=== PATIENT | male | born 1945 | race Caucasian/White ===

== ENCOUNTER 2021-12-14 09:51 | Inpatient (IN) | payer MEDICARE, OTHER ==
[2021-12-14 10:12] LABS: Glucose,Whole Blood 190 mg/dL (75-99)
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
[2021-12-14 10:40] LABS: Basophils % (A) 1 %; Eosinophils # (A) 0.1 k/uL (0-0.7); Eosinophils % (A) 2 %; HCT 44.2 % (39.0-53.0); HGB 15.2 gm/dL (13.0-17.5); Lymphocytes # (A) 1.4 k/uL (1.0-4.8); Lymphocytes % (A) 25 %; MCH 30.9 pg (25.0-35.0); MCHC 34.4 g/dL (31.0-37.0); Mean Platelet Volume 7.5; Monocytes # (A) 0.4 k/uL (0-1.0); Monocytes % (A) 7 %; Neutrophils # (A) 3.5 k/uL (1.3-7.7); Neutrophils % (A) 63 %; Platelet Count 162 k/uL (150-450); RBC 4.92 m/uL (4.30-5.90); RDW 13.5 % (11.5-15.5); WBC 5.6 k/uL (3.8-10.6)
[2021-12-14 10:52] LABS: Partial Thromboplastin Time 23.2 sec (22.0-30.0); Prothrombin Time 11.2 sec (9.0-12.0)
--- NOTE | 2021-12-14 11:00 | XR ---
EXAMINATION TYPE: XR chest 2V DATE OF EXAM: 12/14/2021 COMPARISON: Unavailable HISTORY: 76-year-old male, dysrhythmia TECHNIQUE: Frontal and lateral views of the chest are obtained. FINDINGS: Increased cardiac transverse diameter with slightly congested pulmonary vasculature, mild pulmonary e martin can't be excluded. Grossly unremarkable remainder of the lungs. No sizable pleural effusion or definite pneumothorax. Levoscoliosis of the upper thoracic spine. IMPRESSION: Please correlate for mild pulmonary edema. Increased cardiac transverse diameter.
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
[2021-12-14] MEDS ORDERED: NALOXONE 0.4 MG/ML 1 ML VIAL IV PRN (11:24)
[2021-12-14] MEDS ORDERED: IV FLUID CONTINUATION 1,000 ML IV ONE (11:52)
[2021-12-14] MEDS ORDERED: LIDOCAINE (PF) 10 MG/ML 5ML AMP SQ ONE ×3 (12:10→12:12)
[2021-12-14] MEDS ORDERED: LIDOCAINE 1% INJ 10MG/ML (20 ML MDV) SQ ONE (12:12)
[2021-12-14] MEDS ORDERED: LIDOCAINE 1% INJ 10MG/ML (10 ML MDV) SQ ONE (12:21)
[2021-12-14 13:35] LABS: Glucose,Whole Blood 160 mg/dL (75-99)
[2021-12-14] MEDS ORDERED: FAMOTIDINE 20 MG TAB PO PRN (13:35)
--- NOTE | 2021-12-14 14:02 | PCN ---
PROCEDURE NOTE PROCEDURE NOTE: INDICATION: Complete heart block. PROCEDURE DESCRIPTION: After obtaining informed consent, a temporary transvenous pacemaker was performed via the left femoral vein. Left femoral venous access was obtained using modified Seldinger technique, and the temporary transvenous pacemaker was floated into the right ventricle under fluoroscopic guidance. Adequate pacing and sensing thresholds were obtained and the temporary pacemaker was sutured into position. We will watch him overnight in the ICU and if he continues to require the temporary pacemaker, we will perform a permanent pacemaker on him. MMKILO / IJN: [id number] /
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
[2021-12-14 14:15] LABS: ALT 28 U/L (4-49); AST 31 U/L (17-59); African American GFR (CKD) >90 (>60 ml/min/1.73 sqM); Albumin 4.1 g/dL (3.5-5.0); Alkaline Phosphatase 32 U/L (38-126); Anion Gap 10 mmol/L; Blood Urea Nitrogen 16 mg/dL (9-20); Calcium 8.8 mg/dL (8.4-10.2); Carbon Dioxide 18 mmol/L (22-30); Chloride 110 mmol/L (98-107); Glucose 135 mg/dL (74-99); Magnesium 1.8 mg/dL (1.6-2.3); Non-African American GFR(CKD) 83 (>60 ml/min/1.73 sqM); Potassium 4.5 mmol/L (3.5-5.1); Sodium 138 mmol/L (137-145); Total Protein 6.8 g/dL (6.3-8.2)
[2021-12-14] MEDS ORDERED: Magnesium Replacement Protocol 1 EACH MISC MISCELLANE PRN (14:45)
[2021-12-14] MEDS: NON FORMULARY DRUG (Icosapent Ethyl [Vascepa] 0.5 GM Capsule) PO SCH (15:37)
[2021-12-14] MEDS: MAGNESIUM SULFATE-D5W PMX 1 GM in DEXTROSE/WATER 1 100ML.BAG IVPB SCH ×2 (16:00→17:41)
[2021-12-14 16:58] LABS: Glucose,Whole Blood 126 mg/dL (75-99)
[2021-12-14] MEDS: INSULIN ASPART (NovoLOG) 100 UNIT/ML VIAL SQ SCH ×2 (17:28→20:39)
[2021-12-14 20:32] LABS: Glucose,Whole Blood 141 mg/dL (75-99)
[2021-12-14] MEDS: ATORVASTATIN 10 MG TAB PO SCH (20:40)
[2021-12-14] MEDS: MELATONIN 3 MG TABLET PO SCH (20:40)
[2021-12-14] MEDS: FAMOTIDINE 20 MG TAB PO SCH (20:40)
[2021-12-15 06:14] LABS: Basophils % (A) 0 %; Eosinophils # (A) 0.1 k/uL (0-0.7); Eosinophils % (A) 2 %; HCT 44.6 % (39.0-53.0); HGB 15.2 gm/dL (13.0-17.5); Lymphocytes # (A) 1.5 k/uL (1.0-4.8); Lymphocytes % (A) 25 %; MCH 30.9 pg (25.0-35.0); MCHC 34.2 g/dL (31.0-37.0); MCV 90.3 fL (80.0-100.0); Monocytes # (A) 0.4 k/uL (0-1.0); Monocytes % (A) 6 %; Neutrophils # (A) 3.9 k/uL (1.3-7.7); Neutrophils % (A) 64 %; Platelet Count 183 k/uL (150-450); RBC 4.94 m/uL (4.30-5.90); RDW 13.9 % (11.5-15.5); WBC 6.1 k/uL (3.8-10.6)
[2021-12-15 06:38] LABS: Glucose,Whole Blood 136 mg/dL (75-99)
--- NOTE | 2021-12-15 06:44 | ECHOF ---
Referral Reason:LV function, complete heart block MEASUREMENTS -------- HEIGHT: 195.6 cm WEIGHT: 124.7 kg BP: 142/63 RVIDd: 3.1 cm (< 3.3) IVSd: 1.7 cm (0.6 - 1.1) LVIDd: 4.7 cm (3.9 - 5.3) LVPWd: 1.5 cm (0.6 - 1.1) IVSs: 2.1 cm LVIDs: 3.3 cm LVPWs: 1.9 cm LA Diam: 3.5 cm (2.7 - 3.8) Ao Diam: 3.6 cm (2.0 - 3.7) MV EXCURSION: 10.542 mm (> 18.000) MV EF SLOPE: 17 mm/s (70 - 150) EPSS: 1.1 cm MV E Baltazar: 0.61 m/s MV DecT: 214 ms MV A Baltazar: 0.66 m/s MV E/A Ratio: 0.92 RAP: 5.00 mmHg RVSP: 26.84 mmHg FINDINGS -------- Paced rhythm. This was a technically difficult study with suboptimal views. The left ventricular size is normal. There is moderate to severe concentric left ventricular hypert rophy. Overall left ventricular systolic function is mildly impaired with, an EF between 45 - 50 %. The right ventricle is normal in size. The left atrium is normal in size. The right atrium is normal in size. 3 ml of Lumason was utilized for enhancement of images. The aortic valve is trileaflet, and appears structurally normal. No aortic stenosis or regurgitation. The mitral valve is normal. Mild tricuspid regurgitation present. Right ventricular systolic pressure is normal at < 35 mmHg. The pulmonic valve is normal. The aortic root size is normal. There is no pericardial effusion. CONCLUSIONS -------- 1. This was a technically difficult study with suboptimal views. 2. The left ventricular size is normal. 3. There is moderate to severe concentric left ventricular hypertrophy. 4. Overall left ventricular systolic function is mildly impaired with, an EF between 45 - 50 %. 5. 3 ml of Lumason was utilized for enhancement of images. 6. Mild tricuspid regurgitation present. 7. There is no pericardial effusion. [employer]: Allyson Obrien RDCS
[2021-12-15] MEDS: NON FORMULARY DRUG (Icosapent Ethyl [Vascepa] 0.5 GM Capsule) PO SCH ×2 (06:45→13:55)
[2021-12-15] MEDS: INSULIN ASPART (NovoLOG) 100 UNIT/ML VIAL SQ SCH ×4 (06:45→20:13)
[2021-12-15 06:48] LABS: African American GFR (CKD) >90 (>60 ml/min/1.73 sqM); Anion Gap 10 mmol/L; Blood Urea Nitrogen 14 mg/dL (9-20); Calcium 8.4 mg/dL (8.4-10.2); Carbon Dioxide 20 mmol/L (22-30); Chloride 108 mmol/L (98-107); Glucose 140 mg/dL (74-99); Non-African American GFR(CKD) 87 (>60 ml/min/1.73 sqM); Sodium 138 mmol/L (137-145)
[2021-12-15] MEDS ORDERED: ceFAZolin 1 GM in SODIUM CHLORIDE 0.9% IRRIG BTL 250 ML IRRIGATION PRN (07:00)
--- NOTE | 2021-12-15 07:36 | P.PN ---
Subjective Progress Note Date: 12/15/21 PROGRESS NOTE The patient presented yesterday with a syncopal episode, was noted to be in sinus mechanism with complete heart block. He has a known chronic left bundle branch block and a prior history of paroxysmal atrial fibrillation. He has a history of hypertension, hyperlipidemia and diabetes mellitus. He underwent placement of a temperature pacemaker yesterday and is scheduled to undergo permanent pacemaker implantation today. He is feeling well this morning. He is in sinus mechanism with one to one conduction with transient episodes of pacing. Hemodynamically he is stable. There is no evidence of atrial fibrillation or ventricular ectopic activity. His echocardiogram showed an ejection fraction of 45-50% with mild tricuspid regurgitation. He continues to be on amlodipine 5 mg daily, atorvastatin 10 mg daily,Farxiga, losartan 50 mg daily, insulin PHYSICAL EXAMINATION: 76-year-old male, alert and oriented no apparent distress. Blood pressure 136/70 heart rate 60 LUNGS: Clear to auscultation HEART: Regular rate and rhythm, S1, S2. No S3. Ejection systolic murmur ABDOMEN: Soft, nontender, no organomegaly EXTREMETIES: Trace edema on the left, status post amputation on the right. Temperature pacemaker in left femoral vein LAB: Potassium 4.0, BUN and creatinine 14 and 0.77. Hemoglobin 15.2. TSH 2.19 IMPRESSION1. [ Complete heart block with syncope, post temporary pacemaker. Patient has a history of paroxysmal atrial fibrillation but has been in sinus mechanism since admission. 2. History of hypertension 3. Mild cardiomyopathy, chronic 4. history of diabetes 5. Hyperlipidemia 6. Status post right lower extremity amputation PLAN: 1. Proceed with permanent pacemaker implantation today 2. If stable restart anticoagulation tomorrow 3. Follow up pressure and adjust treatment as needed. Objective - Vital Signs Vital signs: Vital Signs Temp 97.5 F L 12/15/21 04:00 Pulse 61 12/15/21 07:00 Resp 21 12/15/21 07:00 BP 136/70 12/15/21 07:00 Pulse Ox 98 12/15/21 07:00 Intake & Output 12/14/21 12/15/21 12/15/21 18:59 06:59 18:59 Intake Total 390 240 20 Output Total 150 950 0 Balance 240 -710 20 Weight 124.738 kg 118.9 kg Intake: IV 190 240 20 .9 KVO 70 120 10 TVP 70 120 10 Intake, IV Titration 200 Amount Magnesium Sulfate-D5w Pmx 200 1 gm In Dextrose/Water 1 100ml.bag @ 100 mls/hr IVPB Q1H [facility] Rx#: [id number] Output: Urine 150 950 0 Other: Voiding Method Urinal Urinal # Bowel Movements 1 1 - Labs CBC & Chem 7: 12/15/21 05:51 12/15/21 05:51 Labs: Abnormal Lab Results - Last 24 Hours (Table) 12/14/21 12/14/21 12/14/21 Range/Units 10:11 13:33 13:51 Chloride 110 H (98-107) mmol/L Carbon Dioxide 18 L (22-30) mmol/L Glucose 135 H (74-99) mg/dL POC Glucose (mg/dL) 190 H 160 H (75-99) mg/dL Alkaline Phosphatase 32 L (38-126) U/L Troponin I (0.000-0.034) ng/mL 12/14/21 12/14/21 12/14/21 Range/Units 13:51 16:57 20:30 Chloride (98-107) mmol/L Carbon Dioxide (22-30) mmol/L Glucose (74-99) mg/dL POC Glucose (mg/dL) 126 H 141 H (75-99) mg/dL Alkaline Phosphatase (38-126) U/L Troponin I 0.053 H* (0.000-0.034) ng/mL 12/15/21 12/15/21 Range/Units 05:51 06:36 Chloride 108 H (98-107) mmol/L Carbon Dioxide 20 L (22-30) mmol/L Glucose 140 H (74-99) mg/dL POC Glucose (mg/dL) 136 H (75-99) mg/dL Alkaline Phosphatase (38-126) U/L Troponin I (0.000-0.034) ng/mL
[2021-12-15] MEDS ORDERED: IV FLUID CONTINUATION 400 ML IV ONE (07:40)
[2021-12-15] MEDS ORDERED: IV FLUID CONTINUATION 800 ML IV ONE (07:40)
[2021-12-15] MEDS ORDERED: IOPAMIDOL-370 50ML BTL INJ ONE (07:56)
[2021-12-15] MEDS: NON FORMULARY DRUG (Dapagliflozin Propanediol [Farxiga] 5 MG Tablet) PO SCH (07:57)
[2021-12-15] MEDS ORDERED: fentaNYL (PF) 50 MCG/ML 2 ML AMP ONE (08:15)
[2021-12-15] MEDS ORDERED: fentaNYL (PF) 50 MCG/ML 2 ML AMP IV ONE (08:17)
[2021-12-15] MEDS ORDERED: MIDAZOLAM 2 MG/2 ML VIAL IV ONE (08:21)
[2021-12-15] MEDS ORDERED: LIDOCAINE 1% INJ 10MG/ML (20 ML MDV) SQ ONE ×2 (08:22→08:48)
[2021-12-15] MEDS ORDERED: ACETAMINOPHEN IV (For NPO) 1,000 MG in EMPTY BAG 1 BAG IVPB ONE (09:29)
[2021-12-15] MEDS ORDERED: ACETAMINOPHEN TAB 325 MG TAB PO PRN (09:29)
[2021-12-15] MEDS: TAMSULOSIN 0.4 MG CAP.ER.24H PO SCH (10:53)
[2021-12-15] MEDS: FAMOTIDINE 20 MG TAB PO SCH ×2 (10:53→20:12)
[2021-12-15] MEDS: LOSARTAN 50 MG TAB PO SCH (10:53)
[2021-12-15] MEDS: amLODIPine 5 MG TAB PO SCH (10:53)
[2021-12-15] MEDS: LINAGLIPTIN 5 MG TABLET PO SCH (10:53)
[2021-12-15 11:39] LABS: Glucose,Whole Blood 157 mg/dL (75-99)
[2021-12-15] MEDS: CALCIUM CARBONATE 500 MG CHEWABLE PO PRN (12:17)
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
--- NOTE | 2021-12-15 16:49 | P.PCN ---
Date of Procedure: 12/15/21 Preoperative Diagnosis: High degree AV block, syncope Postoperative Diagnosis: Successful implantation of dual-chamber pacemaker Procedure(s) Performed: Insertion of dual-chamber pacemaker, axillary venography Description of Procedure: HISTORY: This is a 76-year-old gentleman who was admitted to the hospital with an episode of syncope and evidence of A-V dissociation with a long pauses. Patient had a temporary pacemaker by Dr. Hernandez. A permanent pacemaker insertion is requested. CONSENT:I have discussed the risks, benefits and alternative therapies for the above-mentioned procedure and for both sedation/analgesia as well as necessary blood product administration, if indicated, as they pertain to this patient. The patient has indicated understanding and acceptance of the risks and procedures discussed. PROCEDURE: Patient was brought to the lab in a fasting state. Patient was prepped and draped in the usual fashion. Patient was given IV sedation with fentanyl and Versed. The skin below the left clavicle was infiltrated with lidocaine. An incision was made parallel to deltopectoral groove was deepened until the pectoral fascia was exposed. A pocket was created by blunt dissection and cautery. Axillary venography was performed to delineate the course of the axillary vein. 2 sticks were performed into extrathoracic portion of the axillary vein and 2 sheaths were advanced over the guidewires and left in subclavian vein. Conscious Sedation: Versed 1 mg Fentanyl 50 g Duration 52 minutes LEADS: ATRIAL: This is manufactured by [employer]. The model number is 5076-52 and the serial number is [id number] VENTRICULAR: This is manufactured by [employer]. Model number is 5076-58. The serial number is [id number] THE DEVICE: This is manufactured by [employer]. The model number is [id number] and the serial number is [id number] The ventricular lead is maneuvered l with help of a straight and curved stylets into the left ventricle apical region. Satisfactory position was obtained and threshold measurements were made. The atrial lead was then maneuvered into the right atrial appendage. And thresholds were obtained. THRESHOLDS: ATRIUM: The minimum patient threshold is 1 V at pulse width of 0.4. The impedance is 532 P-wave: 1.5 mV VENTRICLE: The minimum patient threshold is 0.5 V at pulse width of 0.4 ms. The impedance is 988 R-wave:, 13.5 The leads and pulse generator remained in the pocket after it was washed with antibiotics. Pocket was closed in the usual fashion. The fascia was closed with 2-0 Prolene ,the subcutaneous tissue was closed with 3-0 Prolene and the skin was closed with 4-0 Prolene. PROGRAMMING: MODE: DDD RATE: 60-130 OUTPUT: Atrium : 3.5 V Ventricle: 3.5 V FINAL IMPRESSION: 1. Axillary venography #2. Successful implantation of dual- chamber pacemaker COMPLICATIONS: None PLAN: Anterior to monitor him on the telemetry unit. Prophylactic antibiotics. Chest x-ray in the morning. Possible discharge in 24 hours
[2021-12-15 17:05] LABS: Glucose,Whole Blood 132 mg/dL (75-99)
[2021-12-15 20:06] LABS: Glucose,Whole Blood 169 mg/dL (75-99)
[2021-12-15] MEDS: ATORVASTATIN 10 MG TAB PO SCH (20:12)
[2021-12-15] MEDS: MELATONIN 3 MG TABLET PO SCH (20:14)
[2021-12-16] MEDS: NON FORMULARY DRUG (Icosapent Ethyl [Vascepa] 0.5 GM Capsule) PO SCH ×2 (05:32→17:21)
[2021-12-16 06:15] LABS: Glucose,Whole Blood 177 mg/dL (75-99)
[2021-12-16] MEDS: INSULIN ASPART (NovoLOG) 100 UNIT/ML VIAL SQ SCH ×4 (06:16→21:06)
--- NOTE | 2021-12-16 07:49 | XR ---
EXAMINATION TYPE: XR chest 2V DATE OF EXAM: 12/16/2021 COMPARISON: Chest x-ray 2 days ago. HISTORY: Lead placement check. TECHNIQUE: Frontal and lateral views of the chest are obtained. FINDINGS: New dual-lead pacemaker with leads terminating at level of right atrium and right ventricle . Evaluation suboptimal due to large body habitus. Lungs remain clear. New small to tiny left pleural effusion. Stable cardiomegaly. No pneumothorax identified. Cholecystectomy clips on lateral view. Mu ltilevel spurring in the thoracic spine. IMPRESSION: Suboptimal study. No pneumothorax identified. New small to tiny left pleural effusion no mehnaz. New dual lead pacemaker present.
[2021-12-16] MEDS: LINAGLIPTIN 5 MG TABLET PO SCH (09:31)
[2021-12-16] MEDS: TAMSULOSIN 0.4 MG CAP.ER.24H PO SCH (09:31)
[2021-12-16] MEDS: LOSARTAN 50 MG TAB PO SCH (09:31)
[2021-12-16] MEDS: FAMOTIDINE 20 MG TAB PO SCH ×2 (09:31→19:46)
[2021-12-16] MEDS: amLODIPine 5 MG TAB PO SCH (09:31)
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
--- NOTE | 2021-12-16 11:20 | P.PN ---
Subjective Progress Note Date: 12/16/21 HISTORY OF PRESENT ILLNESS: This is a 76-year-old male with a past medical history significant for right kppzv-ate-wrwh amputation, atrial fibrillation, hypertension, hyperlipidemia, and diabetes. Patient follows in the office with Dr. Hernandez. We have been asked to see the patient in consultation for syncope and complete heart block. Patient examined at the bedside. Patient states he was walking to his bathroom and was feeling in his usual state of health. He denied any dizziness or lightheadness. He states while he was sitting on the toilet, he blacked out. He was unsure how long he was out for. He states when he came to, he was sitting on the toilet and he appeared to be very weak. He currently denies any chest pain or pressure. Denies SOB. Denies dizziness or lightheadedness. He was found to be in complete heart block upon presentation to the ER. The patient is prescribed metoprolol 25mg BID. He states he last took his medications last night. * EKG reveals complete heart block * Chest xray please correlate for mild pulmonary edema. Increased cardiac transverse diameter. * Laboratory data: WBC 5.6. Hemoglobin 15.1. Platelet count 162. INR 1.0. * Current home cardiac medications include metoprolol tartrate 25 mg twice a day, amlodipine 5 mg daily, simvastatin 20 mg at night, losartan 50mg daily, aspirin 81 mg daily, and Eliquis 5 mg twice a day * Most recent echocardiogram obtained in 2016 revealed ejection fraction 45% * Patient underwent Lexiscan stress test in 2016 which was negative for ischemia 12/16/2021 Patient examined this morning at the bedside. Patient denies chest pain or pressure. He denies shortness of breath. He underwent dual-chamber pacemaker insertion yesterday. Chest x-ray obtained was no pneumothorax identified. Patient's vital signs are stable. PHYSICAL EXAM: VITAL SIGNS: Reviewed. GENERAL: Well-developed in no acute distress. HEENT: Head is normocephalic. Pupils are equal, round. Sclerae anicteric. Mucous membranes of the mouth are moist. Neck supple. No JVD or thyromegaly LUNGS: Respirations even and unlabored. Lungs essentially clear to auscultation bilaterally. HEART: Regular rate and rhythm. S1 and S2 heard. ABDOMEN: Soft. Nondistended. Nontender. EXTREMITIES: Normal range of motion. No clubbing or cyanosis. Peripheral pulses intact. No left lower extremity edema. Right AKA noted. NEUROLOGIC: Awake and alert. Oriented x 3. ASSESSMENT: Syncope Complete heart block Paroxysmal atrial fibrillation, anticoagulated with Eliquis Hypertension Hyperlipidemia Diabetes History of right AKA PLAN: Continue current cardiac medications Resume metoprolol Patient may resume Eliquis tomorrow evening Patient to be discharged home today from a cardiac standpoint and follow up outpatient with Dr. Bernstein Nurse practitioner note has been reviewed by physician. Signing provider agrees with the documented findings, assessment, and plan of care. Objective - Vital Signs Vital signs: Vital Signs Temp 97.8 F 12/16/21 08:00 Pulse 80 12/16/21 08:00 Resp 18 12/16/21 08:00 BP 143/65 12/16/21 08:00 Pulse Ox 96 12/16/21 08:00 Intake & Output 12/15/21 12/16/21 12/16/21 18:59 06:59 18:59 Intake Total 405 1025 Output Total 510 400 Balance -105 625 Intake: IV 285 0 .9 KVO 90 0 TVP 20 ceFAZolin 2 gm In Sodium 50 Chloride 0.9% 50 ml @ 100 mls/hr IVPB ONCE PRN Rx# :[id number] Oral 120 1025 Output: Urine 510 400 Other: Voiding Method Urinal Toilet Toilet Urinal Urinal # Voids 400 - Labs CBC & Chem 7: 12/15/21 05:51 12/15/21 05:51 Labs: Abnormal Lab Results - Last 24 Hours (Table) 12/15/21 12/15/21 12/15/21 Range/Units 11:38 17:04 20:04 POC Glucose (mg/dL) 157 H 132 H 169 H (75-99) mg/dL 12/16/21 Range/Units 06:12 POC Glucose (mg/dL) 177 H (75-99) mg/dL
[2021-12-16] MEDS: NON FORMULARY DRUG (Dapagliflozin Propanediol [Farxiga] 5 MG Tablet) PO SCH (11:22)
[2021-12-16] MEDS: METOPROLOL TARTRATE 25 MG TAB PO SCH ×2 (11:35→19:46)
[2021-12-16 11:42] LABS: Glucose,Whole Blood 139 mg/dL (75-99)
[2021-12-16] MEDS: CALCIUM CARBONATE 500 MG CHEWABLE PO PRN (14:08)
[2021-12-16] MEDS ORDERED: PANTOPRAZOLE 40 MG TABLET PO STA (15:04)
[2021-12-16] MEDS ORDERED: ONDANSETRON 4 MG/2 ML VIAL IVP STA (15:04)
[2021-12-16 16:17] LABS: Glucose,Whole Blood 248 mg/dL (75-99)
[2021-12-16] MEDS ORDERED: bisacodyL 10 MG SUPP RECTAL STA (17:43)
[2021-12-16] MEDS: SODIUM CHLORIDE 0.9% 1,000 ML IV SCH (17:56)
--- NOTE | 2021-12-16 18:49 | XR ---
EXAMINATION TYPE: XR abdomen 2V DATE OF EXAM: 12/16/2021 6:26 PM INDICATION: Patient age:Male; 76 years old; Reason for study: r/o bowel obstruction vs ileus; COMPARISON: None. TECHNIQUE: One radiographic view of the abdomen was obtained. FINDINGS: There is gaseous distended stomach. Cardiac conduction The bowel gas pattern is nonspecific without dilated loops of small or large bowel. There is no evidence for organomegaly or pneumoperito neum. The osseous structures are intact. No abnormal calcifications are present. Fecal material and gas are demonstrated throughout the colon and rectum. IMPRESSION: Nonspecific bowel gas pattern without radiographic evidence for acute process no radiographic evidenc e for bowel obstruction.
[2021-12-16] MEDS: ATORVASTATIN 10 MG TAB PO SCH (19:45)
[2021-12-16] MEDS: MELATONIN 3 MG TABLET PO SCH (19:46)
[2021-12-16 20:36] LABS: Glucose,Whole Blood 177 mg/dL (75-99)
[2021-12-17] MEDS: SODIUM CHLORIDE 0.9% 1,000 ML IV SCH ×2 (06:20→19:55)
[2021-12-17] MEDS: NON FORMULARY DRUG (Icosapent Ethyl [Vascepa] 0.5 GM Capsule) PO SCH ×2 (06:20→17:22)
[2021-12-17 06:30] LABS: Glucose,Whole Blood 158 mg/dL (75-99)
[2021-12-17] MEDS: INSULIN ASPART (NovoLOG) 100 UNIT/ML VIAL SQ SCH ×4 (06:32→19:55)
[2021-12-17] MEDS: LOSARTAN 50 MG TAB PO SCH (09:14)
[2021-12-17] MEDS: METOPROLOL TARTRATE 25 MG TAB PO SCH ×2 (09:14→19:55)
[2021-12-17] MEDS: amLODIPine 5 MG TAB PO SCH (09:14)
[2021-12-17] MEDS: LINAGLIPTIN 5 MG TABLET PO SCH (09:14)
[2021-12-17] MEDS: FAMOTIDINE 20 MG TAB PO SCH ×2 (09:14→19:55)
[2021-12-17] MEDS: TAMSULOSIN 0.4 MG CAP.ER.24H PO SCH (09:14)
[2021-12-17] MEDS: NON FORMULARY DRUG (Dapagliflozin Propanediol [Farxiga] 5 MG Tablet) PO SCH (10:52)
[2021-12-17 11:34] LABS: Glucose,Whole Blood 202 mg/dL (75-99)
--- NOTE | 2021-12-17 14:37 | P.PN ---
Subjective Progress Note Date: 12/17/21 PROGRESS NOTE The patient presented yesterday with a syncopal episode, was noted to be in sinus mechanism with complete heart block. He has a known chronic left bundle branch block and a prior history of paroxysmal atrial fibrillation. He has a history of hypertension, hyperlipidemia and diabetes mellitus. He underwent placement of a temperature pacemaker yesterday and is scheduled to undergo permanent pacemaker implantation today. He is feeling well this morning. He is in sinus mechanism with one to one conduction with transient episodes of pacing. Hemodynamically he is stable. There is no evidence of atrial fibrillation or ventricular ectopic activity. His echocardiogram showed an ejection fraction of 45-50% with mild tricuspid regurgitation. He continues to be on amlodipine 5 mg daily, atorvastatin 10 mg daily,Farxiga, losartan 50 mg daily, insulin December 17: The patient is complaining of abdominal discomfort but no chest discomfort. His pacemaker appears to be clean. He denies any dizziness or palpitation. He has no nausea or vomiting. He continues to be on amlodipine 5 mg daily, Lipitor 10 mg daily, insulin, Cozaar 50 mg daily, metoprolol 25 mg twice a day. PHYSICAL EXAMINATION: 76-year-old male, alert and oriented no apparent distress. Blood pressure 111/89 heart rate 69 LUNGS: Clear to auscultation HEART: Regular rate and rhythm, S1, S2. No S3. Ejection systolic murmur ABDOMEN: Soft, nontender, no organomegaly EXTREMETIES: Trace edema on the left, status post amputation on the right. Pacemaker site clean IMPRESSION 1. Status post permanent pacemaker for complete heart block 2. History of hypertension 3. Mild cardiomyopathy, chronic 4. history of diabetes 5. Hyperlipidemia 6. Status post right lower extremity amputation 7. Paroxysmal atrial fibrillation PLAN: 1. Restart anticoagulation 2. Stable to be discharged home from the cardiac standpoint and follow-up as an outpatient with Dr. Hernandez. Objective - Vital Signs Vital signs: Vital Signs Temp 98.1 F 12/17/21 11:42 Pulse 69 12/17/21 14:00 Resp 20 12/17/21 14:00 BP 116/89 12/17/21 11:42 Pulse Ox 96 12/17/21 11:42 Intake & Output 12/16/21 12/17/21 12/17/21 18:59 06:59 18:59 Intake Total 1460 1970 Output Total 200 950 Balance 1260 1020 Intake: Intake, IV Titration 1000 Amount Sodium Chloride 0.9% 1, 1000 000 ml @ 75 mls/hr IV . [id number] [facility] Rx#:[id number] Oral 1460 970 Output: Urine 200 950 Other: Voiding Method Toilet Toilet Toilet Urinal Urinal Urinal # Voids 1 - Labs CBC & Chem 7: 12/15/21 05:51 12/15/21 05:51 Labs: Abnormal Lab Results - Last 24 Hours (Table) 12/16/21 12/16/21 12/17/21 Range/Units 16:15 20:34 06:29 POC Glucose (mg/dL) 248 H 177 H 158 H (75-99) mg/dL 12/17/21 Range/Units 11:32 POC Glucose (mg/dL) 202 H (75-99) mg/dL
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
[2021-12-17 16:21] LABS: Glucose,Whole Blood 151 mg/dL (75-99)
[2021-12-17] MEDS: MELATONIN 3 MG TABLET PO SCH (19:54)
[2021-12-17] MEDS: LACTULOSE 20 GM/30 ML CUP PO SCH (19:54)
[2021-12-17] MEDS: ATORVASTATIN 10 MG TAB PO SCH (19:54)
[2021-12-17] MEDS: APIXABAN 5 MG TAB PO SCH (19:54)
[2021-12-17] MEDS: SENNOSIDES-DOCUSATE SODIUM 1 EACH TAB PO SCH (19:54)
[2021-12-17 20:02] LABS: Glucose,Whole Blood 185 mg/dL (75-99)
[2021-12-17 20:34] LABS: Appearance,Urine Cloudy (Clear); Bacteria,Urine Rare /hpf; Bilirubin,Urine Negative (Negative); Blood,Urine Negative (Negative); Color,Urine Yellow; Glucose,Urine (UA) Trace (Negative); Hyaline Casts,Urine 3 /lpf (0-2); Ketones,Urine Negative (Negative); Leukocyte Esterase,Urine Moderate (Negative); Mucus,Urine Few /hpf; Nitrite,Urine Negative (Negative); PH, Urine 5.5 (5.0-8.0); Protein,Urine 1+ (Negative); RBC,Urine 1 /hpf (0-5); Specific Gravity,Urine 1.024 (1.001-1.035); Squamous Epithelial Cell,Urine 1 /hpf (0-4); Urobilinogen,Urine <2.0 mg/dL (<2.0); WBC,Urine 8 /hpf (0-5)
[2021-12-18] MEDS: NON FORMULARY DRUG (Icosapent Ethyl [Vascepa] 0.5 GM Capsule) PO SCH ×2 (06:17→17:30)
[2021-12-18 06:37] LABS: Glucose,Whole Blood 138 mg/dL (75-99)
[2021-12-18] MEDS: INSULIN ASPART (NovoLOG) 100 UNIT/ML VIAL SQ SCH ×4 (06:42→21:03)
[2021-12-18] MEDS: NON FORMULARY DRUG (Dapagliflozin Propanediol [Farxiga] 5 MG Tablet) PO SCH (09:36)
[2021-12-18] MEDS: TAMSULOSIN 0.4 MG CAP.ER.24H PO SCH (09:38)
[2021-12-18] MEDS: LACTULOSE 20 GM/30 ML CUP PO SCH ×2 (09:38→21:04)
[2021-12-18] MEDS: SENNOSIDES-DOCUSATE SODIUM 1 EACH TAB PO SCH ×2 (09:38→21:04)
[2021-12-18] MEDS: METOPROLOL TARTRATE 25 MG TAB PO SCH ×2 (09:38→21:03)
[2021-12-18] MEDS: LINAGLIPTIN 5 MG TABLET PO SCH (09:38)
[2021-12-18] MEDS: LOSARTAN 50 MG TAB PO SCH (09:38)
[2021-12-18] MEDS: FAMOTIDINE 20 MG TAB PO SCH ×2 (09:38→21:04)
[2021-12-18] MEDS: amLODIPine 5 MG TAB PO SCH (09:38)
[2021-12-18] MEDS: APIXABAN 5 MG TAB PO SCH ×2 (09:38→21:03)
[2021-12-18] MEDS: SODIUM CHLORIDE 0.9% 1,000 ML IV SCH (09:39)
[2021-12-18 09:59] LABS: Basophils % (A) 0 %; Eosinophils # (A) 0.1 k/uL (0-0.7); Eosinophils % (A) 1 %; HCT 38.8 % (39.0-53.0); HGB 12.8 gm/dL (13.0-17.5); Lymphocytes # (A) 1.1 k/uL (1.0-4.8); Lymphocytes % (A) 15 %; MCH 30.1 pg (25.0-35.0); MCV 91.2 fL (80.0-100.0); Mean Platelet Volume 7.2; Monocytes # (A) 0.4 k/uL (0-1.0); Monocytes % (A) 6 %; Neutrophils # (A) 5.4 k/uL (1.3-7.7); Neutrophils % (A) 75 %; Platelet Count 141 k/uL (150-450); RBC 4.26 m/uL (4.30-5.90); RDW 13.8 % (11.5-15.5); WBC 7.2 k/uL (3.8-10.6)
[2021-12-18 10:17] LABS: Albumin 3.1 g/dL (3.5-5.0); Calcium 8.3 mg/dL (8.4-10.2); Potassium 4.2 mmol/L (3.5-5.1); Total Bilirubin 1.2 mg/dL (0.2-1.3); Total Protein 5.5 g/dL (6.3-8.2)
[2021-12-18 11:25] LABS: Glucose,Whole Blood 162 mg/dL (75-99)
--- NOTE | 2021-12-18 15:09 | P.PN ---
Subjective Progress Note Date: 12/18/21 PROGRESS NOTE The patient presented yesterday with a syncopal episode, was noted to be in sinus mechanism with complete heart block. He has a known chronic left bundle branch block and a prior history of paroxysmal atrial fibrillation. He has a history of hypertension, hyperlipidemia and diabetes mellitus. He underwent placement of a temperature pacemaker yesterday and is scheduled to undergo permanent pacemaker implantation today. He is feeling well this morning. He is in sinus mechanism with one to one conduction with transient episodes of pacing. Hemodynamically he is stable. There is no evidence of atrial fibrillation or ventricular ectopic activity. His echocardiogram showed an ejection fraction of 45-50% with mild tricuspid regurgitation. He continues to be on amlodipine 5 mg daily, atorvastatin 10 mg daily,Farxiga, losartan 50 mg daily, insulin December 17: The patient is complaining of abdominal discomfort but no chest discomfort. His pacemaker appears to be clean. He denies any dizziness or palpitation. He has no nausea or vomiting. He continues to be on amlodipine 5 mg daily, Lipitor 10 mg daily, insulin, Cozaar 50 mg daily, metoprolol 25 mg twice a day. December 18: He feels better today, he had a bowel movement yesterday. He denies any chest discomfort. There is no evidence of dizziness or syncope. He continues to be in sinus mechanism. There is no evidence of pacemaker malfunction. He continues to be on amlodipine 5 mg daily, Lipitor 10 mg daily, insulin, Cozaar 50 mg daily, metoprolol 25 mg twice a day and Eliquis 5 mg twice a day PHYSICAL EXAMINATION: 76-year-old male, alert and oriented no apparent distress. Blood pressure 106/55 heart rate 63 LUNGS: Clear to auscultation HEART: Regular rate and rhythm, S1, S2. No S3. Ejection systolic murmur ABDOMEN: Soft, nontender, no organomegaly EXTREMETIES: Trace edema on the left, status post amputation on the right. Pacemaker site clean IMPRESSION 1. Status post permanent pacemaker for complete heart block 2. History of hypertension 3. Mild cardiomyopathy, chronic 4. history of diabetes 5. Hyperlipidemia 6. Status post right lower extremity amputation 7. Paroxysmal atrial fibrillation PLAN: 1. Continue present therapy 2. Probable outpatient rehab transfer tomorrow 3. Continue telemetry. Objective - Vital Signs Vital signs: Vital Signs Temp 98.1 F 12/18/21 12:00 Pulse 63 03/27/22 14:00 Resp 18 12/18/21 14:00 BP 106/55 12/18/21 12:00 Pulse Ox 97 12/18/21 12:00 Intake & Output 12/17/21 12/18/21 12/18/21 18:59 06:59 18:59 Intake Total 236 970 Output Total 200 Balance 236 770 Intake: Oral 236 970 Output: Urine 200 Other: Voiding Method Toilet Toilet Toilet Urinal Urinal Urinal # Voids 1 4 - Labs CBC & Chem 7: 12/18/21 09:42 12/18/21 09:42 Labs: Abnormal Lab Results - Last 24 Hours (Table) 12/17/21 12/17/21 12/17/21 Range/Units 16:18 19:41 19:48 RBC (4.30-5.90) m/uL Hgb (13.0-17.5) gm/dL Hct (39.0-53.0) % Plt Count (150-450) k/uL Sodium (137-145) mmol/L Carbon Dioxide (22-30) mmol/L BUN (9-20) mg/dL Glucose (74-99) mg/dL POC Glucose (mg/dL) 151 H 185 H (75-99) mg/dL Calcium (8.4-10.2) mg/dL Alkaline Phosphatase (38-126) U/L Total Protein (6.3-8.2) g/dL Albumin (3.5-5.0) g/dL Urine Protein 1+ H (Negative) Urine Glucose (UA) Trace H (Negative) Ur Leukocyte Esterase Moderate H (Negative) Urine WBC 8 H (0-5) /hpf Urine Bacteria Rare H (None) /hpf Hyaline Casts 3 H (0-2) /lpf Urine Mucus Few H (None) /hpf 12/18/21 12/18/21 12/18/21 Range/Units 05:57 09:42 09:42 RBC 4.26 L (4.30-5.90) m/uL Hgb 12.8 L (13.0-17.5) gm/dL Hct 38.8 L (39.0-53.0) % Plt Count 141 L (150-450) k/uL Sodium 131 L (137-145) mmol/L Carbon Dioxide 21 L (22-30) mmol/L BUN 23 H (9-20) mg/dL Glucose 191 H (74-99) mg/dL POC Glucose (mg/dL) 138 H (75-99) mg/dL Calcium 8.3 L (8.4-10.2) mg/dL Alkaline Phosphatase 33 L (38-126) U/L Total Protein 5.5 L (6.3-8.2) g/dL Albumin 3.1 L (3.5-5.0) g/dL Urine Protein (Negative) Urine Glucose (UA) (Negative) Ur Leukocyte Esterase (Negative) Urine WBC (0-5) /hpf Urine Bacteria (None) /hpf Hyaline Casts (0-2) /lpf Urine Mucus (None) /hpf 12/18/21 Range/Units 11:24 RBC (4.30-5.90) m/uL Hgb (13.0-17.5) gm/dL Hct (39.0-53.0) % Plt Count (150-450) k/uL Sodium (137-145) mmol/L Carbon Dioxide (22-30) mmol/L BUN (9-20) mg/dL Glucose (74-99) mg/dL POC Glucose (mg/dL) 162 H (75-99) mg/dL Calcium (8.4-10.2) mg/dL Alkaline Phosphatase (38-126) U/L Total Protein (6.3-8.2) g/dL Albumin (3.5-5.0) g/dL Urine Protein (Negative) Urine Glucose (UA) (Negative) Ur Leukocyte Esterase (Negative) Urine WBC (0-5) /hpf Urine Bacteria (None) /hpf Hyaline Casts (0-2) /lpf Urine Mucus (None) /hpf
[2021-12-18 16:53] LABS: Glucose,Whole Blood 134 mg/dL (75-99)
[2021-12-18 20:03] LABS: Glucose,Whole Blood 194 mg/dL (75-99)
[2021-12-18] MEDS: ATORVASTATIN 10 MG TAB PO SCH (21:03)
[2021-12-18] MEDS: MELATONIN 3 MG TABLET PO SCH (21:03)
[2021-12-19 00:15] VITALS: RESP 18
[2021-12-19 06:13] LABS: Glucose,Whole Blood 172 mg/dL (75-99)
[2021-12-19] MEDS: INSULIN ASPART (NovoLOG) 100 UNIT/ML VIAL SQ SCH ×2 (06:29→13:20)
[2021-12-19] MEDS: SODIUM CHLORIDE 0.9% 1,000 ML IV SCH ×2 (09:21→12:25)
[2021-12-19] MEDS: NON FORMULARY DRUG (Icosapent Ethyl [Vascepa] 0.5 GM Capsule) PO SCH (09:22)
[2021-12-19] MEDS: SENNOSIDES-DOCUSATE SODIUM 1 EACH TAB PO SCH (09:22)
[2021-12-19] MEDS: LACTULOSE 20 GM/30 ML CUP PO SCH (09:22)
[2021-12-19] MEDS: LINAGLIPTIN 5 MG TABLET PO SCH (09:23)
[2021-12-19] MEDS: amLODIPine 5 MG TAB PO SCH (09:23)
[2021-12-19] MEDS: APIXABAN 5 MG TAB PO SCH (09:23)
[2021-12-19] MEDS: LOSARTAN 50 MG TAB PO SCH (09:23)
[2021-12-19] MEDS: TAMSULOSIN 0.4 MG CAP.ER.24H PO SCH (09:23)
[2021-12-19] MEDS: FAMOTIDINE 20 MG TAB PO SCH (09:23)
[2021-12-19] MEDS: METOPROLOL TARTRATE 25 MG TAB PO SCH (09:23)
[2021-12-19] MEDS: NON FORMULARY DRUG (Dapagliflozin Propanediol [Farxiga] 5 MG Tablet) PO SCH (09:26)
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
--- NOTE | 2021-12-19 10:58 | P.PN ---
Subjective Progress Note Date: 12/19/21 HISTORY OF PRESENT ILLNESS: This is a 76-year-old male with a past medical history significant for right owmro-ojq-umyr amputation, atrial fibrillation, hypertension, hyperlipidemia, and diabetes. Patient follows in the office with Dr. Hernandez. We have been asked to see the patient in consultation for syncope and complete heart block. Patient examined at the bedside. Patient states he was walking to his bathroom and was feeling in his usual state of health. He denied any dizziness or lightheadness. He states while he was sitting on the toilet, he blacked out. He was unsure how long he was out for. He states when he came to, he was sitting on the toilet and he appeared to be very weak. He currently denies any chest pain or pressure. Denies SOB. Denies dizziness or lightheadedness. He was found to be in complete heart block upon presentation to the ER. The patient is prescribed metoprolol 25mg BID. He states he last took his medications last night. * EKG reveals complete heart block * Chest xray please correlate for mild pulmonary edema. Increased cardiac transverse diameter. * Laboratory data: WBC 5.6. Hemoglobin 15.1. Platelet count 162. INR 1.0. * Current home cardiac medications include metoprolol tartrate 25 mg twice a day, amlodipine 5 mg daily, simvastatin 20 mg at night, losartan 50mg daily, aspirin 81 mg daily, and Eliquis 5 mg twice a day * Most recent echocardiogram obtained in 2016 revealed ejection fraction 45% * Patient underwent Lexiscan stress test in 2016 which was negative for ischemia 12/16/2021 Patient examined this morning at the bedside. Patient denies chest pain or pressure. He denies shortness of breath. He underwent dual-chamber pacemaker insertion yesterday. Chest x-ray obtained was no pneumothorax identified. Patient's vital signs are stable. 12/19/2021 Patient examined this morning at the bedside. Patient denies chest pain or pressure. He denies shortness of breath. Vital signs are stable. Plan is for discharge to [facility] today. PHYSICAL EXAM: VITAL SIGNS: Reviewed. GENERAL: Well-developed in no acute distress. HEENT: Head is normocephalic. Pupils are equal, round. Sclerae anicteric. Mucous membranes of the mouth are moist. Neck supple. No JVD or thyromegaly LUNGS: Respirations even and unlabored. Lungs essentially clear to auscultation bilaterally. HEART: Regular rate and rhythm. S1 and S2 heard. ABDOMEN: Soft. Nondistended. Nontender. EXTREMITIES: Normal range of motion. No clubbing or cyanosis. Peripheral pulses intact. No left lower extremity edema. Right AKA noted. NEUROLOGIC: Awake and alert. Oriented x 3. ASSESSMENT: Syncope Complete heart block, s/p PPM insertion Paroxysmal atrial fibrillation, anticoagulated with Eliquis Hypertension Hyperlipidemia Diabetes History of right AKA PLAN: Continue current cardiac medications Patient to be discharged today from a cardiac standpoint and follow up ou tpatient with Dr. Hernandez Nurse practitioner note has been reviewed by physician. Signing provider agrees with the documented findings, assessment, and plan of care. Objective - Vital Signs Vital signs: Vital Signs Temp 97.5 F L 12/19/21 08:00 Pulse 68 12/19/21 08:00 Resp 18 12/19/21 08:00 BP 126/71 12/19/21 08:00 Pulse Ox 95 12/19/21 08:00 Intake & Output 12/18/21 12/19/21 12/19/21 18:59 06:59 18:59 Intake Total 618 240 Output Total 325 Balance 618 -325 240 Intake: Oral 618 240 Output: Urine 325 Other: Voiding Method Toilet Toilet Urinal Urinal # Bowel Movements 1 - Labs CBC & Chem 7: 12/18/21 09:42 12/18/21 09:42 Labs: Abnormal Lab Results - Last 24 Hours (Table) 12/18/21 12/18/21 12/18/21 Range/Units 11:24 16:51 20:01 POC Glucose (mg/dL) 162 H 134 H 194 H (75-99) mg/dL 12/19/21 Range/Units 06:12 POC Glucose (mg/dL) 172 H (75-99) mg/dL
[2021-12-19 12:27] LABS: Glucose,Whole Blood 153 mg/dL (75-99)
[2021-12-19 14:06] VITALS: PULSE 74
[2021-12-19 14:08] VITALS: BP 123/57; TEMP 97.7
== END 2021-12-19 14:43 | DRG 243 ==
LOC: EC 09:51 → 2SICU 11:24 → 3SCARD 12-15 20:57
PROVIDERS: ADMIT Internal Medicine; ATTEND Internal Medicine
PROC: 5A1223Z Performance of Cardiac Pacing, Continuous (ICD-10-PCS; 2021-12-14)
PROC: 02HK3JZ Insertion of Pacemaker Lead into Right Ventricle, Percutaneous Approach (ICD-10-PCS; 2021-12-14)
PROC: 02HK3JZ Insertion of Pacemaker Lead into Right Ventricle, Percutaneous Approach (ICD-10-PCS; principal; 2021-12-15 08:20)
PROC: 02H63JZ Insertion of Pacemaker Lead into Right Atrium, Percutaneous Approach (ICD-10-PCS; principal; 2021-12-15 08:20)
PROC: 0JH606Z Insertion of Pacemaker, Dual Chamber into Chest Subcutaneous Tissue and Fascia, Open Approach (ICD-10-PCS; principal; 2021-12-15 08:20)
DX: I44.2 Atrioventricular block, complete (principal); I42.9 Cardiomyopathy, unspecified; Z89.611 Acquired absence of right leg above knee; E11.9 Type 2 diabetes mellitus without complications; I48.0 Paroxysmal atrial fibrillation; Z20.822 Contact with and (suspected) exposure to COVID-19; R00.1 Bradycardia, unspecified; I10 Essential (primary) hypertension; I07.1 Rheumatic tricuspid insufficiency; E78.5 Hyperlipidemia, unspecified; N40.0 Benign prostatic hyperplasia without lower urinary tract symptoms; K21.9 Gastro-esophageal reflux disease without esophagitis; K59.00 Constipation, unspecified; Z79.01 Long term (current) use of anticoagulants; Z79.82 Long term (current) use of aspirin; Z79.84 Long term (current) use of oral hypoglycemic drugs; Z79.899 Other long term (current) drug therapy; Z90.49 Acquired absence of other specified parts of digestive tract; Z87.19 Personal history of other diseases of the digestive system; Z60.2 Problems related to living alone; Z98.890 Other specified postprocedural states; Z82.49 Family history of ischemic heart disease and other diseases of the circulatory system; Z80.8 Family history of malignant neoplasm of other organs or systems; Z82.3 Family history of stroke; Z81.2 Family history of tobacco abuse and dependence
CPT/HCPCS: 33208; 33210; 36415; 71046; 74019; 80048; 80053; 81001; 83735; 83880; 84443; 84484; 85025; 85610; 85730; 87635; 93005; 93306; 99285

== ENCOUNTER 2022-05-09 16:47 | Emergency (ER) | payer MEDICARE, OTHER ==
[2022-05-09 16:56] VITALS: BP 109/57; PULSE 77; RESP 18; TEMP 98.3
[2022-05-09 18:53] LABS: Basophils % (A) 1 %; Eosinophils # (A) 0.1 k/uL (0-0.7); Eosinophils % (A) 2 %; HCT 28.4 % (39.0-53.0); HGB 9.3 gm/dL (13.0-17.5); Hypochromasia Moderate; Lymphocytes # (A) 1.2 k/uL (1.0-4.8); Lymphocytes % (A) 21 %; MCHC 32.9 g/dL (31.0-37.0); MCV 88.3 fL (80.0-100.0); Mean Platelet Volume 7.3; Monocytes # (A) 0.4 k/uL (0-1.0); Monocytes % (A) 7 %; Neutrophils # (A) 3.8 k/uL (1.3-7.7); Neutrophils % (A) 68 %; Platelet Count 291 k/uL (150-450); Poikilocytosis Slight; RBC 3.21 m/uL (4.30-5.90); RDW 15.7 % (11.5-15.5); WBC 5.6 k/uL (3.8-10.6)
[2022-05-09 19:03] LABS: Calcium 9.1 mg/dL (8.4-10.2); Potassium 4.5 mmol/L (3.5-5.1); Total Bilirubin 0.2 mg/dL (0.2-1.3); Total Protein 6.5 g/dL (6.3-8.2)
[2022-05-09 19:04] LABS: Partial Thromboplastin Time 23.7 sec (22.0-30.0); Prothrombin Time 10.8 sec (9.0-12.0)
[2022-05-09] MEDS ORDERED: ONDANSETRON 4 MG/2 ML VIAL IVP STA (19:44)
[2022-05-09] MEDS ORDERED: SODIUM CHLORIDE 0.9% 1,000 ML IV STA (19:44)
[2022-05-09] MEDS ORDERED: FAMOTIDINE 20 MG/2 ML VIAL IV STA (19:44)
[2022-05-09] MEDS ORDERED: MORPHINE SULFATE 4 MG/ML SYRINGE IVP STA (19:44)
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
--- NOTE | 2022-05-09 20:45 | CT ---
EXAMINATION TYPE: CT abdomen pelvis w con DATE OF EXAM: 05/09/2022 COMPARISON: None HISTORY: LLQ abd pain CT DLP: 2378 mGycm Automated exposure control for dose reduction was used. CONTRAST: Performed with IV Contrast, patient injected with 100ml mL of Isovue 300. Images obtained from the diaphragm to the floor the pelvis with IV contrast. The lung bases are clear of infiltrate. No pleural effusion. Heart is enlarged. No pericardial effusi on. Liver spleen pancreas appear intact. There are clips from cholecystectomy. The bile ducts are not dil ated. There is irregular 7 cm mass that is anterior to the right kidney and in the region of the right adre nal gland. This appears separate from the duodenum and the pancreatic head. The mass has predominantl y soft tissue density. Right kidney shows a 3 cm interpolar cortical cyst. There is 2 cm left renal parapelvic cyst. There i s bilobed 6.5 cm cyst in the upper pole left kidney. Delayed images show normal renal excretion. The ureters are not dilated. Bladder distends smoothly. No inguinal hernia. No free fluid in the pelvis. There are sigmoid diverticula. No diverticulitis. Appendix appears normal. There is no mesenteric chavez ma. No ascites or free air. No sign of a bowel obstruction. The lumbar vertebra appear intact. No compression fracture. Bony pelvis is intact. The hip joints are intact. There is minor acetabular spurring. Proximal femurs are intact. IMPRESSION: There is high attenuation irregular mass extending inferiorly from the right adrenal glan d. This is most likely acute adrenal hemorrhage with hemorrhage into the retroperitoneum medial to th e right kidney. Underlying tumor is possible. Multiple renal cysts. Colonic diverticulosis without diverticulitis.
== END 2022-05-09 23:50 | disposition other institution (70) ==
LOC: EC 16:47
DX: D64.9 Anemia, unspecified (principal); K92.1 Melena; I10 Essential (primary) hypertension
CPT/HCPCS: 36415; 93005; 86900; 86901; 80053; 84484; 85025; 85610; 85730; 86850; 82272; 87635; 74177; 99285; 96374; 96375; 96361; J2270; J2405; Q9967

== ENCOUNTER 2022-06-20 13:49 | Observation (INO) | payer MEDICARE, OTHER ==
[2022-06-20 14:02] LABS: Glucose,Whole Blood 381 mg/dL (70-110)
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
[2022-06-20 14:32] LABS: Anisocytosis Slight; Basophils % (A) 0 %; Eosinophils % (A) 1 %; HCT 35.8 % (39.0-53.0); HGB 11.5 gm/dL (13.0-17.5); Hypochromasia Slight; Lymphocytes # (A) 0.3 k/uL (1.0-4.8); Lymphocytes % (A) 3 %; MCH 26.7 pg (25.0-35.0); Mean Platelet Volume 8.5; Monocytes # (A) 0.1 k/uL (0-1.0); Monocytes % (A) 2 %; Neutrophils # (A) 7.8 k/uL (1.3-7.7); Neutrophils % (A) 94 %; Platelet Count 165 k/uL (150-450); RDW 17.4 % (11.5-15.5); WBC 8.3 k/uL (3.8-10.6)
[2022-06-20 14:33] LABS: MCV 83.3 fL (80.0-100.0)
[2022-06-20 14:34] LABS: ALT 48 U/L (4-49); AST 43 U/L (17-59); African American GFR (CKD) >90 (>60 ml/min/1.73 sqM); Albumin 4.1 g/dL (3.5-5.0); Alkaline Phosphatase 42 U/L (38-126); Amylase 49 U/L (30-110); Anion Gap 12 mmol/L; Blood Urea Nitrogen 19 mg/dL (9-20); Calcium 8.9 mg/dL (8.4-10.2); Carbon Dioxide 19 mmol/L (22-30); Chloride 95 mmol/L (98-107); Glucose 356 mg/dL (74-99); Lipase 173 U/L (23-300); Non-African American GFR(CKD) >90 (>60 ml/min/1.73 sqM); Sodium 126 mmol/L (137-145); Total Bilirubin 0.7 mg/dL (0.2-1.3); Total Protein 6.2 g/dL (6.3-8.2)
[2022-06-20 14:42] LABS: Partial Thromboplastin Time 22.9 sec (22.0-30.0); Prothrombin Time 10.8 sec (9.0-12.0)
--- NOTE | 2022-06-20 14:42 | XR ---
EXAMINATION TYPE: XR KUB DATE OF EXAM: 06/20/2022 COMPARISON: NONE HISTORY: Pain TECHNIQUE: Single supine KUB image of the abdomen is obtained FINDINGS: Small bowel demonstrates no evidence for dilatation or air fluid levels. Gas and fecal material is seen in non-distended colon. No convincing evidence for pneumoperitoneum. No unusual calcifications. The lung bases are clear. The osseous structures are intact. IMPRESSION: 1. Overall nonobstructive bowel gas pattern.
[2022-06-20 14:45] LABS: Appearance,Urine Clear (Clear); Bilirubin,Urine Negative (Negative); Blood,Urine Negative (Negative); Color,Urine Colorless; Glucose,Urine (UA) 4+ (Negative); Ketones,Urine 1+ (Negative); Leukocyte Esterase,Urine Negative (Negative); Nitrite,Urine Negative (Negative); Protein,Urine Negative (Negative); Specific Gravity,Urine 1.021 (1.001-1.035); Urobilinogen,Urine <2.0 mg/dL (<2.0)
[2022-06-20] MEDS ORDERED: SODIUM CHLORIDE 0.9% 1,000 ML IV STA (15:22)
[2022-06-20] MEDS ORDERED: PANTOPRAZOLE 40 MG/10 ML VIAL IVP STA (15:22)
[2022-06-20] MEDS ORDERED: NALOXONE 0.4 MG/ML 1 ML VIAL IV PRN ×2 (17:26→17:32)
[2022-06-20 20:16] LABS: Glucose,Whole Blood 218 mg/dL (70-110)
[2022-06-20 21:29] VITALS: RESP 16; TEMP 97.6
[2022-06-20] MEDS: allopurinoL 300 MG TAB PO SCH (23:36)
[2022-06-20] MEDS: APIXABAN 5 MG TAB PO SCH (23:36)
[2022-06-20] MEDS ORDERED: DEXTROSE 50% SYRINGE 50 ML IVP PRN ×2 (23:39)
[2022-06-20] MEDS ORDERED: ACETAMINOPHEN TAB 325 MG TAB PO PRN (23:49)
[2022-06-21] MEDS: HEPARIN SODIUM,PORCINE/PF 5,000 UNIT/0.5 ML SYRINGE SQ SCH ×2 (00:21→08:16)
[2022-06-21 07:05] LABS: Glucose,Whole Blood 172 mg/dL (70-110)
[2022-06-21] MEDS ORDERED: INSULIN ASPART (NovoLOG) 100 UNIT/ML VIAL SQ SCH (07:30)
[2022-06-21] MEDS: allopurinoL 300 MG TAB PO SCH (08:16)
[2022-06-21] MEDS: APIXABAN 5 MG TAB PO SCH (08:16)
[2022-06-21] MEDS ORDERED: PANTOPRAZOLE 40 MG/10 ML VIAL IVP SCH (09:00)
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
[2022-06-21 10:20] VITALS: BP 154/86; PULSE 89
== END 2022-06-21 10:59 | disposition home or self-care (01) ==
LOC: EC 13:49 → 5NMEDONC 17:26 → INTOOBSV 17:26 → 5NMEDONC 18:02
PROVIDERS: ADMIT Internal Medicine; ATTEND Internal Medicine
DX: R10.9 Unspecified abdominal pain (principal); R11.0 Nausea; C85.90 Non-Hodgkin lymphoma, unspecified, unspecified site; E11.65 Type 2 diabetes mellitus with hyperglycemia; I10 Essential (primary) hypertension; E78.5 Hyperlipidemia, unspecified; I44.7 Left bundle-branch block, unspecified; E87.1 Hypo-osmolality and hyponatremia; K21.9 Gastro-esophageal reflux disease without esophagitis; I48.0 Paroxysmal atrial fibrillation; N40.0 Benign prostatic hyperplasia without lower urinary tract symptoms; D64.9 Anemia, unspecified; Z95.0 Presence of cardiac pacemaker; Z79.899 Other long term (current) drug therapy; Z79.84 Long term (current) use of oral hypoglycemic drugs; Z79.01 Long term (current) use of anticoagulants; Z90.49 Acquired absence of other specified parts of digestive tract; Z89.611 Acquired absence of right leg above knee; Z80.8 Family history of malignant neoplasm of other organs or systems; Z82.49 Family history of ischemic heart disease and other diseases of the circulatory system; Z92.21 Personal history of antineoplastic chemotherapy; Z82.3 Family history of stroke
CPT/HCPCS: 96372; 96376; 96361; 96374; 99285; 36415; 93005; 80053; 82150; 83690; 84484; 85025; 85610; 85730; 81003; 83036; 74018; G0378 ×2; C9113 ×2; J1644

== ENCOUNTER 2022-06-22 05:47 | Inpatient (IN) | payer MEDICARE, OTHER ==
[2022-06-22] MEDS ORDERED: SODIUM CHLORIDE 0.9% 500 ML 500 ML IV STA (06:27)
[2022-06-22 06:35] LABS: Anisocytosis Slight; Basophils % (A) 0 %; Eosinophils # (A) 0.1 k/uL (0-0.7); Eosinophils % (A) 1 %; HCT 37.5 % (39.0-53.0); HGB 12.2 gm/dL (13.0-17.5); Hypochromasia Slight; Lymphocytes # (A) 0.5 k/uL (1.0-4.8); Lymphocytes % (A) 6 %; MCH 27.1 pg (25.0-35.0); MCHC 32.4 g/dL (31.0-37.0); MCV 83.7 fL (80.0-100.0); Mean Platelet Volume 7.9; Monocytes # (A) 0.4 k/uL (0-1.0); Monocytes % (A) 5 %; Neutrophils # (A) 7.5 k/uL (1.3-7.7); Neutrophils % (A) 88 %; Platelet Count 178 k/uL (150-450); RBC 4.48 m/uL (4.30-5.90); RDW 17.4 % (11.5-15.5); WBC 8.6 k/uL (3.8-10.6)
--- NOTE | 2022-06-22 06:35 | ED ---
Abdominal Pain HPI - General Chief Complaint: Abdominal Pain Stated Complaint: A-FIB Time Seen by Provider: 06/22/22 06:22 Source: patient, EMS, RN notes reviewed, old records reviewed Mode of arrival: EMS Limitations: no limitations - History of Present Illness Initial Comments: 77-year-old male presents to the emergency room with complaints of left upper quadrant abdominal pain that started at 1:00am when he got up to use the bathroom. Patient states it felt like a burning sensation in his abdomen. He does have a history of GERD and has been taking his medications. He was just discharged from the hospital 2 days ago for paroxysmal atrial fibrillation. He is on Eliquis. He denies any fevers, no nausea vomiting or diarrhea. He has a right AKA. History of non-Hodgkin's lymphoma, diabetes, hypertension, and complete heart block with pacemaker. Patient states he lives alone. MD Complaint: abdominal pain -: hour(s) (5) Location: LUQ Radiation: none Severity scale (1-10): 5 Consistency: intermittent Associated Symptoms: denies other symptoms - Related Data Home Medications Medication Instructions Recorded Confirmed Multivit-Min/FA/Lycopen/Lutein 1 tab PO DAILY 12/14/21 06/22/22 [Centrum Silver Tablet] Docusate [Colace] 100 mg PO BID 06/20/22 06/22/22 Glucosam/Chond/Hyalu/Cf Borate 2 tab PO DAILY 06/20/22 06/22/22 [Move Free Joint Health Tablet] Prochlorperazine [Compazine] 10 mg PO Q6H PRN 06/20/22 06/22/22 allopurinoL [Zyloprim] 300 mg PO BID 06/20/22 06/22/22 icosapent ethyL [Icosapent Ethyl] 2 gm PO BID-W/MEALS 06/20/22 06/22/22 predniSONE 100 mg PO DIRECTED 06/20/22 06/22/22 Previous Rx's Medication Instructions Recorded Apixaban [Eliquis] 5 mg PO BID #0 12/16/21 metFORMIN HCL [Glucophage] 500 mg PO BID #0 12/16/21 Pantoprazole [Protonix] 40 mg PO BID #60 tab 06/21/22 Allergies Allergy/AdvReac Type Severity Reaction Status Date / Time No Known Allergies Allergy Verified 06/22/22 10:16 Review of Systems ROS Statement: Those systems with pertinent positive or pertinent negative responses have been documented in the HPI. ROS Other: All systems not noted in ROS Statement are negative. Past Medical History Past Medical History: Atrial Fibrillation, Cancer, Diabetes Mellitus, Hyperlipidemia, Hypertension History of Any Multi-Drug Resistant Organisms: None Reported Past Surgical History: Cholecystectomy, Orthopedic Surgery, Pacemaker Additional Past Surgical History / Comment(s): right aka due to accident Past Anesthesia/Blood Transfusion Reactions: No Reported Reaction Additional Past Anesthesia/Blood Transfusion Reaction / Comment(s): na Type of Cardiac Device: Permanent Pacemaker Device Placement Date:: December 16, 2021 Past Psychological History: No Psychological Hx Reported Past Alcohol Use History: None Reported Past Drug Use History: None Reported - Past Family History Father Family Medical History: Cancer Additional Family Medical History / Comment(s): Pt states father was heavy smoker and developed throat cancer Mother Family Medical History: Hypertension Additional Family Medical History / Comment(s): Pt states mother was healthy and lived to General Exam Limitations: no limitations General appearance: alert, in no apparent distress Head exam: Present: atraumatic Eye exam: Absent: scleral icterus, conjunctival injection, periorbital swelling ENT exam: Present: mucous membranes dry Respiratory exam: Absent: respiratory distress, accessory muscle use Cardiovascular Exam: Present: tachycardia, irregular rhythm GI/Abdominal exam: Present: soft, tenderness (LUQ). Absent: distended, guarding, rebound, rigid Extremities exam: Present: normal capillary refill. Absent: tenderness, pedal edema Back exam: Absent: tenderness, CVA tenderness (R), CVA tenderness (L), rash noted Neurological exam: Present: alert, oriented X3 Psychiatric exam: Present: normal affect, normal mood Skin exam: Present: warm, dry, pallor. Absent: cyanosis, diaphoretic, petechiae Course Vital Signs 06/22/22 06/22/22 06/22/22 06:11 06:42 07:55 Temperature 97.8 F Pulse Rate 124 H 137 H 144 H Respiratory 20 20 Rate Blood Pressure 116/93 96/63 105/61 O2 Sat by Pulse 98 Oximetry 06/22/22 06/22/22 06/22/22 08:00 08:10 08:20 Temperature Pulse Rate 113 H 109 H 130 H Respiratory 22 20 22 Rate Blood Pressure 105/61 91/69 83/63 O2 Sat by Pulse Oximetry 06/22/22 06/22/22 06/22/22 08:30 08:40 08:50 Temperature Pulse Rate 121 H 116 H 108 H Respiratory 22 22 20 Rate Blood Pressure 83/63 100/83 121/86 O2 Sat by Pulse 97 97 95 Oximetry 06/22/22 06/22/22 06/22/22 09:00 09:10 09:33 Temperature Pulse Rate 101 H 77 73 Respiratory 20 22 Rate Blood Pressure 121/86 108/71 112/66 O2 Sat by Pulse 96 97 Oximetry - Reevaluation(s) Reevaluation #1: 06/22/22 07:14 food assembler shows atrial fibrillation with a rate of 154. Case discussed with Dr. Montgomery, Cardizem bolus and drip ordered. Patient denies chest pain or shortness of breath at this time. Time: 07:14 Medical Decision Making - Medical Decision Making Patient presents with epigastric and left upper quadrant pain since 1 AM. He denies any chest pain or difficulty in breathing. He does have a history of paroxysmal atrial fibrillation and is on Eliquis. He was just discharged from the hospital 2 days ago. Patient was found to be in A. fib with RVR with a rate of 154. Cardizem drip was titrated to 7.5 to control ventricular rate. Case discussed with Dr. Montgomery, patient will be admitted to the hospital with A. fib with RVR. I did speak with Dr Segura who states patient does have a history of non-Hodgkin's lymphoma which may be the cause of his abdominal discomfort. He is agreeable to admission and recommended cardiology be placed on consult. - Lab Data Result diagrams: 06/22/22 06:19 06/22/22 06:19 Lab Results 06/22/22 06/22/22 06/22/22 Range/Units 06:19 06:19 06:19 WBC 8.6 (3.8-10.6) k/uL RBC 4.48 (4.30-5.90) m/uL Hgb 12.2 L (13.0-17.5) gm/dL Hct 37.5 L (39.0-53.0) % MCV 83.7 (80.0-100.0) fL MCH 27.1 (25.0-35.0) pg MCHC 32.4 (31.0-37.0) g/dL RDW 17.4 H (11.5-15.5) % Plt Count 178 (150-450) k/uL MPV 7.9 Neutrophils % 88 % Lymphocytes % 6 % Monocytes % 5 % Eosinophils % 1 % Basophils % 0 % Neutrophils # 7.5 (1.3-7.7) k/uL Lymphocytes # 0.5 L (1.0-4.8) k/uL Monocytes # 0.4 (0-1.0) k/uL Eosinophils # 0.1 (0-0.7) k/uL Basophils # 0.0 (0-0.2) k/uL Hypochromasia Slight Anisocytosis Slight PT 10.3 (9.0-12.0) sec INR 0.9 (<1.2) APTT 23.4 (22.0-30.0) sec Sodium 129 L (137-145) mmol/L Potassium 4.1 (3.5-5.1) mmol/L Chloride 100 (98-107) mmol/L Carbon Dioxide 18 L (22-30) mmol/L Anion Gap 11 mmol/L BUN 25 H (9-20) mg/dL Creatinine 0.81 (0.66-1.25) mg/dL Est GFR (CKD-EPI)AfAm >90 (>60 ml/min/1.73 sqM) Est GFR (CKD-EPI)NonAf 85 (>60 ml/min/1.73 sqM) Glucose 291 H (74-99) mg/dL Plasma Lactic Acid Alexys (0.7-2.0) mmol/L Calcium 8.5 (8.4-10.2) mg/dL Total Bilirubin 0.5 (0.2-1.3) mg/dL AST 30 (17-59) U/L ALT 40 (4-49) U/L Alkaline Phosphatase 50 (38-126) U/L Total Protein 5.5 L (6.3-8.2) g/dL Albumin 3.5 (3.5-5.0) g/dL Amylase 63 (30-110) U/L Lipase 465 H (23-300) U/L 06/22/22 Range/Units 06:19 WBC (3.8-10.6) k/uL RBC (4.30-5.90) m/uL Hgb (13.0-17.5) gm/dL Hct (39.0-53.0) % MCV (80.0-100.0) fL MCH (25.0-35.0) pg MCHC (31.0-37.0) g/dL RDW (11.5-15.5) % Plt Count (150-450) k/uL MPV Neutrophils % % Lymphocytes % % Monocytes % % Eosinophils % % Basophils % % Neutrophils # (1.3-7.7) k/uL Lymphocytes # (1.0-4.8) k/uL Monocytes # (0-1.0) k/uL Eosinophils # (0-0.7) k/uL Basophils # (0-0.2) k/uL Hypochromasia Anisocytosis PT (9.0-12.0) sec INR (<1.2) APTT (22.0-30.0) sec Sodium (137-145) mmol/L Potassium (3.5-5.1) mmol/L Chloride (98-107) mmol/L Carbon Dioxide (22-30) mmol/L Anion Gap mmol/L BUN (9-20) mg/dL Creatinine (0.66-1.25) mg/dL Est GFR (CKD-EPI)AfAm (>60 ml/min/1.73 sqM) Est GFR (CKD-EPI)NonAf (>60 ml/min/1.73 sqM) Glucose (74-99) mg/dL Plasma Lactic Acid Alexys 1.4 (0.7-2.0) mmol/L Calcium (8.4-10.2) mg/dL Total Bilirubin (0.2-1.3) mg/dL AST (17-59) U/L ALT (4-49) U/L Alkaline Phosphatase (38-126) U/L Total Protein (6.3-8.2) g/dL Albumin (3.5-5.0) g/dL Amylase (30-110) U/L Lipase (23-300) U/L - EKG Data Rate: tachycardia (Atrial fibrillation ventricular rate of 128, QRS 0.154, QTC 0.401) Disposition Clinical Impression: Atrial fibrillation with RVR Disposition: ADMITTED IP TO THIS [facility] Decision Date: 06/22/22 Decision Time: 09:40
[2022-06-22 06:43] LABS: INR 0.9 (<1.2); Partial Thromboplastin Time 23.4 sec (22.0-30.0); Prothrombin Time 10.3 sec (9.0-12.0)
[2022-06-22 06:51] LABS: ALT 40 U/L (4-49); AST 30 U/L (17-59); African American GFR (CKD) >90 (>60 ml/min/1.73 sqM); Albumin 3.5 g/dL (3.5-5.0); Alkaline Phosphatase 50 U/L (38-126); Amylase 63 U/L (30-110); Anion Gap 11 mmol/L; Blood Urea Nitrogen 25 mg/dL (9-20); Calcium 8.5 mg/dL (8.4-10.2); Carbon Dioxide 18 mmol/L (22-30); Chloride 100 mmol/L (98-107); Glucose 291 mg/dL (74-99); Lipase 465 U/L (23-300); Non-African American GFR(CKD) 85 (>60 ml/min/1.73 sqM); Potassium 4.1 mmol/L (3.5-5.1); Sodium 129 mmol/L (137-145); Total Bilirubin 0.5 mg/dL (0.2-1.3); Total Protein 5.5 g/dL (6.3-8.2)
[2022-06-22] MEDS ORDERED: DILTIAZEM DRIP BOLUS FROM BAG 1 MG SOLN IV ONE (07:13)
[2022-06-22] MEDS ORDERED: DILTIAZEM 125 MG in SODIUM CHLORIDE 0.9% 100 ML IV SCH (07:15)
[2022-06-22] MEDS ORDERED: NALOXONE 0.4 MG/ML 1 ML VIAL IV PRN (09:49)
[2022-06-22] MEDS ORDERED: PROCHLORPERAZINE 10 MG TAB PO PRN (09:51)
--- NOTE | 2022-06-22 12:13 | P.CRDCN ---
History of Present Illness Consult date: 06/22/22 History of present illness: Patient is a 77-year-old gentleman with a known history of nonischemic cardiomyopathy, proximal atrial fibrillation, complete heart block status post pacemaker in November 2021, hypertension, diabetes, non-Hodgkin's lymphoma starting chemotherapy right AKA presented to the ER with complaints of left upper abdominal pain. Today his EKG showed atrial fibrillation with RVR and a left bundle-branch block. Patient was recently seen in the ER 2 days ago for the same complaint, at that time his EKG showed sinus rhythm with a left bundle- branch block. Patient was started on a Cardizem drip. He is on Eliquis at home. Patient's troponin is elevated at 0.098, will continue to follow serial troponins. He had an echocardiogram in November of this year which showed a mildly decreased LV function with an ejection fraction of 45-50%. Will obtain e chocardiogram. Vital signs are stable 112/66 heart rate is stable at 73. Will discontinue Cardizem drip and start patient on oral Toprol 25 mg daily. Continue with eliquis for anticoagulation. Review of Systems REVIEW OF SYSTEMS At the time of my exam: CONSTITUTIONAL: Denies fever or chills. EYES: Negative for vision changes ENT: Negative for hearing loss CARDIOVASCULAR: Denies chest pain, shortness of breath, diaphoresis, orthopnea, PND or palpitations. VASCULAR: Denies edema RESPIRATORY: Denies cough. GASTROINTESTINAL: Denies abdominal pain, diarrhea, constipation, nausea or vomiting. MUSCULOSKELETAL: Denies myalgias. NEUROLOGIC: Denies numbness, tingling, headache or weakness. ENDOCRINE: Denies fatigue, weight change, polydipsia or polyurina. GENITOURINARY: Denies burning, hematuria or urgency with micturation. HEMATOLOGIC: Denies history of anemia or bleeding. DERMATOLOGY: Denies rash or skin sores PSYCH: Negative for depression or hallucinations. Past Medical History Past Medical History: Atrial Fibrillation, Cancer, Diabetes Mellitus, Hyperlipidemia, Hypertension History of Any Multi-Drug Resistant Organisms: None Reported Past Surgical History: Cholecystectomy, Orthopedic Surgery, Pacemaker Additional Past Surgical History / Comment(s): right aka due to accident Past Anesthesia/Blood Transfusion Reactions: No Reported Reaction Additional Past Anesthesia/Blood Transfusion Reaction / Comment(s): na Type of Cardiac Device: Permanent Pacemaker Device Placement Date:: December 16, 2021 Past Psychological History: No Psychological Hx Reported Past Alcohol Use History: None Reported Past Drug Use History: None Reported - Past Family History Father Family Medical History: Cancer Additional Family Medical History / Comment(s): Pt states father was heavy smoker and developed throat cancer Mother Family Medical History: Hypertension Additional Family Medical History / Comment(s): Pt states mother was healthy and lived to Medications and Allergies Home Medications Medication Instructions Recorded Confirmed Type Multivit-Min/FA/Lycopen/Lutein 1 tab PO DAILY 12/14/21 06/22/22 History [Centrum Silver Tablet] Apixaban [Eliquis] 5 mg PO BID #0 12/16/21 06/22/22 Rx metFORMIN HCL [Glucophage] 500 mg PO BID #0 12/16/21 06/22/22 Rx Docusate [Colace] 100 mg PO BID 06/20/22 06/22/22 History Glucosam/Chond/Hyalu/Cf Borate 2 tab PO DAILY 06/20/22 06/22/22 History [Move Free Joint Health Tablet] Prochlorperazine [Compazine] 10 mg PO Q6H PRN 06/20/22 06/22/22 History allopurinoL [Zyloprim] 300 mg PO BID 06/20/22 06/22/22 History icosapent ethyL [Icosapent Ethyl] 2 gm PO BID-W/MEALS 06/20/22 06/22/22 History predniSONE 100 mg PO DIRECTED 06/20/22 06/22/22 History Pantoprazole [Protonix] 40 mg PO BID #60 tab 06/21/22 06/22/22 Rx Allergies Allergy/AdvReac Type Severity Reaction Status Date / Time No Known Allergies Allergy Verified 06/22/22 10:16 Physical Exam Vitals: Vital Signs Temp Pulse Resp BP Pulse Ox 06/22/22 11:44 77 18 126/71 97 06/22/22 09:33 73 112/66 06/22/22 09:10 77 22 108/71 97 06/22/22 09:00 101 H 20 121/86 96 06/22/22 08:50 108 H 20 121/86 95 06/22/22 08:40 116 H 22 100/83 97 06/22/22 08:30 121 H 22 83/63 97 06/22/22 08:20 130 H 22 83/63 06/22/22 08:10 109 H 20 91/69 06/22/22 08:00 113 H 22 105/61 06/22/22 07:55 144 H 20 105/61 06/22/22 06:42 137 H 96/63 06/22/22 06:11 97.8 F 124 H 20 116/93 98 Intake and Output 06/21/22 06/22/22 06/22/22 22:59 06:59 14:59 Intake Total 4.917 Balance 4.917 Intake: Intake, IV Titration 4.917 Amount Diltiazem 125 mg In 4.917 Sodium Chloride 0.9% 100 ml @ 5 MG/HR 5 mls/hr IV .Q24H [facility] Rx#:[id number] Other: Weight 117.934 kg General: The patient is awake and alert, in no distress, and does not appear acutely ill. Skin: Skin is warm and dry and no rashes or lesions are noted. Eye: Pupils are equal, round and reactive to light, extra-ocular movements are intact; there is normal conjunctiva bilaterally. Ears, nose, mouth and throat: There are moist mucous membranes and no oral lesions. Neck: The neck is supple, there is no tenderness or JVD. Cardiovascular: There is irregular rate and rhythm. No murmur, rub or gallop is appreciated. Respiratory: Lungs are clear to auscultation, respirations are non-labored, breath sounds are equal. Gastrointestinal: Soft, non-distended, non-tender abdomen without masses or organomegaly noted. There is no rebound or guarding present. Bowel sounds are unremarkable. Back: There is no tenderness to palpation in the midline. There is no obvious deformity. Musculoskeletal: Normal ROM, no tenderness, There is no pedal edema. There is no calf tenderness or swelling. Extremities: Mild bilateral pitting edema Vascular: Femoral pulse is normal. Posterior tibial pulses are normal .Dorsalis pedis is palpable. Neurological: CN II-XII intact. There are no obvious motor or sensory deficits. Speech is normal. Psychiatric: Cooperative, appropriate mood & affect, normal judgment Results 06/22/22 06:19 06/22/22 06:19 Cardiac Enzymes 06/22/22 06/22/22 Range/Units 06:19 10:46 AST 30 (17-59) U/L Troponin I 0.098 H* (0.000-0.034) ng/mL Coagulation 06/22/22 Range/Units 06:19 PT 10.3 (9.0-12.0) sec APTT 23.4 (22.0-30.0) sec CBC 06/22/22 Range/Units 06:19 WBC 8.6 (3.8-10.6) k/uL RBC 4.48 (4.30-5.90) m/uL Hgb 12.2 L (13.0-17.5) gm/dL Hct 37.5 L (39.0-53.0) % Plt Count 178 (150-450) k/uL Comprehensive Metabolic Panel 06/22/22 Range/Units 06:19 Sodium 129 L (137-145) mmol/L Potassium 4.1 (3.5-5.1) mmol/L Chloride 100 (98-107) mmol/L Carbon Dioxide 18 L (22-30) mmol/L BUN 25 H (9-20) mg/dL Creatinine 0.81 (0.66-1.25) mg/dL Glucose 291 H (74-99) mg/dL Calcium 8.5 (8.4-10.2) mg/dL AST 30 (17-59) U/L ALT 40 (4-49) U/L Alkaline Phosphatase 50 (38-126) U/L Total Protein 5.5 L (6.3-8.2) g/dL Albumin 3.5 (3.5-5.0) g/dL Current Medications Generic Name Dose Route Start Last Admin Trade Name Freq PRN Reason Stop Dose Admin Allopurinol 300 mg 06/22/22 21:00 Allopurinol 300 Mg Tab PO BID [facility] Apixaban 5 mg 06/22/22 21:00 Apixaban 5 Mg Tab PO BID [facility] Protocol Docusate Sodium 100 mg 06/22/22 21:00 Docusate 100 Mg Cap PO BID [facility] Diltiazem HCl 125 mg/ Sodium 125 mls @ 5 mls/hr 06/22/22 07:15 06/22/22 08:50 Chloride IV 7.5 mg/hr .Q24H MAX 7.5 mls/hr Infusion 5 MG/HR Metformin HCl 500 mg 06/22/22 17:30 Metformin 500 Mg Tab PO BID-W/MEALS MAX Naloxone HCl 0.2 mg 06/22/22 09:49 Naloxone 0.4 Mg/Ml 1 Ml Vial IV Q2M PRN Opioid Reversal Pantoprazole Sodium 40 mg 06/22/22 17:30 Pantoprazole 40 Mg Tablet PO AC-BID [facility] Prochlorperazine Maleate 10 mg 06/22/22 09:51 Prochlorperazine 10 Mg Tab PO Q6H PRN Nausea And Vomiting Intake and Output 06/21/22 06/22/22 06/22/22 22:59 06:59 14:59 Intake Total 4.917 Balance 4.917 Intake: Intake, IV Titration 4.917 Amount Diltiazem 125 mg In 4.917 Sodium Chloride 0.9% 100 ml @ 5 MG/HR 5 mls/hr IV .Q24H [facility] Rx#:[id number] Other: Weight 117.934 kg 06/22/22 06:19 06/22/22 06:19 Assessment and Plan Assessment: Proximal Atrial fibrillation with RVR Complete heart block status post pacemaker Elevated troponin Nonischemic cardiomyopathy Non-Hodgkin's lymphoma Plan: Discontinue Cardizem drip Start Toprol-XL 25 mg daily Continue with Eliquis for anticoagulation Will obtain an echocardiogram Continue with all current cardiac medications Continue telemetry monitoring Further recommendations based on clinical course The above impression and plan of care have been discussed and directed by the signing physician. Elisa Oseguera, nurse practitioner, acting as scribe for signing physician.
[2022-06-22 12:18] LABS: Appearance,Urine Clear (Clear); Bilirubin,Urine Negative (Negative); Blood,Urine Negative (Negative); Color,Urine Yellow; Glucose,Urine (UA) 4+ (Negative); Ketones,Urine 1+ (Negative); Leukocyte Esterase,Urine Negative (Negative); Nitrite,Urine Negative (Negative); PH, Urine 5.5 (5.0-8.0); Protein,Urine Trace (Negative); Specific Gravity,Urine 1.028 (1.001-1.035); Urobilinogen,Urine <2.0 mg/dL (<2.0)
[2022-06-22] MEDS: METOPROLOL SUCCINATE (ER) 25 MG TAB.ER.24H PO SCH (12:22)
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
[2022-06-22] MEDS: metFORMIN 500 MG TAB PO SCH (17:52)
[2022-06-22] MEDS: PANTOPRAZOLE 40 MG TABLET PO SCH (17:52)
[2022-06-22] MEDS: APIXABAN 5 MG TAB PO SCH (20:03)
[2022-06-22] MEDS: allopurinoL 300 MG TAB PO SCH (20:03)
[2022-06-22] MEDS: DOCUSATE 100 MG CAP PO SCH (20:03)
[2022-06-22 20:12] LABS: Glucose,Whole Blood 312 mg/dL (70-110)
[2022-06-23] MEDS ORDERED: DEXTROSE 50% SYRINGE 50 ML IVP PRN ×2 (00:39)
[2022-06-23] MEDS: PANTOPRAZOLE 40 MG TABLET PO SCH ×2 (06:32→17:59)
[2022-06-23] MEDS: INSULIN ASPART (NovoLOG) 100 UNIT/ML VIAL SQ SCH ×4 (06:32→21:03)
[2022-06-23] MEDS: metFORMIN 500 MG TAB PO SCH ×2 (06:32→17:59)
[2022-06-23 06:33] LABS: Glucose,Whole Blood 275 mg/dL (70-110)
[2022-06-23] MEDS: APIXABAN 5 MG TAB PO SCH ×2 (09:02→21:04)
[2022-06-23] MEDS: allopurinoL 300 MG TAB PO SCH ×2 (09:02→21:04)
[2022-06-23] MEDS: DOCUSATE 100 MG CAP PO SCH ×2 (09:03→21:04)
[2022-06-23] MEDS: METOPROLOL SUCCINATE (ER) 25 MG TAB.ER.24H PO SCH (09:03)
[2022-06-23 11:41] LABS: Glucose,Whole Blood 177 mg/dL (70-110)
--- NOTE | 2022-06-23 12:30 | P.PN ---
Subjective This is a 77-year-old male with a past medical history significant for complete heart block s/p dual chamber pacemaker implantation in 11/2021, right xyeso-imz-aqaz amputation, paroxysmal atrial fibrillation on Eliquis, hypertension, hyperlipidemia, and type 2 diabetes. Patient follows in the office with Dr. Hernandez. We have been asked to see in consultation for A fib with RVR. Patient presented to the ER with complaints of abdominal pain. 06/23/2022 Patient seen and examined at bedside, no acute distress. He states he is feeling much better. Denies any chest pain, shortness of breath, palpitations. His abdominal pain is improved. Blood pressure 137/81, heart rate 75. Patient is maintaining sinus rhythm with heart rates in the 70s80s. He's currently maintained on Eliquis 5 mg twice a day, metoprolol succinate 25 mg daily. Echo pending GENERAL: Well-appearing, well-nourished and in no acute distress. NECK: Supple without JVD or thyromegaly. LUNGS: Breath sounds clear to auscultation bilaterally. Respiration equal and unlabored. No wheezes, rales or rhonchi. HEART: Regular rate and rhythm without murmurs, rubs or gallops. S1 and S2 heard. EXTREMITIES: Normal range of motion, no edema. No clubbing or cyanosis. Peripheral pulses intact. ASSESSMENT Paroxysmal atrial fibrillation with RVR on eliquis Complete heart block s/p dual chamber pacemaker implantation in 11/2021 History of right jpqir-naw-ebcz amputation Hypertension Hyperlipidemia Type 2 diabetes PLAN From cardiology perspective, patient is stable. Recommend continuing anticoagulation and metoprolol. Follow up outpatient with Dr. Hernandez. Nurse Practitioner note has been reviewed, I agree with a documented findings and plan of care. Patient was seen and examined. Objective - Vital Signs Vital signs: Vital Signs Temp 97.8 F 06/22/22 06:11 Pulse 73 06/22/22 09:33 Resp 22 06/22/22 09:10 BP 112/66 06/22/22 09:33 Pulse Ox 97 06/22/22 09:10 FiO2 Intake & Output 06/21/22 06/22/22 06/22/22 18:59 06:59 18:59 Intake Total 4.917 Balance 4.917 Weight 117.934 kg Intake: Intake, IV Titration 4.917 Amount Diltiazem 125 mg In 4.917 Sodium Chloride 0.9% 100 ml @ 5 MG/HR 5 mls/hr IV .Q24H [facility] Rx#:[id number] - Labs CBC & Chem 7: 06/22/22 06:19 06/22/22 06:19 Labs: Abnormal Lab Results - Last 24 Hours (Table) 06/22/22 06/22/22 Range/Units 06:19 06:19 Hgb 12.2 L (13.0-17.5) gm/dL Hct 37.5 L (39.0-53.0) % RDW 17.4 H (11.5-15.5) % Lymphocytes # 0.5 L (1.0-4.8) k/uL Sodium 129 L (137-145) mmol/L Carbon Dioxide 18 L (22-30) mmol/L BUN 25 H (9-20) mg/dL Glucose 291 H (74-99) mg/dL Total Protein 5.5 L (6.3-8.2) g/dL Lipase 465 H (23-300) U/L
--- NOTE | 2022-06-23 12:43 | P.PN ---
Subjective Progress Note Date: 06/23/22 HISTORY OF PRESENT ILLNESS This is a 77-year-old male patient with past medical history of paroxysmal atrial fibrillation on long-term anticoagulation with eliquis, hypertension, hyp erlipidemia, complete heart block status post permanent pacemaker, diabetes mellitus 2, right zaniz-uur-nypa amputation, non-Hodgkin's lymphoma treated at [facility] and recently diagnosed. Regarding lymphoma, patient is scheduled for a port to be placed on June 28 and plans to move treatment from [facility] to [place]. Patient presented to [facility] emergency center by EMS on 06/20 due to abdominal pain radiating to his chest which started after eating in the morning yesterday. Patient complains of intermittent nausea, no vomiting. Patient has had no significant bowel movement for several days. No shortness of breath. By the next morning, patient had no abdominal pain his symptoms had completely resolved and he was discharged home. Patient states that after he was seen in the morning, he he had 45 bowel movements before he left the hospital. When he got home he took a shower and laid down and his abdominal pain was all gone. He now states that he is having some pain in the left lower quadrant. He states it felt like a burning sensation. Patient return to [facility] emergency center by EMS and was found to be in A. fib with RVR heart rate in the 120s to 140s, afebrile, blood pressure 116/93, pulse ox 90% on room air. EKG was A. fib. WBC 8.6, hemoglobin 12.2 and platelet count 178. Sodium 129, potassium 4.1, chloride 100, CO2 18, BUN 25, creatinine 0.81. Blood sugar 291. Liver function tests were normal. Albumin 3.5. Lipase 465. Lactic acid 1.4. Patient is seen today in the emergency center waiting for a bed on the cardiac stepdown unit. He has been seen by cardiology and Ching brewer transitioned to Toprol-XL. 06/23: Patient's heart rate is running in the 70s and 80s, afebrile, blood pressure 157/72, pulse ox 90% on room air. Patient denies having any chest pain, shortness of breath, palpitations. Patient denies having any abdominal pain. He states he expects to have a bowel movement shortly. Patient was started on Toprol-XL 25 mg daily and maintained on eliquis. Capillary blood glucose this morning was 275 and at at bedtime 312. Patient started on Levemir 18 units at bedtime. Echocardiogram has been completed by report is pending. Cardiology has cleared the patient for discharge but will plan to monitor overnight and discharged home on Sunday. REVIEW OF SYSTEMS Constitutional: No fever, no chills, no night sweats. No weight change. No weakness, fatigue or lethargy. No daytime sleepiness. EENT: No headache. No blurred vision or double vision, no loss of vision. No loss of Hearing, no ringing in the ears, no dizziness. No nasal drainage or c ongestion. No epistaxis. No sore throat. Lungs: No shortness of breath, cough, no sputum production. No wheezing. Cardiovascular: No chest pain, no lower extremity edema. Reports palpitations. No paroxysmal nocturnal dyspnea. No orthopnea. No lightheadedness or dizziness. No syncopal episodes. Abdominal: Denies abdominal pain. No nausea, vomiting. No diarrhea. No constipation. No bloody or tarry stools. No loss of appetite. Genitourinary: No dysuria, increased frequency, urgency. No urinary retention. Musculoskeletal: No myalgias. No muscle weakness, no gait dysfunction, no freq uent falls. No back pain. No neck pain. Integumentary: No wounds, no lesions. No rash or pruritus. No unusual bruising. No change in hair or nails. Neurologic: No aphasia. No facial droop. No change in mentation. No head injury. No headache. No paralysis. No paresthesia. Psychiatric: No depression is his anniversary of his 's . No anxiety. No mood swings. Endocrine: No abnormal blood sugars. No weight change. No excessive sweating or thirst. No cold intolerance. PHYSICAL EXAMINATION Gen: This is a 77-year-old male. Patient is resting in bed and appears to be comfortable and in no acute distress. HEENT: Head is atraumatic, normocephalic. Pupils equal, round. Sclerae is anicteric. NECK: Supple. No JVD. No lymphadenopathy. No thyromegaly. LUNGS: Clear to auscultation. No wheezes or rhonchi. No intercostal retractions. HEART: Irregular rate and rhythm. No murmur. ABDOMEN: Soft. Bowel sounds are present. No masses. No abdominal tenderness. EXTREMITIES: No pedal edema. No calf tenderness. Dorsalis pedis +2 left. Prosthesis at bedside. NEUROLOGICAL: Patient is awake, alert and oriented x3. Cranial nerves 2 through 12 are grossly intact. ASSESSMENT AND PLAN 1. A. fib with RVR. Cardiology consult appreciated. Cardizem drip transitioned to Toprol-XL 25 mg daily, continue eliquis 5 mg twice daily. 2. Left lower quadrant abdominal pain. Continue to monitor. 3. Recent diagnosis of non-Hodgkin's lymphoma. Patient to have port placed on June 28, chemotherapy is planned to start in [place]. 4. Paroxysmal atrial fibrillation. Continue patient on eliquis. 5. Hypertenion. Patient is off losartan. 6. Hyperlipidemia. Continue Icosapent 2 g oral twice daily. 7. Diabetes mellitus type 2. Continue patient on metformin 500 mg twice daily. 8. Right gxooo-spd-edjy amputation, stable. 9. Benign prostatic hypertrophy. 10. Generalized count. Continue allopurinol 300 mg twice daily. 11. Gastroesophageal reflux disease and GI prophylaxis. Continue Protonix 40 mg twice daily. 12. DVT prophylaxis. Continue eliquis. DISCHARGE PLAN Return home on Sunday. Impression and plan of care have been directed as dictated by the signing physician. Christin Mckeon nurse practitioner acting as scribe for signing physician. Objective - Vital Signs Vital signs: Vital Signs Temp 97.2 F L 06/23/22 07:35 Pulse 80 06/23/22 07:35 Resp 17 06/23/22 07:35 BP 157/72 06/23/22 07:35 Pulse Ox 98 06/23/22 07:35 FiO2 Intake & Output 06/22/22 06/23/22 06/23/22 18:59 06:59 18:59 Intake Total 4.917 118 Output Total 700 Balance 4.917 -700 118 Weight 117.934 kg Intake: Intake, IV Titration 4.917 Amount Diltiazem 125 mg In 4.917 Sodium Chloride 0.9% 100 ml @ 5 MG/HR 5 mls/hr IV .Q24H [facility] Rx#:[id number] Oral 118 Output: Urine 700 Other: Voiding Method Toilet # Voids 1 - Labs CBC & Chem 7: 06/22/22 06:19 06/22/22 06:19 Labs: Abnormal Lab Results - Last 24 Hours (Table) 06/22/22 06/22/22 06/22/22 Range/Units 10:46 11:46 20:10 POC Glucose (mg/dL) 312 H (70-110) mg/dL Troponin I 0.098 H* (0.000-0.034) ng/mL Urine Protein Trace H (Negative) Urine Glucose (UA) 4+ H (Negative) Urine Ketones 1+ H (Negative) 06/23/22 Range/Units 06:32 POC Glucose (mg/dL) 275 H (70-110) mg/dL Troponin I (0.000-0.034) ng/mL Urine Protein (Negative) Urine Glucose (UA) (Negative) Urine Ketones (Negative)
--- NOTE | 2022-06-23 13:01 | CA ---
Transthoracic Echo Report Name: Larry Watson Age: 77 Gender: M : 1945 Exam Date: 06/23/2022 08:19 Exam Location: [facility] Ht (in): 77 Wt (lb): 260 Ordering Physician: Elisa Oseguera Attending/Referring Phys: General Utility Machine Operator Allyson Obrien RDCS Procedure CPT: Indications: postive trop Cardiac Hx: Technical Quality: Fair Contrast 1: Lumason Total Dose (mL): 3 Contrast 2: Total Dose (mL): MEASUREMENTS (Male / Female) Normal Values DOPPLER TR Peak Velocity 247.5 cm/s TR Peak Gradient 24.5 mmHg Right Ventricular Systolic Press 29.5 mmHg FINDINGS Left Ventricle Liited echoLeft ventricular ejection fraction is estimated at 40-45 %. Right Ventricle Right ventricular systolic pressure within normal limits. Right Atrium Left Atrium Mitral Valve Aortic Valve Tricuspid Valve Pulmonic Valve Pericardium Normal pericardium. No pericardial effusion. Aorta CONCLUSIONS Impaired LV function was EF between 40-45% Previewed by: Dr. Landon Lo MD (Electronically Signed) Final Date: 23 June 2022 13:00
[2022-06-23 16:35] LABS: Glucose,Whole Blood 350 mg/dL (70-110)
[2022-06-23 19:44] LABS: Glucose,Whole Blood 251 mg/dL (70-110)
[2022-06-23] MEDS ORDERED: INSULIN DETEMIR (LEVEMIR) 100 UNIT/ML SYR SQ SCH (21:00)
[2022-06-24 06:03] LABS: Glucose,Whole Blood 171 mg/dL (70-110)
[2022-06-24 06:28] VITALS: TEMP 98.1
[2022-06-24] MEDS: metFORMIN 500 MG TAB PO SCH (06:55)
[2022-06-24] MEDS: PANTOPRAZOLE 40 MG TABLET PO SCH (06:55)
[2022-06-24] MEDS: INSULIN ASPART (NovoLOG) 100 UNIT/ML VIAL SQ SCH (06:55)
[2022-06-24] MEDS ORDERED: LACTULOSE 20 GM/30 ML CUP PO ONE (08:55)
[2022-06-24] MEDS ORDERED: LOSARTAN 25 MG TAB PO SCH (09:00)
[2022-06-24] MEDS: METOPROLOL SUCCINATE (ER) 25 MG TAB.ER.24H PO SCH (09:47)
[2022-06-24] MEDS: allopurinoL 300 MG TAB PO SCH (09:48)
[2022-06-24] MEDS: DOCUSATE 100 MG CAP PO SCH (09:48)
[2022-06-24] MEDS: APIXABAN 5 MG TAB PO SCH (09:48)
[2022-06-24 09:50] VITALS: BP 129/63; PULSE 69; RESP 16
--- NOTE | 2022-06-24 10:17 | P.DS ---
Providers Date of admission: 06/22/22 09:59 Expected date of discharge: 06/24/22 Attending physician: Sophie Segura Consults: 06/22/22 09:49 Consult Physician Routine Consulting Provider: Landon Lo Consult Reason/Comments: A. fib with RVR Do you want consulting provider notified?: Yes, Notify in am Primary care physician: Sophie Segura [facility] Course: HISTORY OF PRESENT ILLNESS This is a 77-year-old male patient with past medical history of paroxysmal atrial fibrillation on long-term anticoagulation with eliquis, hypertension, hyperlipidemia, complete heart block status post permanent pacemaker, diabetes mellitus 2, right pxpry-fio-swuc amputation, non-Hodgkin's lymphoma treated at [facility] and recently diagnosed. Regarding lymphoma, patient is scheduled for a port to be placed on June 28 and plans to move treatment from [facility] to [place]. Patient presented to [facility] emergency center by EMS on 06/20 due to abdominal pain radiating to his chest which started after eating in the morning yesterday. Patient complains of intermittent nausea, no vomiting. Patient has had no significant bowel movement for several days. No shortness of breath. By the next morning, patient had no abdominal pain his symptoms had completely resolved and he was discharged home. Patient states that after he was seen in the morning, he he had 45 bowel movements before he left the hospital. When he got home he took a shower and laid down and his abdominal pain was all gone. He now states that he is having some pain in the left lower quadrant. He states it felt like a burning sensation. Patient return to [facility] emergency center by EMS and was found to be in A. fib with RVR heart rate in the 120s to 140s, afebrile, blood pressure 116/93, pulse ox 90% on room air. EKG was A. fib. WBC 8.6, hemoglobin 12.2 and platelet count 178. Sodium 129, potassium 4.1, chloride 100, CO2 18, BUN 25, creatinine 0.81. Blood sugar 291. Liver function tests were normal. Albumin 3.5. Lipase 465. Lactic acid 1.4. Patient is seen today in the emergency center waiting for a bed on the cardiac stepdown unit. He has been seen by cardiology and Ching brewer transitioned to Toprol-XL. 06/23: Patient's heart rate is running in the 70s and 80s, afebrile, blood pressure 157/72, pulse ox 90% on room air. Patient denies having any chest pain, shortness of breath, palpitations. Patient denies having any abdominal pain. He states he expects to have a bowel movement shortly. Patient was started on Toprol-XL 25 mg daily and maintained on eliquis. Capillary blood glucose this morning was 275 and at at bedtime 312. Patient started on Levemir 18 units at bedtime. Echocardiogram reveals DISCHARGE DIAGNOSES 1. A. fib with RVR. 2. Left lower quadrant abdominal pain, resolved. 3. Recent diagnosis of non-Hodgkin's lymphoma. 4. Paroxysmal atrial fibrillation. 5. Hypertenion. 6. Hyperlipidemia. 7. Diabetes mellitus type 2. 8. Right puewb-guu-tyes amputation, stable. 9. Benign prostatic hypertrophy. 10. Generalized count. 11. Gastroesophageal reflux disease. 12. Mild LVF impairment EF 45 % DISCHARGE PLAN Return home. Impression and plan of care have been directed as dictated by the signing physician. Christin Mckeon nurse practitioner acting as scribe for signing physician. Patient Condition at Discharge: Serious Plan - Discharge Summary New Discharge Prescriptions: No Action metFORMIN HCL [Glucophage] 500 mg PO BID #0 Apixaban [Eliquis] 5 mg PO BID #0 allopurinoL [Zyloprim] 300 mg PO BID Docusate [Colace] 100 mg PO BID Glucosam/Chond/Hyalu/Cf Borate [Move Free Joint Health Tablet] 2 tab PO DAILY Prochlorperazine [Compazine] 10 mg PO Q6H PRN PRN Reason: Nausea And Vomiting predniSONE 100 mg PO DIRECTED Multivit-Min/FA/Lycopen/Lutein [Centrum Silver Tablet] 1 tab PO DAILY icosapent ethyL [Icosapent Ethyl] 2 gm PO BID-W/MEALS Pantoprazole [Protonix] 40 mg PO BID #60 tab Discharge Medication List Multivit-Min/FA/Lycopen/Lutein [Centrum Silver Tablet] 1 tab PO DAILY 12/14/21 [History] Apixaban [Eliquis] 5 mg PO BID #0 12/16/21 [Rx] metFORMIN HCL [Glucophage] 500 mg PO BID #0 12/16/21 [Rx] Docusate [Colace] 100 mg PO BID 06/20/22 [History] Glucosam/Chond/Hyalu/Cf Borate [Move Free Joint Health Tablet] 2 tab PO DAILY 06/20/22 [History] Prochlorperazine [Compazine] 10 mg PO Q6H PRN 06/20/22 [History] allopurinoL [Zyloprim] 300 mg PO BID 06/20/22 [History] icosapent ethyL [Icosapent Ethyl] 2 gm PO BID-W/MEALS 06/20/22 [History] predniSONE 100 mg PO DIRECTED 06/20/22 [History] Pantoprazole [Protonix] 40 mg PO BID #60 tab 06/21/22 [Rx] Follow up Appointment(s)/Referral(s): Sophie Segura MD [Primary Care Provider] - 1-2 days Galdino Hernandez MD [STAFF PHYSICIAN] - 2 Weeks
--- NOTE | 2022-06-24 11:54 | P.PN ---
Subjective Progress Note Date: 06/24/22 Patient is examined today resting comfortably in bed in no signs of acute distress. He continues to deny increased shortness of breath or chest pain. Patient underwent a limited 2-D echocardiogram which showed a mildly decreased LV function with an ejection fraction of 40-45%. He remains in sinus rhyth m/atrial paced with heart rate in the 70s. The pressure stable 132/72. He will be started on lisinopril. Patient will be discharged home today. Objective - Vital Signs Vital signs: Vital Signs Temp 98.1 F 06/24/22 04:00 Pulse 89 06/24/22 04:00 Resp 19 06/24/22 04:00 BP 132/72 06/24/22 04:00 Pulse Ox 98 06/24/22 04:00 FiO2 Intake & Output 06/23/22 06/24/22 06/24/22 18:59 06:59 18:59 Intake Total 354 Balance 354 Intake: Oral 354 Other: Voiding Method Toilet # Voids 1 # Bowel Movements 1 - Exam PHYSICAL EXAM: VITAL SIGNS: Reviewed. GENERAL: Well-developed in no acute distress. HEENT: Head is normocephalic. Pupils are equal, round. Sclerae anicteric. Mucous membranes of the mouth are moist. NECK: Supple. No JVD or thyromegaly RESPIRATORY: Respirations even and unlabored. Lungs diminished to auscultation bilaterally. CARDIO: Regular rate and rhythm. S1 and S2 heard. No murmur or gallops. EXTREMITIES: Normal range of motion. No clubbing or cyanosis. Peripheral pulses intact. Negative for bilateral lower extremity edema NEURO: Orientated to person, time, mood is appropriate - Labs CBC & Chem 7: 06/22/22 06:19 06/22/22 06:19 Labs: Abnormal Lab Results - Last 24 Hours (Table) 06/23/22 06/23/22 06/23/22 Range/Units 11:39 16:32 19:43 POC Glucose (mg/dL) 177 H 350 H 251 H (70-110) mg/dL 06/24/22 Range/Units 06:02 POC Glucose (mg/dL) 171 H (70-110) mg/dL Assessment and Plan Assessment: Proximal Atrial fibrillation with RVR Complete heart block status post pacemaker Nonischemic cardiomyopathy Non-Hodgkin's lymphoma Plan: Continue with Eliquis for anticoagulation echocardiogram obtained and reviewed Continue with all current cardiac medications Patient will be discharged home today The above impression and plan of care have been discussed and directed by the signing physician. Elisa Oseguera, nurse practitioner, acting as scribe for signing physician.
[2022-06-24 12:02] LABS: Anisocytosis Slight; Basophils % (A) 0 %; Eosinophils # (A) 0.1 k/uL (0-0.7); Eosinophils % (A) 1 %; HCT 34.4 % (39.0-53.0); Hypochromasia Moderate; Lymphocytes # (A) 0.7 k/uL (1.0-4.8); Lymphocytes % (A) 10 %; MCH 26.9 pg (25.0-35.0); Mean Platelet Volume 7.9; Monocytes # (A) 0.4 k/uL (0-1.0); Monocytes % (A) 5 %; Neutrophils # (A) 6.1 k/uL (1.3-7.7); Neutrophils % (A) 83 %; Platelet Count 154 k/uL (150-450); RBC 4.09 m/uL (4.30-5.90); RDW 17.2 % (11.5-15.5); WBC 7.3 k/uL (3.8-10.6)
[2022-06-24 12:10] LABS: AST 25 U/L (17-59); African American GFR (CKD) >90 (>60 ml/min/1.73 sqM); Albumin 3.3 g/dL (3.5-5.0); Anion Gap 8 mmol/L; Blood Urea Nitrogen 15 mg/dL (9-20); Calcium 8.4 mg/dL (8.4-10.2); Carbon Dioxide 24 mmol/L (22-30); Chloride 104 mmol/L (98-107); Glucose 142 mg/dL (74-99); Non-African American GFR(CKD) >90 (>60 ml/min/1.73 sqM); Potassium 4.2 mmol/L (3.5-5.1); Sodium 136 mmol/L (137-145); Total Bilirubin 0.6 mg/dL (0.2-1.3); Total Protein 5.4 g/dL (6.3-8.2)
[2022-06-24 12:11] LABS: ALT 26 U/L (4-49); Alkaline Phosphatase 49 U/L (38-126)
[2022-06-24] MEDS ORDERED: MIDODRINE 5 MG TAB PO SCH (12:30)
[2022-06-25] MEDS ORDERED: DAPAGLIFLOZIN PROPANEDIOL 5 MG TABLET PO SCH (09:00)
== END 2022-06-24 12:23 | disposition home or self-care (01) | DRG 309 ==
LOC: EC 05:47 → 3SCARD 09:59 → UNDODISIN 16:37
PROVIDERS: ADMIT Internal Medicine; ATTEND Internal Medicine
DX: I48.0 Paroxysmal atrial fibrillation (principal); C85.90 Non-Hodgkin lymphoma, unspecified, unspecified site; I42.8 Other cardiomyopathies; I44.2 Atrioventricular block, complete; I44.7 Left bundle-branch block, unspecified; K21.9 Gastro-esophageal reflux disease without esophagitis; E11.9 Type 2 diabetes mellitus without complications; E78.5 Hyperlipidemia, unspecified; R77.8 Other specified abnormalities of plasma proteins; I10 Essential (primary) hypertension; N40.0 Benign prostatic hyperplasia without lower urinary tract symptoms; Z63.4 Disappearance and death of family member; Z79.01 Long term (current) use of anticoagulants; Z79.84 Long term (current) use of oral hypoglycemic drugs; Z79.899 Other long term (current) drug therapy; Z80.8 Family history of malignant neoplasm of other organs or systems; Z82.3 Family history of stroke; Z82.49 Family history of ischemic heart disease and other diseases of the circulatory system; Z89.611 Acquired absence of right leg above knee; Z95.0 Presence of cardiac pacemaker; Z60.2 Problems related to living alone
CPT/HCPCS: 36415; 80053; 81003; 82150; 83605; 83690; 84484; 85025; 85610; 85730; 93005; 93308; 96361; 96365; 96366; 99285

== ENCOUNTER 2022-07-02 13:59 | Emergency (ER) | payer MEDICARE, OTHER ==
[2022-07-02 14:10] VITALS: RESP 18; TEMP 98.6
--- NOTE | 2022-07-02 14:15 | ED ---
General Adult HPI - General Chief complaint: Recheck/Abnormal Lab/Rx Stated complaint: Hyperglycemia Time Seen by Provider: 07/02/22 14:03 Source: patient, EMS Mode of arrival: EMS Limitations: no limitations - History of Present Illness Initial comments: Patient is a 77-year-old male who presents to the emergency room via EMS with complaints of generalized unwell feeling along with continued GI complaints which were present at his last hospitalization of diarrhea and intermittent heartburn-like symptoms. He was noted to have mild hyperglycemia by the paramedics with a glucose reading. He denies any chest pain, shortness of breath, vomiting, fevers or chills. He has a past medical history significant for A. fib and is on Eliquis, hypertension, hyperlipidemia, diabetes, right AKA and new diagnosed non-Hodgkin's lymphoma. He was receiving treatment at [place] and is attempting to transfer his treatment to the region. - Related Data Home Medications Medication Instructions Recorded Confirmed Multivit-Min/FA/Lycopen/Lutein 1 tab PO DAILY 12/14/21 07/07/22 [Centrum Silver Tablet] Docusate [Colace] 100 mg PO BID 06/20/22 07/07/22 Glucosam/Chond/Hyalu/Cf Borate 2 tab PO DAILY 06/20/22 07/07/22 [Move Free Joint Health Tablet] Prochlorperazine [Compazine] 10 mg PO Q6H PRN 06/20/22 07/07/22 allopurinoL [Zyloprim] 300 mg PO BID 06/20/22 07/07/22 icosapent ethyL [Icosapent Ethyl] 2 gm PO BID-W/MEALS 06/20/22 07/07/22 predniSONE 100 mg PO DIRECTED 06/20/22 07/07/22 Previous Rx's Medication Instructions Recorded Apixaban [Eliquis] 5 mg PO BID #0 12/16/21 metFORMIN HCL [Glucophage] 500 mg PO BID #0 12/16/21 Pantoprazole [Protonix] 40 mg PO BID #60 tab 06/21/22 Dapagliflozin Propanediol [Farxiga] 5 mg PO DAILY #30 tab 06/24/22 Insulin Detemir [Levemir Flextouch 18 units SQ HS #2 pen 06/24/22 Pen] Losartan [Cozaar] 25 mg PO DAILY #90 tab 06/24/22 Metoprolol Succinate (ER) [Toprol 25 mg PO DAILY #90 tab 06/24/22 XL] Allergies Allergy/AdvReac Type Severity Reaction Status Date / Time No Known Allergies Allergy Verified 07/07/22 09:40 Review of Systems ROS Statement: Those systems with pertinent positive or pertinent negative responses have been documented in the HPI. ROS Other: All systems not noted in ROS Statement are negative. Past Medical History Past Medical History: Atrial Fibrillation, Cancer, Diabetes Mellitus, Hyperlipidemia, Hypertension Additional Past Medical History / Comment(s): Non-Hodgkin's lymphoma History of Any Multi-Drug Resistant Organisms: None Reported Past Surgical History: Cholecystectomy, Orthopedic Surgery, Pacemaker Additional Past Surgical History / Comment(s): right aka due to accident Past Anesthesia/Blood Transfusion Reactions: No Reported Reaction Additional Past Anesthesia/Blood Transfusion Reaction / Comment(s): na Type of Cardiac Device: Permanent Pacemaker Device Placement Date:: December 16, 2021 Past Psychological History: No Psychological Hx Reported Smoking Status: Never smoker Past Alcohol Use History: None Reported Past Drug Use History: None Reported - Past Family History Father Family Medical History: Cancer Additional Family Medical History / Comment(s): Pt states father was heavy smoker and developed throat cancer Mother Family Medical History: Hypertension Additional Family Medical History / Comment(s): Pt states mother was healthy and lived to General Exam Limitations: no limitations General appearance: alert, in no apparent distress Head exam: Present: atraumatic, normocephalic, normal inspection Eye exam: Present: normal appearance, PERRL, EOMI. Absent: scleral icterus, conjunctival injection, periorbital swelling ENT exam: Present: normal exam, mucous membranes moist Neck exam: Present: normal inspection, full ROM Respiratory exam: Present: normal lung sounds bilaterally. Absent: respiratory distress, wheezes, rales, rhonchi, stridor Cardiovascular Exam: Present: regular rate, irregular rhythm, normal heart sounds. Absent: systolic murmur, diastolic murmur, rubs, gallop, clicks GI/Abdominal exam: Present: soft, normal bowel sounds, hernia. Absent: distended, tenderness, guarding, rebound, rigid Rectal exam: Present: deferred Extremities exam: Present: other (Right AKA with prosthesis intact). Absent: pedal edema (To left lower extremity) Back exam: Present: normal inspection Neurological exam: Present: alert, oriented X3, CN II-XII intact Psychiatric exam: Present: normal affect, normal mood Skin exam: Present: warm, dry, intact, normal color. Absent: rash Course Vital Signs 07/02/22 07/02/22 07/02/22 14:05 14:10 17:53 Temperature 98.6 F Pulse Rate 82 75 82 Respiratory 18 18 18 Rate Blood Pressure 143/75 149/78 O2 Sat by Pulse 98 98 96 Oximetry Medical Decision Making - Medical Decision Making 77-year-old male presenting to the emergency room complaints of generalized malaise and continued abdominal discomfort and diarrhea. Recent hospitalization for the symptoms and was discharged home on June 24. Newly diagnosed non-Hodgkin's lymphoma. Will obtain CBC, CMP along with COVID and influenza swabs. High probability for generalized malaise and GI symptoms secondary to non-Hodgkin's lymphoma and medications. IV fluid 500 mL bolus given by EMS. Will defer further IV fluids at this time. Laboratory studies reveals no acute abnormalities, Covid and influenza swabs both negative. No indication for admission or further diagnostic imaging or laboratory studies. Will discharge patient home with follow-up with his primary care provider and oncology. Long discussion regarding comorbid conditions and current medication regiment. Case discussed with Dr. Cabrera. - Lab Data Result diagrams: 07/02/22 14:51 07/02/22 15:26 Lab Results 07/02/22 07/02/22 07/02/22 Range/Units 14:51 14:51 14:51 WBC 4.2 (3.8-10.6) k/uL RBC 3.80 L (4.30-5.90) m/uL Hgb 10.5 L (13.0-17.5) gm/dL Hct 30.8 L (39.0-53.0) % MCV 81.0 (80.0-100.0) fL MCH 27.5 (25.0-35.0) pg MCHC 34.0 (31.0-37.0) g/dL RDW 16.7 H (11.5-15.5) % Plt Count 244 (150-450) k/uL MPV 8.2 Neutrophils % 73 % Lymphocytes % 15 % Monocytes % 7 % Eosinophils % 2 % Basophils % 1 % Neutrophils # 3.1 (1.3-7.7) k/uL Lymphocytes # 0.6 L (1.0-4.8) k/uL Monocytes # 0.3 (0-1.0) k/uL Eosinophils # 0.1 (0-0.7) k/uL Basophils # 0.0 (0-0.2) k/uL Hypochromasia Moderate Poikilocytosis Slight Anisocytosis Slight Microcytosis Slight Sodium (137-145) mmol/L Potassium (3.5-5.1) mmol/L Chloride (98-107) mmol/L Carbon Dioxide (22-30) mmol/L Anion Gap mmol/L BUN (9-20) mg/dL Creatinine (0.66-1.25) mg/dL Est GFR (CKD-EPI)AfAm (>60 ml/min/1.73 sqM) Est GFR (CKD-EPI)NonAf (>60 ml/min/1.73 sqM) Glucose (74-99) mg/dL Calcium (8.4-10.2) mg/dL Total Bilirubin (0.2-1.3) mg/dL AST (17-59) U/L ALT (4-49) U/L Alkaline Phosphatase (38-126) U/L Total Protein (6.3-8.2) g/dL Albumin (3.5-5.0) g/dL Coronavirus (PCR) Not Detected (Not Detectd) Influenza Type A RNA Not Detected (Not Detectd) Influenza Type B (PCR) Not Detected (Not Detectd) 07/02/22 Range/Units 15:26 WBC (3.8-10.6) k/uL RBC (4.30-5.90) m/uL Hgb (13.0-17.5) gm/dL Hct (39.0-53.0) % MCV (80.0-100.0) fL MCH (25.0-35.0) pg MCHC (31.0-37.0) g/dL RDW (11.5-15.5) % Plt Count (150-450) k/uL MPV Neutrophils % % Lymphocytes % % Monocytes % % Eosinophils % % Basophils % % Neutrophils # (1.3-7.7) k/uL Lymphocytes # (1.0-4.8) k/uL Monocytes # (0-1.0) k/uL Eosinophils # (0-0.7) k/uL Basophils # (0-0.2) k/uL Hypochromasia Poikilocytosis Anisocytosis Microcytosis Sodium 132 L (137-145) mmol/L Potassium 4.1 (3.5-5.1) mmol/L Chloride 101 (98-107) mmol/L Carbon Dioxide 20 L (22-30) mmol/L Anion Gap 11 mmol/L BUN 14 (9-20) mg/dL Creatinine 0.57 L (0.66-1.25) mg/dL Est GFR (CKD-EPI)AfAm >90 (>60 ml/min/1.73 sqM) Est GFR (CKD-EPI)NonAf >90 (>60 ml/min/1.73 sqM) Glucose 223 H (74-99) mg/dL Calcium 8.3 L (8.4-10.2) mg/dL Total Bilirubin 0.5 (0.2-1.3) mg/dL AST 20 (17-59) U/L ALT 21 (4-49) U/L Alkaline Phosphatase 65 (38-126) U/L Total Protein 5.4 L (6.3-8.2) g/dL Albumin 3.2 L (3.5-5.0) g/dL Coronavirus (PCR) (Not Detectd) Influenza Type A RNA (Not Detectd) Influenza Type B (PCR) (Not Detectd) Disposition Clinical Impression: Feeling unwell Disposition: HOME SELF-CARE Condition: Stable Instructions (If sedation given, give patient instructions): Non-Hodgkin Lymphoma (ED) Additional Instructions: Please follow-up with your primary care provider. Please continue your current medication regimen as prescribed. Please return to the Emergency Department if symptoms worsen or any other concerns. Is patient prescribed a controlled substance at d/c from ED?: No Referrals: Sophie Segura MD [Primary Care Provider] - 1-2 days Time of Disposition: 16:57
[2022-07-02 15:00] LABS: Anisocytosis Slight; Basophils % (A) 1 %; Eosinophils # (A) 0.1 k/uL (0-0.7); Eosinophils % (A) 2 %; HCT 30.8 % (39.0-53.0); HGB 10.5 gm/dL (13.0-17.5); Hypochromasia Moderate; Lymphocytes # (A) 0.6 k/uL (1.0-4.8); Lymphocytes % (A) 15 %; MCH 27.5 pg (25.0-35.0); Mean Platelet Volume 8.2; Microcytosis Slight; Monocytes # (A) 0.3 k/uL (0-1.0); Monocytes % (A) 7 %; Neutrophils # (A) 3.1 k/uL (1.3-7.7); Neutrophils % (A) 73 %; Platelet Count 244 k/uL (150-450); Poikilocytosis Slight; RDW 16.7 % (11.5-15.5); WBC 4.2 k/uL (3.8-10.6)
[2022-07-02 15:50] LABS: ALT 21 U/L (4-49); AST 20 U/L (17-59); African American GFR (CKD) >90 (>60 ml/min/1.73 sqM); Albumin 3.2 g/dL (3.5-5.0); Alkaline Phosphatase 65 U/L (38-126); Anion Gap 11 mmol/L; Blood Urea Nitrogen 14 mg/dL (9-20); Calcium 8.3 mg/dL (8.4-10.2); Carbon Dioxide 20 mmol/L (22-30); Chloride 101 mmol/L (98-107); Glucose 223 mg/dL (74-99); Non-African American GFR(CKD) >90 (>60 ml/min/1.73 sqM); Potassium 4.1 mmol/L (3.5-5.1); Sodium 132 mmol/L (137-145); Total Bilirubin 0.5 mg/dL (0.2-1.3); Total Protein 5.4 g/dL (6.3-8.2)
[2022-07-02 17:54] VITALS: BP 149/78; PULSE 82
== END 2022-07-02 17:54 | disposition home or self-care (01) ==
LOC: EC 13:59
DX: R69 Illness, unspecified (principal); I10 Essential (primary) hypertension; I48.91 Unspecified atrial fibrillation; E11.9 Type 2 diabetes mellitus without complications; E78.5 Hyperlipidemia, unspecified; Z79.84 Long term (current) use of oral hypoglycemic drugs; Z79.4 Long term (current) use of insulin; Z79.811 Long term (current) use of aromatase inhibitors; Z79.899 Other long term (current) drug therapy; Z20.822 Contact with and (suspected) exposure to COVID-19
CPT/HCPCS: 36415; 80053; 85025; 87502; 87635; 99285

== ENCOUNTER 2022-07-19 16:55 | Inpatient (IN) | payer MEDICARE, OTHER ==
[2022-07-19] MEDS ORDERED: SODIUM CHLORIDE 0.9% 500 ML 500 ML IV STA (18:04)
[2022-07-19 18:28] LABS: Anisocytosis Slight; Basophils % (A) 1 %; Eosinophils % (A) 1 %; HCT 30.1 % (39.0-53.0); Hypochromasia Moderate; Lymphocytes # (A) 0.7 k/uL (1.0-4.8); Lymphocytes % (A) 13 %; MCH 26.1 pg (25.0-35.0); MCHC 33.2 g/dL (31.0-37.0); MCV 78.7 fL (80.0-100.0); Mean Platelet Volume 8.4; Microcytosis Slight; Monocytes # (A) 0.5 k/uL (0-1.0); Monocytes % (A) 9 %; Neutrophils # (A) 4.4 k/uL (1.3-7.7); Neutrophils % (A) 77 %; Platelet Count 277 k/uL (150-450); Poikilocytosis Slight; RBC 3.83 m/uL (4.30-5.90); WBC 5.7 k/uL (3.8-10.6)
--- NOTE | 2022-07-19 18:30 | XR ---
EXAMINATION TYPE: XR chest 1V portable DATE OF EXAM: 07/19/2022 COMPARISON: 12/16/2021 HISTORY: Lead placement check TECHNIQUE: Single view FINDINGS: There is left axillary pacemaker and lead tips are over the right ventricle. Heart size is normal. There is some mild interstitial infiltrates in both lower lobes. No obvious heart failure. IMPRESSION: Lateral lower lobe pulmonary interstitial infiltrates are increased compared to last exam . No heart failure seen.
[2022-07-19 18:37] LABS: ALT 19 U/L (4-49); AST 30 U/L (17-59); African American GFR (CKD) >90 (>60 ml/min/1.73 sqM); Alkaline Phosphatase 68 U/L (38-126); Anion Gap 11 mmol/L; Blood Urea Nitrogen 7 mg/dL (9-20); Calcium 8.5 mg/dL (8.4-10.2); Carbon Dioxide 23 mmol/L (22-30); Chloride 100 mmol/L (98-107); Glucose 189 mg/dL (74-99); INR 1.1 (<1.2); Magnesium 1.1 mg/dL (1.6-2.3); Non-African American GFR(CKD) >90 (>60 ml/min/1.73 sqM); Partial Thromboplastin Time 25.5 sec (22.0-30.0); Potassium 3.5 mmol/L (3.5-5.1); Prothrombin Time 11.6 sec (9.0-12.0); Sodium 134 mmol/L (137-145); Total Bilirubin 0.4 mg/dL (0.2-1.3); Total Protein 5.3 g/dL (6.3-8.2)
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
[2022-07-19] MEDS: MAGNESIUM SULFATE-D5W PMX 1 GM in DEXTROSE/WATER 1 100ML.BAG IVPB SCH ×2 (19:53→21:18)
[2022-07-19 20:23] LABS: Appearance,Urine Clear (Clear); Bilirubin,Urine Negative (Negative); Blood,Urine Negative (Negative); Color,Urine Colorless; Glucose,Urine (UA) 1+ (Negative); Ketones,Urine Trace (Negative); Leukocyte Esterase,Urine Negative (Negative); Nitrite,Urine Negative (Negative); Protein,Urine Negative (Negative); Specific Gravity,Urine 1.004 (1.001-1.035); Urobilinogen,Urine <2.0 mg/dL (<2.0)
[2022-07-19] MEDS ORDERED: NALOXONE 0.4 MG/ML 1 ML VIAL IV PRN (20:43)
[2022-07-19] MEDS ORDERED: ACETAMINOPHEN TAB 325 MG TAB PO PRN (20:43)
[2022-07-19] MEDS: SODIUM CHLORIDE 0.9% 1,000 ML IV SCH (21:19)
[2022-07-19] MEDS ORDERED: MELATONIN 3 MG TABLET PO STA (22:39)
[2022-07-20] MEDS: DAPAGLIFLOZIN PROPANEDIOL 5 MG TABLET PO SCH (09:30)
[2022-07-20] MEDS: allopurinoL 300 MG TAB PO SCH ×2 (09:31→20:50)
[2022-07-20] MEDS: PANTOPRAZOLE 40 MG TABLET PO SCH ×2 (09:31→20:51)
[2022-07-20] MEDS: metFORMIN 500 MG TAB PO SCH ×2 (09:31→20:51)
[2022-07-20] MEDS: APIXABAN 5 MG TAB PO SCH ×2 (09:31→20:50)
[2022-07-20] MEDS: DOCUSATE 100 MG CAP PO SCH ×2 (09:31→20:50)
[2022-07-20] MEDS: MULTIVITAMINS, THERA 1 EACH TAB PO SCH (09:31)
[2022-07-20] MEDS: METOPROLOL SUCCINATE (ER) 25 MG TAB.ER.24H PO SCH (09:31)
[2022-07-20] MEDS: LOSARTAN 25 MG TAB PO SCH (09:31)
[2022-07-20] MEDS ORDERED: DEXTROSE 50% SYRINGE 50 ML IVP PRN ×2 (10:51)
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
[2022-07-20] MEDS: INSULIN ASPART (NovoLOG) 100 UNIT/ML VIAL SQ SCH ×3 (12:11→20:51)
[2022-07-20 12:12] LABS: Glucose,Whole Blood 153 mg/dL (70-110)
[2022-07-20] MEDS: SODIUM CHLORIDE 0.9% 1,000 ML IV SCH (12:33)
[2022-07-20] MEDS: PROCHLORPERAZINE 10 MG TAB PO PRN (17:00)
[2022-07-20 17:03] LABS: Glucose,Whole Blood 139 mg/dL (70-110)
[2022-07-20] MEDS: NON FORMULARY DRUG (Icosapent Ethyl [Icosapent Ethyl] 1 GM Capsule) PO SCH (17:13)
[2022-07-20 20:19] LABS: Glucose,Whole Blood 135 mg/dL (70-110)
[2022-07-20] MEDS: INSULIN DETEMIR (LEVEMIR) 100 UNIT/ML SYR SQ SCH (20:51)
[2022-07-20] MEDS: MAG HYDROX/AL HYDROX/SIMETH 30 ML, LIDOCAINE VISCOUS 2% 30 ML, diphenhydrAMINE ELIXIR 7... PO SCH ×4 (23:18)
[2022-07-21] MEDS: SODIUM CHLORIDE 0.9% 1,000 ML IV SCH ×3 (01:09→16:32)
[2022-07-21 07:31] LABS: Glucose,Whole Blood 103 mg/dL (70-110)
[2022-07-21] MEDS: INSULIN ASPART (NovoLOG) 100 UNIT/ML VIAL SQ SCH ×4 (07:39→20:27)
[2022-07-21] MEDS: NON FORMULARY DRUG (Icosapent Ethyl [Icosapent Ethyl] 1 GM Capsule) PO SCH ×2 (08:04→16:30)
[2022-07-21] MEDS: metFORMIN 500 MG TAB PO SCH ×2 (09:11→20:28)
[2022-07-21] MEDS: allopurinoL 300 MG TAB PO SCH ×2 (09:11→20:28)
[2022-07-21] MEDS: LOSARTAN 25 MG TAB PO SCH (09:11)
[2022-07-21] MEDS: MAG HYDROX/AL HYDROX/SIMETH 30 ML, LIDOCAINE VISCOUS 2% 30 ML, diphenhydrAMINE ELIXIR 7... PO SCH ×12 (09:11→21:41)
[2022-07-21] MEDS: DAPAGLIFLOZIN PROPANEDIOL 5 MG TABLET PO SCH (09:11)
[2022-07-21] MEDS: MULTIVITAMINS, THERA 1 EACH TAB PO SCH (09:11)
[2022-07-21] MEDS: PANTOPRAZOLE 40 MG TABLET PO SCH ×2 (09:11→20:28)
[2022-07-21] MEDS: APIXABAN 5 MG TAB PO SCH ×2 (09:11→20:28)
[2022-07-21] MEDS: METOPROLOL SUCCINATE (ER) 25 MG TAB.ER.24H PO SCH (09:11)
[2022-07-21] MEDS: DOCUSATE 100 MG CAP PO SCH ×2 (09:11→20:28)
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
[2022-07-21 11:09] LABS: ALT 21 U/L (4-49); AST 28 U/L (17-59); African American GFR (CKD) >90 (>60 ml/min/1.73 sqM); Albumin/Globulin Ratio 1.4; Alkaline Phosphatase 68 U/L (38-126); Anion Gap 10 mmol/L; Blood Urea Nitrogen 8 mg/dL (9-20); Calcium 8.3 mg/dL (8.4-10.2); Carbon Dioxide 25 mmol/L (22-30); Chloride 103 mmol/L (98-107); Globulin 2.1 g/dL; Glucose 118 mg/dL (74-99); Magnesium 1.6 mg/dL (1.6-2.3); Non-African American GFR(CKD) >90 (>60 ml/min/1.73 sqM); Potassium 3.5 mmol/L (3.5-5.1); Sodium 138 mmol/L (137-145); Total Bilirubin 0.6 mg/dL (0.2-1.3); Total Protein 5.1 g/dL (6.3-8.2)
[2022-07-21 11:22] LABS: Anisocytosis Slight; HCT 29.8 % (39.0-53.0); HGB 9.5 gm/dL (13.0-17.5); Hypochromasia Marked; MCH 25.8 pg (25.0-35.0); MCHC 31.9 g/dL (31.0-37.0); Mean Platelet Volume 7.6; Microcytosis Slight; Platelet Count 290 k/uL (150-450); Poikilocytosis Slight; RBC 3.68 m/uL (4.30-5.90); RDW 16.9 % (11.5-15.5); WBC 5.3 k/uL (3.8-10.6)
[2022-07-21 12:10] LABS: Glucose,Whole Blood 132 mg/dL (70-110)
--- NOTE | 2022-07-21 13:39 | P.PN ---
Subjective Progress Note Date: 07/21/22 HISTORY OF PRESENT ILLNESS This is a 77-year-old male patient with past medical history of paroxysmal atrial fibrillation on long-term anticoagulation with eliquis, hypertension, hy perlipidemia, complete heart block status post permanent pacemaker, diabetes mellitus 2, right [id number] amputation, non-Hodgkin's lymphoma treated at [facility] and recently diagnosed. Patient was hospitalized earlier this month for A. fib with RVR, stabilized and was discharged home. Patient has Mediport in place for chemotherapy and received 1 treatment R CHOP. Patient presented to the hospital with complaints of discomfort in his abdomen but without vomiting or diarrhea. Patient had a fall in his apartment. He was just hospitalized at [facility] and discharged 2 days ago. He has had a repair done on his prosthesis for his right leg but states it is too heavy for him to ambulate with. Patient was found to be afebrile, heart rate 81, blood pressure 144/73, pulse ox 97% on room air. EKG was a paced rhythm without acute ST changes. WBC 5.7, hemoglobin 10, platelet count 277. Sodium 134, potassium 3.5, chloride 100, CO2 23, BUN 7 creatinine 0.57. Blood sugar 189. INR 1.1. Magnesium 1.1. Liver function tests within normal limits. Albumin 3.0. Lactic acid 0.9. Contreras virus PCR not detected. Urinalysis clear, trace ketones no sign of infection. Chest x-ray reveals lateral lower lobe pulmonary interstitial infiltrates are increased compared to last exam. No heart failure. Patient is seen today in the emergency center waiting for a bed on the cardiac stepdown unit. Patient has been started on his home medications, continue IV fluids, consult with oncology. 07/21: Patient has been seen by oncology with recommendations for possible in patient CHOP once lipase is improved. Patient had been on a heart healthy diet we will change him back to clear liquids today. He states that yesterday he had severe abdominal pain started approximately 1 hour after he ate turkey or chicken with gravy. He states he had a total of 10 bowel movements yesterday that were all soft, not watery. He denies any bowel movements today. Repeat blood work reveals WBC 5.3, hemoglobin 9.5, platelet count 290. Electrolytes are normal. BUN 8 and creatinine 0.65. Blood blood glucose running between 103 and 135. Calcium 8.3. Liver function tests are normal. patient has been evaluated by therapy with recommendations for home with home care. REVIEW OF SYSTEMS Constitutional: No fever, no chills, no night sweats. No weight change. No weakness, fatigue or lethargy. No daytime sleepiness. EENT: No headache. No blurred vision or double vision, no loss of vision. No loss of Hearing, no ringing in the ears, no dizziness. No nasal drainage or congestion. No epistaxis. No sore throat. Lungs: No shortness of breath, cough, no sputum production. No wheezing. Cardiovascular: No chest pain, no lower extremity edema. Reports palpitations. No paroxysmal nocturnal dyspnea. No orthopnea. No lightheadedness or dizzine ss. No syncopal episodes. Abdominal: Reports generalized mild abdominal pain. Reports nausea, no v omiting. No diarrhea. No constipation. No bloody or tarry stools. No loss of appetite. Genitourinary: No dysuria, increased frequency, urgency. No urinary retention. Musculoskeletal: No myalgias. No muscle weakness, no gait dysfunction, no frequent falls. No back pain. No neck pain. Integumentary: No wounds, no lesions. No rash or pruritus. No unusual bruising. No change in hair or nails. Neurologic: No aphasia. No facial droop. No change in mentation. No head injury. No headache. No paralysis. No paresthesia. Psychiatric: No depression is his anniversary of his 's . No anxiety. No mood swings. Endocrine: No abnormal blood sugars. No weight change. No excessive sweating or thirst. No cold intolerance. PHYSICAL EXAMINATION Gen: This is a 77-year-old male. Patient is restingin a chair at the bedsider and appears to be in no acute distress. HEENT: Head is atraumatic, normocephalic. Pupils equal, round. Sclerae is anicteric. NECK: Supple. No JVD. No lymphadenopathy. No thyromegaly. LUNGS: Clear to auscultation. No wheezes or rhonchi. No intercostal retractions. HEART: Irregular rate and rhythm. No murmur. ABDOMEN: Soft. Bowel sounds are present. No masses. No abdominal tenderness. EXTREMITIES: No pedal edema. No calf tenderness. Dorsalis pedis +2 left. Right-sided oeyar-veb-jkie amputation. NEUROLOGICAL: Patient is awake, alert and oriented x3. Cranial nerves 2 through 12 are grossly intact. ASSESSMENT AND PLAN 1. Hypomagnesemia status post replacement. 2. Dehydration. Patient is status post 500 mL bolus, continue IV fluids of 0.9 normal saline decreased to 50 mL per hour. 3. Abdominal discomfort with nausea most likely secondary to lymphoma, pancreatitis. Consult with oncology.Repeat lipase. 4. Non-Hodgkin's lymphoma. Patient to have port placed on June 28. Oncology consult appreciated. 5. Paroxysmal atrial fibrillation. Continue patient on eliquis 5 mg twice daily and Toprol-XL 25 mg daily. 6. Hypertenion. Continue patient on losartan 25 mg daily. 7. Hyperlipidemia. Continue Icosapent 2 g oral twice daily. 8. Diabetes mellitus type 2. Continue patient on metformin 500 mg twice daily, start patient on Farxiga 5 mg daily, continue Levemir 18 units at bedtime, add NovoLog scale before meals and at bedtime. 9. Right uniis-zhe-ybjl amputation, stable. Patient is having difficulty ambulating with prosthesis. Consult with PT and OT with recommendations for home with home care 10. Benign prostatic hypertrophy. Monitor for urinary retention. 11. Generalized gout. Continue allopurinol 300 mg twice daily. 12. Gastroesophageal reflux disease and GI prophylaxis. Continue Protonix 40 mg twice daily. 13. DVT prophylaxis. Continue eliquis. DISCHARGE PLAN Home with home care. Impression and plan of care have been directed as dictated by the signing physician. Christin Mckeon nurse practitioner acting as scribe for signing physician. Objective - Vital Signs Vital signs: Vital Signs Temp 97.8 F 07/21/22 04:50 Pulse 73 07/21/22 04:50 Resp 16 07/21/22 04:50 BP 142/74 07/21/22 04:50 Pulse Ox 98 07/21/22 04:50 FiO2 Intake & Output 07/20/22 07/21/22 07/21/22 18:59 06:59 18:59 Intake Total 450 825 Balance 450 825 Weight 121.563 kg Intake: Intake, IV Titration 450 825 Amount Sodium Chloride 0.9% 1, 450 825 000 ml @ 75 mls/hr IV . [id number] [facility] Rx#:[id number] Other: Voiding Method Urinal # Voids 2 1 # Bowel Movements 1 - Labs CBC & Chem 7: 07/21/22 10:41 07/21/22 10:41 Labs: Abnormal Lab Results - Last 24 Hours (Table) 07/19/22 07/20/22 07/20/22 Range/Units 18:00 12:10 17:01 POC Glucose (mg/dL) 153 H 139 H (70-110) mg/dL Hemoglobin A1c 9.2 H (0.0-6.0) % 07/20/22 Range/Units 20:17 POC Glucose (mg/dL) 135 H (70-110) mg/dL Hemoglobin A1c (0.0-6.0) %
--- NOTE | 2022-07-21 14:32 | P.PN ---
Subjective Progress Note Date: 07/21/22 Principal diagnosis: weakness, abdominal pain In follow-up today patient states that he had some gravy for lunch, this made him sick to his stomach, he vomited, he feels much better afterwards. He tolerates liquids. No other complaints on a 10 point review of systems Objective - Vital Signs Vital signs: Vital Signs Temp 97.6 F 07/21/22 12:13 Pulse 78 07/21/22 12:13 Resp 16 07/21/22 12:13 BP 151/80 07/21/22 12:13 Pulse Ox 97 07/21/22 12:13 FiO2 Intake & Output 07/20/22 07/21/22 07/21/22 18:59 06:59 18:59 Intake Total 450 825 Balance 450 825 Weight 121.563 kg Intake: Intake, IV Titration 450 825 Amount Sodium Chloride 0.9% 1, 450 825 000 ml @ 75 mls/hr IV . [id number] [facility] Rx#:[id number] Other: Voiding Method Urinal Urinal # Voids 2 1 # Bowel Movements 1 - Constitutional General appearance: Present: cooperative, no acute distress, obese - EENT Eyes: Present: anicteric sclerae, EOMI ENT: Present: hearing grossly normal - Respiratory Details: respirations even and unlabored - Gastrointestinal General gastrointestinal: Present: normal bowel sounds, soft, tenderness. Absent: absent bowel sounds, decreased bowel sounds, distended, hepatomegaly, hyperactive bowel sounds, organomegaly, rigid, scaphoid, splenomegaly, umbilical hernia, ventral hernia - Integumentary Integumentary: Present: pale - Neurologic Neurologic: Present: CNII-XII intact - Musculoskeletal Musculoskeletal: Present: generalized weakness - Psychiatric Psychiatric: Present: A&O x's 3, appropriate affect, intact judgment & insight - Labs CBC & Chem 7: 07/21/22 10:41 07/21/22 10:41 Labs: Abnormal Lab Results - Last 24 Hours (Table) 07/19/22 07/20/22 07/20/22 Range/Units 18:00 17:01 20:17 RBC (4.30-5.90) m/uL Hgb (13.0-17.5) gm/dL Hct (39.0-53.0) % RDW (11.5-15.5) % BUN (9-20) mg/dL Creatinine (0.66-1.25) mg/dL Glucose (74-99) mg/dL POC Glucose (mg/dL) 139 H 135 H (70-110) mg/dL Hemoglobin A1c 9.2 H (0.0-6.0) % Calcium (8.4-10.2) mg/dL Total Protein (6.3-8.2) g/dL Albumin (3.5-5.0) g/dL 07/21/22 07/21/22 07/21/22 Range/Units 10:41 10:41 12:09 RBC 3.68 L (4.30-5.90) m/uL Hgb 9.5 L (13.0-17.5) gm/dL Hct 29.8 L (39.0-53.0) % RDW 16.9 H (11.5-15.5) % BUN 8 L (9-20) mg/dL Creatinine 0.65 L (0.66-1.25) mg/dL Glucose 118 H (74-99) mg/dL POC Glucose (mg/dL) 132 H (70-110) mg/dL Hemoglobin A1c (0.0-6.0) % Calcium 8.3 L (8.4-10.2) mg/dL Total Protein 5.1 L (6.3-8.2) g/dL Albumin 3.0 L (3.5-5.0) g/dL Assessment and Plan (1) Diffuse large B cell lymphoma Current Visit: Yes Status: Acute Code(s): C83.30 - DIFFUSE LARGE B-CELL LYMPHOMA, UNSPECIFIED SITE SNOMED Code(s): 330572483 (2) Hypomagnesemia Current Visit: Yes Status: Acute Code(s): E83.42 - HYPOMAGNESEMIA SNOMED Code(s): 010847192 Plan: Pancreatitis-uncertain if from invasion of lymphoma or obstruction. Lipase does return to normal levels rather quickly when pt is consuming clear liquids only. His symptoms are mild to moderate. patient reported having gravy and back giving him a stomach ache with vomiting. Clear liquids only CHOP inpt has been decided is the best way to care for is patient since he is unfortunately unable to stay out of the hospital long enough to receive a treatment. Anticipation is that treatment will help to regress the lymphoma and hopefully stop recurrent pancreatitis. Pt is willing. Dr. Ginny Chinchilla had an extended discussion with patient today about treatment, side effects, answered all of his questions. Chemotherapy orders will be sent to pharmacy and to the unit. Treatment will start Sunday. Supportive medications ordered. Daily weights. We will request that some and bring patient's prosthetic because he does need to ambulate while on treatment. attests: I have seen and examined patient, performed H&P, developed impression and plan of care. Discussed with dictator. Agree with documentation, dictated as a scribe. Time with Patient: Greater than 30
[2022-07-21 16:10] VITALS: BMI 25.5
[2022-07-21] MEDS: SALT AND SODA MOUTHWASH 1,000 ML PO SCH ×3 (16:32→23:05)
[2022-07-21 17:02] LABS: Glucose,Whole Blood 152 mg/dL (70-110)
[2022-07-21 19:43] LABS: Chol/HDL Ratio 4.01 Ratio; LDL Cholesterol,Calculated 72.4 mg/dL (0.0-131.0); VLDL Calculation 18.44 mg/dL (5.00-40.00)
[2022-07-21 20:21] LABS: Glucose,Whole Blood 220 mg/dL (70-110)
[2022-07-21] MEDS: INSULIN DETEMIR (LEVEMIR) 100 UNIT/ML SYR SQ SCH (20:27)
[2022-07-21] MEDS: MELATONIN 3 MG TABLET PO PRN (20:28)
[2022-07-22] MEDS: SALT AND SODA MOUTHWASH 1,000 ML PO SCH ×5 (04:51→23:20)
[2022-07-22 06:20] LABS: Anisocytosis Slight; HCT 30.3 % (39.0-53.0); HGB 9.6 gm/dL (13.0-17.5); Hypochromasia Marked; MCH 25.1 pg (25.0-35.0); MCHC 31.6 g/dL (31.0-37.0); MCV 79.6 fL (80.0-100.0); Microcytosis Slight; Platelet Count 297 k/uL (150-450); Poikilocytosis Slight; RBC 3.81 m/uL (4.30-5.90); RDW 16.8 % (11.5-15.5); WBC 5.9 k/uL (3.8-10.6)
[2022-07-22 06:43] LABS: ALT 35 U/L (4-49); AST 93 U/L (17-59); African American GFR (CKD) >90 (>60 ml/min/1.73 sqM); Albumin 2.9 g/dL (3.5-5.0); Albumin/Globulin Ratio 1.3; Alkaline Phosphatase 136 U/L (38-126); Anion Gap 12 mmol/L; Blood Urea Nitrogen 10 mg/dL (9-20); Calcium 8.3 mg/dL (8.4-10.2); Carbon Dioxide 21 mmol/L (22-30); Chloride 103 mmol/L (98-107); Globulin 2.2 g/dL; Glucose 133 mg/dL (74-99); Non-African American GFR(CKD) >90 (>60 ml/min/1.73 sqM); Potassium 3.7 mmol/L (3.5-5.1); Sodium 136 mmol/L (137-145); Total Bilirubin 0.5 mg/dL (0.2-1.3); Total Protein 5.1 g/dL (6.3-8.2)
[2022-07-22 07:27] LABS: Glucose,Whole Blood 128 mg/dL (70-110)
[2022-07-22] MEDS: INSULIN ASPART (NovoLOG) 100 UNIT/ML VIAL SQ SCH ×4 (08:55→20:59)
[2022-07-22] MEDS: PANTOPRAZOLE 40 MG TABLET PO SCH ×2 (09:09→20:49)
[2022-07-22] MEDS: DOCUSATE 100 MG CAP PO SCH ×2 (09:09→20:48)
[2022-07-22] MEDS: metFORMIN 500 MG TAB PO SCH ×2 (09:09→20:49)
[2022-07-22] MEDS: allopurinoL 300 MG TAB PO SCH ×2 (09:09→20:49)
[2022-07-22] MEDS: METOPROLOL SUCCINATE (ER) 25 MG TAB.ER.24H PO SCH (09:09)
[2022-07-22] MEDS: APIXABAN 5 MG TAB PO SCH ×2 (09:09→20:49)
[2022-07-22] MEDS: LOSARTAN 25 MG TAB PO SCH (09:09)
[2022-07-22] MEDS: MULTIVITAMINS, THERA 1 EACH TAB PO SCH (09:09)
[2022-07-22] MEDS: MAG HYDROX/AL HYDROX/SIMETH 30 ML, LIDOCAINE VISCOUS 2% 30 ML, diphenhydrAMINE ELIXIR 7... PO SCH ×12 (09:10→23:19)
[2022-07-22] MEDS: DAPAGLIFLOZIN PROPANEDIOL 5 MG TABLET PO SCH (09:10)
[2022-07-22] MEDS: NON FORMULARY DRUG (Icosapent Ethyl [Icosapent Ethyl] 1 GM Capsule) PO SCH ×2 (09:12→15:25)
[2022-07-22 10:12] LABS: Lipase 10275 U/L (23-300)
[2022-07-22] MEDS: PROCHLORPERAZINE 10 MG TAB PO PRN (10:23)
[2022-07-22] MEDS: SODIUM CHLORIDE 0.9% 1,000 ML IV SCH (10:23)
--- NOTE | 2022-07-22 11:13 | P.PN ---
Subjective Progress Note Date: 07/22/22 HISTORY OF PRESENT ILLNESS This is a 77-year-old male patient with past medical history of paroxysmal atrial fibrillation on long-term anticoagulation with eliquis, hypertension, hy perlipidemia, complete heart block status post permanent pacemaker, diabetes mellitus 2, right uugvy-uqi-kjzc amputation, non-Hodgkin's lymphoma treated at [facility] and recently diagnosed. Patient was hospitalized earlier this month for A. fib with RVR, stabilized and was discharged home. Patient has Mediport in place for chemotherapy and received 1 treatment R CHOP. Patient presented to the hospital with complaints of discomfort in his abdomen but without vomiting or diarrhea. Patient had a fall in his apartment. He was just hospitalized at [facility] and discharged 2 days ago. He has had a repair done on his prosthesis for his right leg but states it is too heavy for him to ambulate with. Patient was found to be afebrile, heart rate 81, blood pressure 144/73, pulse ox 97% on room air. EKG was a paced rhythm without acute ST changes. WBC 5.7, hemoglobin 10, platelet count 277. Sodium 134, potassium 3.5, chloride 100, CO2 23, BUN 7 creatinine 0.57. Blood sugar 189. INR 1.1. Magnesium 1.1. Liver function tests within normal limits. Albumin 3.0. Lactic acid 0.9. Contreras virus PCR not detected. Urinalysis clear, trace ketones no sign of infection. Chest x-ray reveals lateral lower lobe pulmonary interstitial infiltrates are increased compared to last exam. No heart failure. Patient is seen today in the emergency center waiting for a bed on the cardiac stepdown unit. Patient has been started on his home medications, continue IV fluids, consult with oncology. 07/21: Patient has been seen by oncology with recommendations for possible in patient CHOP once lipase is improved. Patient had been on a heart healthy diet we will change him back to clear liquids today. He states that yesterday he had severe abdominal pain started approximately 1 hour after he ate turkey or chicken with gravy. He states he had a total of 10 bowel movements yesterday that were all soft, not watery. He denies any bowel movements today. Repeat blood work reveals WBC 5.3, hemoglobin 9.5, platelet count 290. Electrolytes are normal. BUN 8 and creatinine 0.65. Blood blood glucose running between 103 and 135. Calcium 8.3. Liver function tests are normal. patient has been evaluated by therapy with recommendations for home with home care. 07/22: Patient is lying down in bed he stated that" there is fire in my stomach" he has poor appetite,patient is scheduled to receive chemotherapy on Sunday he denies any chest pain, shortness of breath, mid epigastric abdominal pain, no nausea, vomiting , or diarrhea.we will continue to monitor. REVIEW OF SYSTEMS Constitutional: No fever, no chills, no night sweats. No weight change. No weakness, fatigue or lethargy. No daytime sleepiness. HEENT: No headache. No blurred vision or double vision, no loss of vision. No loss of Hearing, no ringing in the ears, no dizziness. No nasal drainage or congestion. No epistaxis. No sore throat. Lungs: No shortness of breath, cough, no sputum production. No wheezing. Cardiovascular: No chest pain, no lower extremity edema. Reports palpitations. No paroxysmal nocturnal dyspnea. No orthopnea. No lightheadedness or dizzin ess. No syncopal episodes. Abdominal: Reports generalized mild abdominal pain. Reports nausea, no vomiting. No diarrhea. No constipation. No bloody or tarry stools. No loss of appetite. Genitourinary: No dysuria, increased frequency, urgency. No urinary retention. Musculoskeletal: No myalgias. No muscle weakness, no gait dysfunction, no frequent falls. No back pain. No neck pain. Integumentary: No wounds, no lesions. No rash or pruritus. No unusual bruising. No change in hair or nails. Neurologic: No aphasia. No facial droop. No change in mentation. No head injury. No headache. No paralysis. No paresthesia. Psychiatric: No depression is his anniversary of his 's . No anxiety. No mood swings. Endocrine: No abnormal blood sugars. No weight change. No excessive sweating or thirst. No cold intolerance. PHYSICAL EXAMINATION Gen: This is a 77-year-old male. Patient is restingin a chair at the bedsider and appears to be in no acute distress. HEENT: Head is atraumatic, normocephalic. Pupils equal, round. Sclerae is anicteric. NECK: Supple. No JVD. No lymphadenopathy. No thyromegaly. LUNGS: Clear to auscultation. No wheezes or rhonchi. No intercostal retractions. HEART: First heart sound is depressed, second heart sound is normal irregularly irregular, there is JILL 2/6 located at the left sternal border. ABDOMEN: Soft. Bowel sounds are present. No masses. No abdominal tenderness. EXTREMITIES: No pedal edema. No calf tenderness. Dorsalis pedis +2 left. Right-sided wnqbt-wnz-wqvi amputation. NEUROLOGICAL: Patient is awake, alert and oriented x3. Cranial nerves 2 through 12 are grossly intact. ASSESSMENT AND PLAN 1. Hypomagnesemia status post replacement. 2. Acute kidney injury due to acute tubular necrosis. Patient is status post 500 mL bolus, continue IV fluids of 0.9 normal saline decreased to 50 mL per hour.we will continue to monitor CMP. 3. Abdominal discomfort with nausea most likely secondary to lymphoma and possibly lymphoma invasion that causing his pancreatitis. we will plan for chemotherapy hoping this we will prevent recurrent Pancreatitis 4. 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 5. Paroxysmal atrial fibrillation. Continue patient on eliquis 5 mg twice daily and Toprol-XL 25 mg daily. 6. Hypertenion and hypertensive cardiovascular disease. Continue patient on losartan 25 mg daily and Toprol XL 25 mg po daily, we will continue to monitor BP very closely 7. Hyperlipidemia. Continue Icosapent 2 g oral twice a day. 8. Diabetes mellitus type 2. Continue patient on metformin 500 mg twice daily, start patient on Farxiga 5 mg daily, continue Levemir 18 units at bedtime, add NovoLog scale before meals and at bedtime. 9. Right sfxaj-ckm-oalq amputation, stable. Patient is having difficulty ambulating with prosthesis. Consult with PT and OT with recommendations for home with home care 10. Benign prostatic hypertrophy. Monitor for urinary retention. 11. Generalized gout. Continue allopurinol 300 mg twice daily. 12. Gastroesophageal reflux disease and GI prophylaxis. Continue Protonix 40 mg twice daily. 13. DVT prophylaxis. Continue eliquis. 14. Insomnia. we will continue with Melatonin 3 mg po at bedtime. 15. Dry eye . we will add refresh tears tid 16. Prognosis is guarded. Objective - Vital Signs Vital signs: Vital Signs Temp 97.7 F 07/22/22 05:00 Pulse 77 07/22/22 08:30 Resp 16 07/22/22 08:30 BP 149/76 07/22/22 08:10 Pulse Ox 97 07/22/22 05:00 FiO2 Intake & Output 07/21/22 07/22/22 07/22/22 18:59 06:59 18:59 Intake Total 400 880 Balance 400 880 Weight 102.9 kg 98.5 kg Intake: Intake, IV Titration 400 400 Amount Sodium Chloride 0.9% 1, 400 400 000 ml @ 50 mls/hr IV . Q20H [facility] Rx#:[id number] Oral 480 Other: Voiding Method Urinal Urinal Urinal # Voids 1 2 3 # Bowel Movements 1 - Labs CBC & Chem 7: 07/22/22 05:45 07/22/22 05:45 Labs: Abnormal Lab Results - Last 24 Hours (Table) 07/21/22 07/21/22 07/21/22 Range/Units 10:41 10:41 12:09 RBC 3.68 L (4.30-5.90) m/uL Hgb 9.5 L (13.0-17.5) gm/dL Hct 29.8 L (39.0-53.0) % MCV (80.0-100.0) fL RDW 16.9 H (11.5-15.5) % Sodium (137-145) mmol/L Carbon Dioxide (22-30) mmol/L BUN 8 L (9-20) mg/dL Creatinine 0.65 L (0.66-1.25) mg/dL Glucose 118 H (74-99) mg/dL POC Glucose (mg/dL) 132 H (70-110) mg/dL Calcium 8.3 L (8.4-10.2) mg/dL AST (17-59) U/L Alkaline Phosphatase (38-126) U/L Total Protein 5.1 L (6.3-8.2) g/dL Albumin 3.0 L (3.5-5.0) g/dL HDL Cholesterol 30.20 L (40.00-60.00) mg/dL Lipase (23-300) U/L 07/21/22 07/21/22 07/22/22 Range/Units 17:00 20:19 05:45 RBC 3.81 L (4.30-5.90) m/uL Hgb 9.6 L (13.0-17.5) gm/dL Hct 30.3 L (39.0-53.0) % MCV 79.6 L (80.0-100.0) fL RDW 16.8 H (11.5-15.5) % Sodium (137-145) mmol/L Carbon Dioxide (22-30) mmol/L BUN (9-20) mg/dL Creatinine (0.66-1.25) mg/dL Glucose (74-99) mg/dL POC Glucose (mg/dL) 152 H 220 H (70-110) mg/dL Calcium (8.4-10.2) mg/dL AST (17-59) U/L Alkaline Phosphatase (38-126) U/L Total Protein (6.3-8.2) g/dL Albumin (3.5-5.0) g/dL HDL Cholesterol (40.00-60.00) mg/dL Lipase (23-300) U/L 07/22/22 07/22/22 Range/Units 05:45 07:25 RBC (4.30-5.90) m/uL Hgb (13.0-17.5) gm/dL Hct (39.0-53.0) % MCV (80.0-100.0) fL RDW (11.5-15.5) % Sodium 136 L (137-145) mmol/L Carbon Dioxide 21 L (22-30) mmol/L BUN (9-20) mg/dL Creatinine 0.58 L (0.66-1.25) mg/dL Glucose 133 H (74-99) mg/dL POC Glucose (mg/dL) 128 H (70-110) mg/dL Calcium 8.3 L (8.4-10.2) mg/dL AST 93 H (17-59) U/L Alkaline Phosphatase 136 H (38-126) U/L Total Protein 5.1 L (6.3-8.2) g/dL Albumin 2.9 L (3.5-5.0) g/dL HDL Cholesterol (40.00-60.00) mg/dL Lipase 49375 H (23-300) U/L
[2022-07-22] MEDS ORDERED: ARTIFICIAL TEARS OINTMENT 3.5 GM TUBE BOTH EYES PRN (11:14)
[2022-07-22 17:26] LABS: Glucose,Whole Blood 111 mg/dL (70-110)
[2022-07-22 20:20] LABS: Glucose,Whole Blood 133 mg/dL (70-110)
[2022-07-22] MEDS: INSULIN DETEMIR (LEVEMIR) 100 UNIT/ML SYR SQ SCH (20:49)
[2022-07-22] MEDS: MELATONIN 3 MG TABLET PO PRN (20:50)
[2022-07-23] MEDS: SODIUM CHLORIDE 0.9% 1,000 ML IV SCH (05:18)
[2022-07-23] MEDS: SALT AND SODA MOUTHWASH 1,000 ML PO SCH ×4 (05:19→19:43)
[2022-07-23 07:16] LABS: Glucose,Whole Blood 87 mg/dL (70-110)
[2022-07-23] MEDS: INSULIN ASPART (NovoLOG) 100 UNIT/ML VIAL SQ SCH ×4 (08:49→21:29)
[2022-07-23] MEDS: allopurinoL 300 MG TAB PO SCH ×2 (09:06→21:28)
[2022-07-23] MEDS: LOSARTAN 25 MG TAB PO SCH (09:06)
[2022-07-23] MEDS: APIXABAN 5 MG TAB PO SCH ×2 (09:06→21:28)
[2022-07-23] MEDS: METOPROLOL SUCCINATE (ER) 25 MG TAB.ER.24H PO SCH (09:06)
[2022-07-23] MEDS: DOCUSATE 100 MG CAP PO SCH ×2 (09:06→21:28)
[2022-07-23] MEDS: PANTOPRAZOLE 40 MG TABLET PO SCH ×2 (09:06→21:28)
[2022-07-23] MEDS: metFORMIN 500 MG TAB PO SCH ×2 (09:06→21:28)
[2022-07-23] MEDS: MULTIVITAMINS, THERA 1 EACH TAB PO SCH (09:06)
[2022-07-23] MEDS: DAPAGLIFLOZIN PROPANEDIOL 5 MG TABLET PO SCH (09:07)
[2022-07-23] MEDS: MAG HYDROX/AL HYDROX/SIMETH 30 ML, LIDOCAINE VISCOUS 2% 30 ML, diphenhydrAMINE ELIXIR 7... PO SCH ×12 (09:13→21:29)
--- NOTE | 2022-07-23 10:33 | P.PN ---
Subjective Progress Note Date: 07/23/22 HISTORY OF PRESENT ILLNESS This is a 77-year-old male patient with past medical history of paroxysmal atrial fibrillation on long-term anticoagulation with eliquis, hypertension, hy perlipidemia, complete heart block status post permanent pacemaker, diabetes mellitus 2, right zxuda-yyi-dfjg amputation, non-Hodgkin's lymphoma treated at [facility] and recently diagnosed. Patient was hospitalized earlier this month for A. fib with RVR, stabilized and was discharged home. Patient has Mediport in place for chemotherapy and received 1 treatment R CHOP. Patient presented to the hospital with complaints of discomfort in his abdomen but without vomiting or diarrhea. Patient had a fall in his apartment. He was just hospitalized at [facility] and discharged 2 days ago. He has had a repair done on his prosthesis for his right leg but states it is too heavy for him to ambulate with. Patient was found to be afebrile, heart rate 81, blood pressure 144/73, pulse ox 97% on room air. EKG was a paced rhythm without acute ST changes. WBC 5.7, hemoglobin 10, platelet count 277. Sodium 134, potassium 3.5, chloride 100, CO2 23, BUN 7 creatinine 0.57. Blood sugar 189. INR 1.1. Magnesium 1.1. Liver function tests within normal limits. Albumin 3.0. Lactic acid 0.9. Contreras virus PCR not detected. Urinalysis clear, trace ketones no sign of infection. Chest x-ray reveals lateral lower lobe pulmonary interstitial infiltrates are increased compared to last exam. No heart failure. Patient is seen today in the emergency center waiting for a bed on the cardiac stepdown unit. Patient has been started on his home medications, continue IV fluids, consult with oncology. 07/21: Patient has been seen by oncology with recommendations for possible in patient CHOP once lipase is improved. Patient had been on a heart healthy diet we will change him back to clear liquids today. He states that yesterday he had severe abdominal pain started approximately 1 hour after he ate turkey or chicken with gravy. He states he had a total of 10 bowel movements yesterday that were all soft, not watery. He denies any bowel movements today. Repeat blood work reveals WBC 5.3, hemoglobin 9.5, platelet count 290. Electrolytes are normal. BUN 8 and creatinine 0.65. Blood blood glucose running between 103 and 135. Calcium 8.3. Liver function tests are normal. patient has been evaluated by therapy with recommendations for home with home care. 07/22: Patient is lying down in bed he stated that" there is fire in my stomach" he has poor appetite,patient is scheduled to receive chemotherapy on Sunday he denies any chest pain, shortness of breath, mid epigastric abdominal pain, no nausea, vomiting , or diarrhea.we will continue to monitor. 07/23: Patient is laying down in bed in no acute distress, is currently on a clear liquid diet, per oncology recommendation, patient is scheduled to go for chemotherapy tomorrow morning, he has been feeling a bit better today, he did have a good bowel movement today, he has no chest pain or shortness breath at this time, he has no abdominal pain, or any burning sensation, his dry eyes are better today, he did sleep well last night. REVIEW OF SYSTEMS Constitutional: No fever, no chills, no night sweats. No weight change. No weakness, fatigue or lethargy. No daytime sleepiness. HEENT: No headache. No blurred vision or double vision, no loss of vision. No loss of Hearing, no ringing in the ears, no dizziness. No nasal drainage or congestion. No epistaxis. No sore throat. Lungs: No shortness of breath, cough, no sputum production. No wheezing. Cardiovascular: No chest pain, no lower extremity edema. Reports palpitations. No paroxysmal nocturnal dyspnea. No orthopnea. No lightheadedness or dizziness. No syncopal episodes. Abdominal: Reports generalized mild abdominal pain. Reports nausea, no vomiting. No diarrhea. No constipation. No bloody or tarry stools. No loss of appetite. Genitourinary: No dysuria, increased frequency, urgency. No urinary retention. Musculoskeletal: No myalgias. No muscle weakness, no gait dysfunction, no frequent falls. No back pain. No neck pain. Integumentary: No wounds, no lesions. No rash or pruritus. No unusual bruising. No change in hair or nails. Neurologic: No aphasia. No facial droop. No change in mentation. No head injury. No headache. No paralysis. No paresthesia. Psychiatric: No depression is his anniversary of his 's . No anxiety. No mood swings. Endocrine: No abnormal blood sugars. No weight change. No excessive sweating or thirst. No cold intolerance. PHYSICAL EXAMINATION Gen: This is a 77-year-old male. Patient is restingin a chair at the bedsider and appears to be in no acute distress. HEENT: Head is atraumatic, normocephalic. Pupils equal, round. Sclerae is anicteric. NECK: Supple. No JVD. No lymphadenopathy. No thyromegaly. LUNGS: Clear to auscultation. No wheezes or rhonchi. No intercostal retractions. HEART: First heart sound is depressed, second heart sound is normal irregularly irregular, there is JILL 2/6 located at the left sternal border. ABDOMEN: Soft. Bowel sounds are present. No masses. No abdominal tenderness. EXTREMITIES: No pedal edema. No calf tenderness. Dorsalis pedis +2 left. Right-sided tpags-mqr-vpej amputation. NEUROLOGICAL: Patient is awake, alert and oriented x3. Cranial nerves 2 through 12 are grossly intact. ASSESSMENT AND PLAN 1. 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 Patient will be started on chemotherapy tomorrow morning. This is a second cycle since April of this year. 2. Acute kidney injury due to acute tubular necrosis. Patient is status post 500 mL bolus, continue IV fluids of 0.9 normal saline decreased to 50 mL per hour.we will continue to monitor CMP. 3. Abdominal discomfort with nausea most likely secondary to lymphoma and possibly lymphoma invasion that causing his pancreatitis. we will plan for chemotherapy hoping this we will prevent recurrent Pancreatitis 4. 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 5. Paroxysmal atrial fibrillation. Continue patient on eliquis 5 mg twice daily and Toprol-XL 25 mg daily. 6. Hypertenion and hypertensive cardiovascular disease. Continue patient on losartan 25 mg daily and Toprol XL 25 mg po daily, we will continue to monitor BP very closely 7. Hyperlipidemia. Continue Icosapent 2 g oral twice a day. 8. Diabetes mellitus type 2. Continue patient on metformin 500 mg twice daily, start patient on Farxiga 5 mg daily, continue Levemir 18 units at bedtime, add NovoLog scale before meals and at bedtime. 9. Right oymtv-siw-bdyn amputation, stable. Patient is having difficulty ambulating with prosthesis. Consult with PT and OT with recommendations for home with home care 10. Benign prostatic hypertrophy. Monitor for urinary retention. 11. Generalized gout. Continue allopurinol 300 mg twice daily. 12. Gastroesophageal reflux disease and GI prophylaxis. Continue Protonix 40 mg twice daily. 13. DVT prophylaxis. Continue eliquis. 14. Insomnia. we will continue with Melatonin 3 mg po at bedtime. 15. Dry eye . continue refresh tears tid 16. Prognosis is guarded. Objective - Vital Signs Vital signs: Vital Signs Temp 97.7 F 07/23/22 04:50 Pulse 73 07/23/22 04:50 Resp 16 07/23/22 04:50 BP 151/78 07/23/22 04:50 Pulse Ox 96 07/23/22 04:50 FiO2 Intake & Output 07/22/22 07/23/22 07/23/22 18:59 06:59 18:59 Intake Total 1275 760 Balance 1275 760 Weight 102.4 kg Intake: Intake, IV Titration 400 Amount Sodium Chloride 0.9% 1, 400 000 ml @ 50 mls/hr IV . Q20H [facility] Rx#:[id number] Oral 1275 360 Other: Voiding Method Urinal Urinal # Voids 3 2 # Bowel Movements 1 - Labs CBC & Chem 7: 07/22/22 05:45 07/22/22 05:45 Labs: Abnormal Lab Results - Last 24 Hours (Table) 07/22/22 07/22/22 Range/Units 17:24 20:18 POC Glucose (mg/dL) 111 H 133 H (70-110) mg/dL
[2022-07-23] MEDS: PROCHLORPERAZINE 10 MG TAB PO PRN (11:06)
[2022-07-23] MEDS: NON FORMULARY DRUG (Icosapent Ethyl [Icosapent Ethyl] 1 GM Capsule) PO SCH ×2 (11:07→18:09)
[2022-07-23 11:18] LABS: Basophils # (A) 0.02 X 10*3/uL (0.00-0.10); Basophils % (A) 0.3 %; Eosinophils # (A) 0.07 X 10*3/uL (0.04-0.35); Eosinophils % (A) 0.9 %; HCT 27.1 % (39.6-50.0); HGB 9.2 g/dL (13.0-17.0); Immature Grans, Automated 0.5 %; Lymphocytes # (A) 0.45 X 10*3/uL (0.90-5.00); MCH 27.2 pg (27.0-32.0); MCHC 33.9 g/dL (32.0-37.0); MCV 80.2 fL (80.0-97.0); Monocytes # (A) 0.51 X 10*3/uL (0.20-1.00); Monocytes % (A) 6.8 %; NRBC Per 100 WBC 0 /100 WBCS (0.0-0.0); Neutrophils # (A) 6.42 X 10*3/uL (1.80-7.70); Neutrophils % (A) 85.5 %; Platelet Count 290 X 10*3/uL (140-440); RBC 3.38 X 10*6/uL (4.40-5.60); RDW 17.3 % (11.5-14.5); WBC 7.51 X 10*3/uL (4.50-10.00)
[2022-07-23 11:47] LABS: Glucose,Whole Blood 91 mg/dL (70-110)
[2022-07-23 12:21] LABS: African American GFR (CKD) 110.8 (60.0-200.0); Albumin 3.1 g/dL (3.8-4.9); Albumin/Globulin Ratio 1.63 (1.60-3.17); Anion Gap 13.3 mmol/L (10.00-18.00); BUN/Creat Ratio 12.67 Ratio (12.00-20.00); Blood Urea Nitrogen 7.6 mg/dL (9.0-27.0); Calcium 8.5 mg/dL (8.7-10.3); Carbon Dioxide 19.7 mmol/L (20.0-27.5); Globulin 1.9 g/dL (1.6-3.3); Magnesium 1.4 mg/dL (1.5-2.4); Non-African American GFR(CKD) 95.6 (60.0-200.0); Potassium 3.6 mmol/L (3.5-5.5); Total Bilirubin 0.5 mg/dL (0.30-1.20)
[2022-07-23 17:28] LABS: Glucose,Whole Blood 105 mg/dL (70-110)
[2022-07-23 20:33] LABS: Glucose,Whole Blood 89 mg/dL (70-110)
[2022-07-23] MEDS: MELATONIN 3 MG TABLET PO PRN (21:28)
[2022-07-23] MEDS: INSULIN DETEMIR (LEVEMIR) 100 UNIT/ML SYR SQ SCH (21:29)
[2022-07-24] MEDS: SALT AND SODA MOUTHWASH 1,000 ML PO SCH ×5 (01:21→20:33)
[2022-07-24] MEDS: SODIUM CHLORIDE 0.9% 1,000 ML IV SCH ×2 (03:03→22:31)
[2022-07-24 06:43] LABS: Anisocytosis Slight; Basophils % (A) 0 %; Eosinophils # (A) 0.1 k/uL (0-0.7); Eosinophils % (A) 2 %; HCT 32.2 % (39.0-53.0); HGB 10.2 gm/dL (13.0-17.5); Hypochromasia Marked; Lymphocytes # (A) 0.5 k/uL (1.0-4.8); Lymphocytes % (A) 9 %; MCH 25.2 pg (25.0-35.0); MCHC 31.6 g/dL (31.0-37.0); MCV 79.5 fL (80.0-100.0); Mean Platelet Volume 8.3; Microcytosis Slight; Monocytes # (A) 0.4 k/uL (0-1.0); Monocytes % (A) 7 %; Neutrophils # (A) 4.7 k/uL (1.3-7.7); Neutrophils % (A) 81 %; Platelet Count 246 k/uL (150-450); Poikilocytosis Moderate; RBC 4.05 m/uL (4.30-5.90); RDW 17.1 % (11.5-15.5); WBC 5.8 k/uL (3.8-10.6)
[2022-07-24 07:01] LABS: ALT 103 U/L (4-49); AST 204 U/L (17-59); African American GFR (CKD) >90 (>60 ml/min/1.73 sqM); Albumin 2.9 g/dL (3.5-5.0); Albumin/Globulin Ratio 1.3; Alkaline Phosphatase 447 U/L (38-126); Anion Gap 15 mmol/L; Blood Urea Nitrogen 7 mg/dL (9-20); Calcium 8.5 mg/dL (8.4-10.2); Carbon Dioxide 15 mmol/L (22-30); Chloride 105 mmol/L (98-107); Globulin 2.2 g/dL; Glucose 97 mg/dL (74-99); Non-African American GFR(CKD) >90 (>60 ml/min/1.73 sqM); Potassium 3.6 mmol/L (3.5-5.1); Sodium 135 mmol/L (137-145); Total Protein 5.1 g/dL (6.3-8.2)
[2022-07-24 07:14] LABS: Glucose,Whole Blood 104 mg/dL (70-110)
[2022-07-24] MEDS: INSULIN ASPART (NovoLOG) 100 UNIT/ML VIAL SQ SCH ×4 (08:44→20:41)
[2022-07-24] MEDS: NON FORMULARY DRUG (Icosapent Ethyl [Icosapent Ethyl] 1 GM Capsule) PO SCH ×2 (08:44→16:33)
[2022-07-24] MEDS: METOPROLOL SUCCINATE (ER) 25 MG TAB.ER.24H PO SCH (08:53)
[2022-07-24] MEDS: MULTIVITAMINS, THERA 1 EACH TAB PO SCH (08:53)
[2022-07-24] MEDS: APIXABAN 5 MG TAB PO SCH ×2 (08:53→20:34)
[2022-07-24] MEDS: metFORMIN 500 MG TAB PO SCH ×2 (08:53→20:34)
[2022-07-24] MEDS: PANTOPRAZOLE 40 MG TABLET PO SCH ×2 (08:53→20:34)
[2022-07-24] MEDS: MAG HYDROX/AL HYDROX/SIMETH 30 ML, LIDOCAINE VISCOUS 2% 30 ML, diphenhydrAMINE ELIXIR 7... PO SCH ×12 (08:54→22:29)
[2022-07-24] MEDS: LOSARTAN 25 MG TAB PO SCH (08:54)
[2022-07-24] MEDS: allopurinoL 300 MG TAB PO SCH ×2 (08:54→20:33)
[2022-07-24] MEDS: DOCUSATE 100 MG CAP PO SCH ×2 (08:54→20:34)
[2022-07-24 08:56] LABS: Glucose,Whole Blood 113 mg/dL (70-110)
[2022-07-24] MEDS: DAPAGLIFLOZIN PROPANEDIOL 5 MG TABLET PO SCH (08:58)
[2022-07-24] MEDS ORDERED: DRY MOUTH SPRAY 44.3 SPRAY/44.3 ML SPRAY MUCOUS MEM PRN (10:37)
--- NOTE | 2022-07-24 10:37 | P.PN ---
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 Patient was hospitalized earlier this month for A. fib with RVR, stabilized and was discharged home. Patient has Mediport in place for chemotherapy and received 1 treatment R CHOP. Patient presented to the hospital with complaints of discomfort in his abdomen but without vomiting or diarrhea. Patient had a fall in his apartment. He was just hospitalized at [facility] and discharged 2 days ago. He has had a repair done on his prosthesis for his right leg but states it is too heavy for him to ambulate with. Patient was found to be afebrile, heart rate 81, blood pressure 144/73, pulse ox 97% on room air. EKG was a paced rhythm without acute ST changes. WBC 5.7, hemoglobin 10, platelet count 277. Sodium 134, potassium 3.5, chloride 100, CO2 23, BUN 7 creatinine 0.57. Blood sugar 189. INR 1.1. Magnesium 1.1. Liver function tests within normal limits. Albumin 3.0. Lactic acid 0.9. Contreras virus PCR not detected. Urinalysis clear, trace ketones no sign of infection. Chest x-ray reveals lateral lower lobe pulmonary interstitial infiltrates are increased compared to last exam. No heart failure. Patient is seen today in the emergency center waiting for a bed on the cardiac stepdown unit. Patient has been started on his home medications, continue IV fluids, consult with oncology. 07/21: Patient has been seen by oncology with recommendations for possible in patient CHOP once lipase is improved. Patient had been on a heart healthy diet we will change him back to clear liquids today. He states that yesterday he had severe abdominal pain started approximately 1 hour after he ate turkey or chicken with gravy. He states he had a total of 10 bowel movements yesterday that were all soft, not watery. He denies any bowel movements today. Repeat blood work reveals WBC 5.3, hemoglobin 9.5, platelet count 290. Electrolytes are normal. BUN 8 and creatinine 0.65. Blood blood glucose running between 103 and 135. Calcium 8.3. Liver function tests are normal. patient has been evaluated by therapy with recommendations for home with home care. 07/22: Patient is lying down in bed he stated that" there is fire in my stomach" he has poor appetite,patient is scheduled to receive chemotherapy on Sunday he denies any chest pain, shortness of breath, mid epigastric abdominal pain, no nausea, vomiting , or diarrhea.we will continue to monitor. 07/23: Patient is laying down in bed in no acute distress, is currently on a clear liquid diet, per oncology recommendation, patient is scheduled to go for chemotherapy tomorrow morning, he has been feeling a bit better today, he did have a good bowel movement today, he has no chest pain or shortness breath at this time, he has no abdominal pain, or any burning sensation, his dry eyes are better today, he did sleep well last night. 07/24: Patient has been afebrile, heart rate 73, blood pressure 164/80, pulse ox 90% on room air. Repeat blood work reveals WBC 5.8, hemoglobin 10.2, platelet count 246. Sodium 135, potassium 3.7, chloride 105, CO2 15, BUN 7, creatinine 0.59. Blood sugars running between 89 and 105. Total bilirubin 1, AST 204, alkaline phosphatase 447, total bilirubin 5.1. Patient is scheduled to start chemotherapy today but surprisingly lipase came back at 6500. Patient's nurse will notify oncology.. He is complaining of a little abdominal discomfort, no diarrhea. We were planning to advance diet to full liquids and to regular as tolerated. REVIEW OF SYSTEMS Constitutional: No fever, no chills, no night sweats. No weight change. No weakness, fatigue or lethargy. No daytime sleepiness. HEENT: No headache. No blurred vision or double vision, no loss of vision. No loss of Hearing, no ringing in the ears, no dizziness. No nasal drainage or congestion. No epistaxis. No sore throat. Lungs: No shortness of breath, cough, no sputum production. No wheezing. Cardiovascular: No chest pain, no lower extremity edema. Reports palpitations. No paroxysmal nocturnal dyspnea. No orthopnea. No lightheadedness or dizziness. No syncopal episodes. Abdominal: Reports generalized mild abdominal pain. Reports nausea, no vomiting. No diarrhea. No constipation. No bloody or tarry stools. No loss of appetite. Genitourinary: No dysuria, increased frequency, urgency. No urinary retention. Musculoskeletal: No myalgias. No muscle weakness, no gait dysfunction, no frequent falls. No back pain. No neck pain. Integumentary: No wounds, no lesions. No rash or pruritus. No unusual bruising. No change in hair or nails. Neurologic: No aphasia. No facial droop. No change in mentation. No head injury. No headache. No paralysis. No paresthesia. Psychiatric: No depression is his anniversary of his 's . No anxiety. No mood swings. Endocrine: No abnormal blood sugars. No weight change. No excessive sweating or thirst. No cold intolerance. PHYSICAL EXAMINATION Gen: This is a 77-year-old male. Patient is resting in bed and appears to be in no acute distress. HEENT: Head is atraumatic, normocephalic. Pupils equal, round. Sclerae is anicteric. NECK: Supple. No JVD. No lymphadenopathy. No thyromegaly. LUNGS: Clear to auscultation. No wheezes or rhonchi. No intercostal retraction s. HEART: First heart sound is depressed, second heart sound is normal irregularly irregular, there is JILL 2/6 located at the left sternal border. ABDOMEN: Soft. Bowel sounds are present. No masses. No abdominal tenderness. EXTREMITIES: No pedal edema. No calf tenderness. Dorsalis pedis +2 left. Right-sided [id number]-[id number]-[id number] amputation. NEUROLOGICAL: Patient is awake, alert and oriented x3. Cranial nerves 2 through 12 are grossly intact. ASSESSMENT AND PLAN 1. 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 Patient will be started on chemotherapy tomorrow morning. This is a second cycle since April of this year. 2. Acute kidney injury due to acute tubular necrosis. Patient is status post 500 mL bolus, continue IV fluids of 0.9 normal saline decreased to 50 mL per hour.we will continue to monitor CMP. 3. Abdominal discomfort with nausea most likely secondary to lymphoma and possibly lymphoma invasion that causing his pancreatitis. we will plan for chemotherapy hoping this we will prevent recurrent Pancreatitis 4. 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 5. Paroxysmal atrial fibrillation. Continue patient on eliquis 5 mg twice daily and Toprol-XL 25 mg daily. 6. Hypertenion and hypertensive cardiovascular disease. Continue patient on losartan 25 mg daily and Toprol XL 25 mg po daily, we will continue to monitor BP very closely 7. Hyperlipidemia. Continue Icosapent 2 g oral twice a day. 8. Diabetes mellitus type 2. Continue patient on metformin 500 mg twice daily, start patient on Farxiga 5 mg daily, continue Levemir 18 units at bedtime, add NovoLog scale before meals and at bedtime. 9. Right znigi-onu-acik amputation, stable. Patient is having difficulty ambulating with prosthesis. Consult with PT and OT with recommendations for home with home care 10. Benign prostatic hypertrophy. Monitor for urinary retention. 11. Generalized gout. Continue allopurinol 300 mg twice daily. 12. Gastroesophageal reflux disease and GI prophylaxis. Continue Protonix 40 mg twice daily. 13. DVT prophylaxis. Continue eliquis. 14. Insomnia. we will continue with Melatonin 3 mg po at bedtime. 15. Dry eye. continue refresh tears tid 16. Prognosis is guarded. DISCHARGE PLAN Home with home care. Impression and plan of care have been directed as dictated by the signing physician. Christin Mckeon nurse practitioner acting as scribe for signing physician. Objective - Vital Signs Vital signs: Vital Signs Temp 98.3 F 07/24/22 05:00 Pulse 73 07/24/22 05:00 Resp 18 07/24/22 05:00 BP 164/86 07/24/22 05:00 Pulse Ox 98 07/24/22 05:00 FiO2 Intake & Output 07/23/22 07/24/22 07/24/22 18:59 06:59 18:59 Intake Total 600 590 Balance 600 590 Weight 100.9 kg Intake: Intake, IV Titration 600 Amount Sodium Chloride 0.9% 1, 600 000 ml @ 50 mls/hr IV . Q20H MAX Rx#:[id number] Oral 590 Other: Voiding Method Urinal Bedside Commode Urinal # Voids 1 4 1 - Labs CBC & Chem 7: 07/24/22 06:25 07/24/22 06:25 Labs: Abnormal Lab Results - Last 24 Hours (Table) 07/23/22 07/23/22 07/24/22 Range/Units 07:15 07:15 06:25 RBC 3.38 L 4.05 L (4.40-5.60) X 10*6/uL Hgb 9.2 L 10.2 L (13.0-17.0) g/dL Hct 27.1 L 32.2 L (39.6-50.0) % MCV 79.5 L (80.0-100.0) fL RDW 17.3 H 17.1 H (11.5-14.5) % Lymphocytes # 0.45 L 0.5 L (0.90-5.00) X 10*3/uL Sodium 134 L (135-145) mmol/L Carbon Dioxide 19.7 L (20.0-27.5) mmol/L BUN 7.6 L (9.0-27.0) mg/dL Creatinine (0.66-1.25) mg/dL Calcium 8.5 L (8.7-10.3) mg/dL Magnesium 1.4 L (1.5-2.4) mg/dL AST 59 H (14-35) U/L ALT (4-49) U/L Alkaline Phosphatase 194 H (41-126) U/L Total Protein 5.0 L (6.2-8.2) g/dL Albumin 3.1 L (3.8-4.9) g/dL Lipase 1397 H (14-60) U/L 07/24/22 Range/Units 06:25 RBC (4.40-5.60) X 10*6/uL Hgb (13.0-17.0) g/dL Hct (39.6-50.0) % MCV (80.0-100.0) fL RDW (11.5-14.5) % Lymphocytes # (0.90-5.00) X 10*3/uL Sodium 135 L (135-145) mmol/L Carbon Dioxide 15 L (20.0-27.5) mmol/L BUN 7 L (9.0-27.0) mg/dL Creatinine 0.59 L (0.66-1.25) mg/dL Calcium (8.7-10.3) mg/dL Magnesium (1.5-2.4) mg/dL AST 204 H (14-35) U/L ALT 103 H (4-49) U/L Alkaline Phosphatase 447 H (41-126) U/L Total Protein 5.1 L (6.2-8.2) g/dL Albumin 2.9 L (3.8-4.9) g/dL Lipase (14-60) U/L
[2022-07-24 11:42] LABS: Glucose,Whole Blood 111 mg/dL (70-110)
[2022-07-24] MEDS ORDERED: DOXORUBICIN HCL IV ONE ×2 (15:00)
[2022-07-24] MEDS ORDERED: CYCLOPHOSPHAMIDE IV ONE (15:00)
[2022-07-24] MEDS ORDERED: ONDANSETRON 16 MG in SODIUM CHLORIDE 0.9% 50 ML IVPB ONE (15:00)
[2022-07-24] MEDS ORDERED: SODIUM CHLORIDE 0.9% IV ONE (15:00)
[2022-07-24] MEDS ORDERED: vinCRIStine SULFATE 1 MG in SODIUM CHLORIDE 0.9% 50 ML IV ONE (15:00)
[2022-07-24] MEDS ORDERED: FAMOTIDINE 20 MG/2 ML VIAL IVP ONE (15:00)
[2022-07-24] MEDS ORDERED: APREPITANT 130 MG/18 ML VIAL IVP ONE (15:00)
[2022-07-24] MEDS ORDERED: DEXAMETHASONE SOD PHOSPHATE 10 MG/ML 1 ML VIAL IVP ONE (15:00)
[2022-07-24] MEDS: predniSONE 50 MG TAB PO SCH (15:25)
[2022-07-24 17:11] LABS: Glucose,Whole Blood 129 mg/dL (70-110)
--- NOTE | 2022-07-24 18:18 | P.PN ---
Subjective Progress Note Date: 07/24/22 Principal diagnosis: weakness, abdominal pain In follow-up today patient states is c/o joint pains, he takes a supplement as home that helps, also dry mouth and mild nausea. Denies fever, SOB, vomiting, abd pain, acute changes in bowel or bladder. Objective - Vital Signs Vital signs: Vital Signs Temp 98.3 F 07/24/22 05:00 Pulse 73 07/24/22 05:00 Resp 18 07/24/22 05:00 BP 164/86 07/24/22 05:00 Pulse Ox 98 07/24/22 05:00 FiO2 Intake & Output 07/23/22 07/24/22 07/24/22 18:59 06:59 18:59 Intake Total 600 590 Balance 600 590 Weight 100.9 kg Intake: Intake, IV Titration 600 Amount Sodium Chloride 0.9% 1, 600 000 ml @ 50 mls/hr IV . Q20H MAX Rx#:[id number] Oral 590 Other: Voiding Method Urinal Bedside Commode Bedside Commode Urinal Urinal # Voids 1 4 1 - Constitutional General appearance: Present: cooperative, no acute distress, obese - EENT EENT Comment(s): dry mucus membranes with coated tongue Eyes: Present: anicteric sclerae, EOMI ENT: Present: hearing grossly normal - Respiratory Respiratory: bilateral: CTA - Cardiovascular Rhythm: regular Heart sounds: normal: S1, S2 Abnormal Heart Sounds: Absent: systolic murmur, diastolic murmur, rub, S3 Gallop, S4 Gallop, click, other - Peripheral edema leg Peripheral Edema: right: Other (aka), left: None - Gastrointestinal General gastrointestinal: Present: distended, normal bowel sounds, soft, tenderness - Integumentary Integumentary: Present: normal - Neurologic Neurologic: Present: CNII-XII intact - Musculoskeletal Musculoskeletal: Present: strength equal bilaterally - Psychiatric Psychiatric: Present: A&O x's 3, appropriate affect, intact judgment & insight - Labs CBC & Chem 7: 07/24/22 06:25 07/24/22 06:25 Labs: Abnormal Lab Results - Last 24 Hours (Table) 07/22/22 07/23/22 07/23/22 Range/Units 12:14 07:15 07:15 RBC 3.38 L (4.40-5.60) X 10*6/uL Hgb 9.2 L (13.0-17.0) g/dL Hct 27.1 L (39.6-50.0) % MCV (80.0-100.0) fL RDW 17.3 H (11.5-14.5) % Lymphocytes # 0.45 L (0.90-5.00) X 10*3/uL Sodium 134 L (135-145) mmol/L Carbon Dioxide 19.7 L (20.0-27.5) mmol/L BUN 7.6 L (9.0-27.0) mg/dL Creatinine (0.66-1.25) mg/dL POC Glucose (mg/dL) 113 H (70-110) mg/dL Calcium 8.5 L (8.7-10.3) mg/dL Magnesium 1.4 L (1.5-2.4) mg/dL AST 59 H (14-35) U/L ALT (4-49) U/L Alkaline Phosphatase 194 H (41-126) U/L Total Protein 5.0 L (6.2-8.2) g/dL Albumin 3.1 L (3.8-4.9) g/dL Lipase 1397 H (14-60) U/L 07/24/22 07/24/22 07/24/22 Range/Units 06:25 06:25 06:25 RBC 4.05 L (4.40-5.60) X 10*6/uL Hgb 10.2 L (13.0-17.0) g/dL Hct 32.2 L (39.6-50.0) % MCV 79.5 L (80.0-100.0) fL RDW 17.1 H (11.5-14.5) % Lymphocytes # 0.5 L (0.90-5.00) X 10*3/uL Sodium 135 L (135-145) mmol/L Carbon Dioxide 15 L (20.0-27.5) mmol/L BUN 7 L (9.0-27.0) mg/dL Creatinine 0.59 L (0.66-1.25) mg/dL POC Glucose (mg/dL) (70-110) mg/dL Calcium (8.7-10.3) mg/dL Magnesium (1.5-2.4) mg/dL AST 204 H (14-35) U/L ALT 103 H (4-49) U/L Alkaline Phosphatase 447 H (41-126) U/L Total Protein 5.1 L (6.2-8.2) g/dL Albumin 2.9 L (3.8-4.9) g/dL Lipase 6576 H (14-60) U/L Assessment and Plan (1) Diffuse large B cell lymphoma Current Visit: Yes Status: Acute Code(s): C83.30 - DIFFUSE LARGE B-CELL LYMPHOMA, UNSPECIFIED SITE SNOMED Code(s): 975946441 (2) Hypomagnesemia Current Visit: Yes Status: Acute Code(s): E83.42 - HYPOMAGNESEMIA SNOMED Code(s): 386930014 Plan: Pancreatitis-uncertain if from invasion of lymphoma or obstruction. Lipase has gotten progressively worse since admit, pt is mostly asymptomatic-per his repor ts. LFTs are increasing. CHOP inpt has been decided is the best way to provide care for is patient since he has not been able to stay out of the hospital long enough to receive a treatment. Anticipation is that treatment will help to regress the lymphoma and hopefully stop recurrent pancreatitis. Pt is willing, treatment to start today. Supportive medications ordered. Clear liquids only-do not advance diet Daily weights. Patient's prosthetic is here, he was encouraged to ambulate QID. Daily labs Pt encouraged to have his joint supplement brought from home F/U daily
[2022-07-24 20:06] LABS: Glucose,Whole Blood 127 mg/dL (70-110)
[2022-07-24] MEDS: INSULIN DETEMIR (LEVEMIR) 100 UNIT/ML SYR SQ SCH (20:34)
[2022-07-24] MEDS: MELATONIN 3 MG TABLET PO PRN (20:34)
[2022-07-25] MEDS: SALT AND SODA MOUTHWASH 1,000 ML PO SCH ×6 (00:34→23:15)
[2022-07-25 07:03] LABS: Anisocytosis Slight; Basophils % (A) 0 %; Eosinophils % (A) 0 %; HGB 10.8 gm/dL (13.0-17.5); Hypochromasia Marked; Lymphocytes # (A) 0.3 k/uL (1.0-4.8); Lymphocytes % (A) 7 %; MCH 25.6 pg (25.0-35.0); MCHC 31.8 g/dL (31.0-37.0); MCV 80.5 fL (80.0-100.0); Mean Platelet Volume 7.4; Microcytosis Slight; Monocytes # (A) 0.1 k/uL (0-1.0); Monocytes % (A) 2 %; Neutrophils # (A) 4.3 k/uL (1.3-7.7); Neutrophils % (A) 90 %; Platelet Count 339 k/uL (150-450); Poikilocytosis Slight; RBC 4.22 m/uL (4.30-5.90); RDW 16.8 % (11.5-15.5); WBC 4.8 k/uL (3.8-10.6)
[2022-07-25 07:14] LABS: Glucose,Whole Blood 132 mg/dL (70-110)
[2022-07-25] MEDS: INSULIN ASPART (NovoLOG) 100 UNIT/ML VIAL SQ SCH ×4 (07:17→20:44)
[2022-07-25 07:20] LABS: ALT 104 U/L (4-49); AST 100 U/L (17-59); African American GFR (CKD) >90 (>60 ml/min/1.73 sqM); Albumin 3.3 g/dL (3.5-5.0); Albumin/Globulin Ratio 1.5; Alkaline Phosphatase 472 U/L (38-126); Anion Gap 15 mmol/L; Blood Urea Nitrogen 11 mg/dL (9-20); Calcium 8.8 mg/dL (8.4-10.2); Carbon Dioxide 14 mmol/L (22-30); Chloride 105 mmol/L (98-107); Globulin 2.2 g/dL; Glucose 131 mg/dL (74-99); Lipase 1679 U/L (23-300); Non-African American GFR(CKD) >90 (>60 ml/min/1.73 sqM); Potassium 3.9 mmol/L (3.5-5.1); Sodium 134 mmol/L (137-145); Total Bilirubin 0.6 mg/dL (0.2-1.3); Total Protein 5.5 g/dL (6.3-8.2)
[2022-07-25] MEDS: NON FORMULARY DRUG (Icosapent Ethyl [Icosapent Ethyl] 1 GM Capsule) PO SCH ×2 (09:46→18:24)
[2022-07-25] MEDS: allopurinoL 300 MG TAB PO SCH ×2 (09:46→20:43)
[2022-07-25] MEDS: APIXABAN 5 MG TAB PO SCH ×2 (09:47→20:43)
[2022-07-25] MEDS: DAPAGLIFLOZIN PROPANEDIOL 5 MG TABLET PO SCH (09:48)
[2022-07-25] MEDS: DOCUSATE 100 MG CAP PO SCH ×2 (09:49→20:43)
[2022-07-25] MEDS: LOSARTAN 25 MG TAB PO SCH (09:51)
[2022-07-25] MEDS: metFORMIN 500 MG TAB PO SCH ×2 (09:53→20:43)
[2022-07-25] MEDS: METOPROLOL SUCCINATE (ER) 25 MG TAB.ER.24H PO SCH (09:54)
[2022-07-25] MEDS: PANTOPRAZOLE 40 MG TABLET PO SCH ×2 (09:55→20:43)
[2022-07-25] MEDS: MULTIVITAMINS, THERA 1 EACH TAB PO SCH (09:55)
[2022-07-25] MEDS: MAG HYDROX/AL HYDROX/SIMETH 30 ML, LIDOCAINE VISCOUS 2% 30 ML, diphenhydrAMINE ELIXIR 7... PO SCH ×12 (10:00→22:49)
[2022-07-25 12:06] LABS: Glucose,Whole Blood 144 mg/dL (70-110)
--- NOTE | 2022-07-25 14:13 | P.PN ---
Subjective Progress Note Date: 07/25/22 HISTORY OF PRESENT ILLNESS This is a 77-year-old male patient with past medical history of paroxysmal atrial fibrillation on long-term anticoagulation with eliquis, hypertension, hy perlipidemia, complete heart block status post permanent pacemaker, diabetes mellitus 2, right hiqan-eng-lpcj amputation, non-Hodgkin's lymphoma treated at and recently diagnosed. Patient was hospitalized earlier this month for A. fib with RVR, stabilized and was discharged home. Patient has Mediport in place for chemotherapy and received 1 treatment R CHOP. Patient presented to the hospital with complaints of discomfort in his abdomen but without vomiting or diarrhea. Patient had a fall in his apartment. He was just hospitalized at [facility] and discharged 2 days ago. He has had a repair done on his prosthesis for his right leg but states it is too heavy for him to ambulate with. Patient was found to be afebrile, heart rate 81, blood pressure 144/73, pulse ox 97% on room air. EKG was a paced rhythm without acute ST changes. WBC 5.7, hemoglobin 10, platelet count 277. Sodium 134, potassium 3.5, chloride 100, CO2 23, BUN 7 creatinine 0.57. Blood sugar 189. INR 1.1. Magnesium 1.1. Liver function tests within normal limits. Albumin 3.0. Lactic acid 0.9. Contreras virus PCR not detected. Urinalysis clear, trace ketones no sign of infection. Chest x-ray reveals lateral lower lobe pulmonary interstitial infiltrates are increased compared to last exam. No heart failure. Patient is seen today in the emergency center waiting for a bed on the cardiac stepdown unit. Patient has been started on his home medications, continue IV fluids, consult with oncology. 07/21: Patient has been seen by oncology with recommendations for possible in patient CHOP once lipase is improved. Patient had been on a heart healthy diet we will change him back to clear liquids today. He states that yesterday he had severe abdominal pain started approximately 1 hour after he ate turkey or chicken with gravy. He states he had a total of 10 bowel movements yesterday that were all soft, not watery. He denies any bowel movements today. Repeat blood work reveals WBC 5.3, hemoglobin 9.5, platelet count 290. Electrolytes are normal. BUN 8 and creatinine 0.65. Blood blood glucose running between 103 and 135. Calcium 8.3. Liver function tests are normal. patient has been evaluated by therapy with recommendations for home with home care. 07/22: Patient is lying down in bed he stated that" there is fire in my stomach" he has poor appetite,patient is scheduled to receive chemotherapy on Sunday he denies any chest pain, shortness of breath, mid epigastric abdominal pain, no nausea, vomiting , or diarrhea.we will continue to monitor. 07/23: Patient is laying down in bed in no acute distress, is currently on a clear liquid diet, per oncology recommendation, patient is scheduled to go for chemotherapy tomorrow morning, he has been feeling a bit better today, he did have a good bowel movement today, he has no chest pain or shortness breath at this time, he has no abdominal pain, or any burning sensation, his dry eyes are better today, he did sleep well last night. 07/24: Patient has been afebrile, heart rate 73, blood pressure 164/80, pulse ox 90% on room air. Repeat blood work reveals WBC 5.8, hemoglobin 10.2, platelet count 246. Sodium 135, potassium 3.7, chloride 105, CO2 15, BUN 7, creatinine 0.59. Blood sugars running between 89 and 105. Total bilirubin 1, AST 204, alkaline phosphatase 447, total bilirubin 5.1. Patient is scheduled to start chemotherapy today but surprisingly lipase came back at 6500. Patient's nurse will notify oncology.. He is complaining of a little abdominal discomfort, no diarrhea. We were planning to advance diet to full liquids and to regular as tolerated. 07/25: Patient did she start chemotherapy, CHOP<yesterday and hopes that this will regress the lymphoma and hopefully stop recurrent pancreatitis. Diet back to clear liquids. Patient has been afebrile, heart rate 71, blood pressure 118/64, pulse ox 94% on room air. WBC 4.8, hemoglobin 10.8, platelet count 339. Sodium 134, potassium 3.9, chloride 105, CO2 14, BUN 11 creatinine 0.65. Blood blood glucose running between 127 and 132. Liver function tests continued to rise with total bilirubin 0.6, AST 100, ALT 104, alkaline phosphatase 472. Lipase 1679. Patient is tolerating clear liquid diet. He had denies abdominal pain today, no nausea or vomiting and denies any diarrhea. He states he has not had a bowel movement today. Discussed discharge planning and patient feels that he needs rehab. We will add a consult for Dr. Walls for possible inpatient rehab. REVIEW OF SYSTEMS Constitutional: No fever, no chills, no night sweats. No weight change. No weakness, fatigue or lethargy. No daytime sleepiness. HEENT: No headache. No blurred vision or double vision, no loss of vision. No loss of Hearing, no ringing in the ears, no dizziness. No nasal drainage or congestion. No epistaxis. No sore throat. Lungs: No shortness of breath, cough, no sputum production. No wheezing. Cardiovascular: No chest pain, no lower extremity edema. Reports palpitations. No paroxysmal nocturnal dyspnea. No orthopnea. No lightheadedness or dizziness. No syncopal episodes. Abdominal: Reports generalized mild abdominal pain. Reports nausea, no vomiting. No diarrhea. No constipation. No bloody or tarry stools. No loss of appetite. Genitourinary: No dysuria, increased frequency, urgency. No urinary retention. Musculoskeletal: No myalgias. No muscle weakness, no gait dysfunction, no frequent falls. No back pain. No neck pain. Integumentary: No wounds, no lesions. No rash or pruritus. No unusual bruising. No change in hair or nails. Neurologic: No aphasia. No facial droop. No change in mentation. No head injury. No headache. No paralysis. No paresthesia. Psychiatric: No depression. No anxiety. No mood swings. Endocrine: No abnormal blood sugars. No weight change. No excessive sweating or thirst. No cold intolerance. PHYSICAL EXAMINATION Gen: This is a 77-year-old male. Patient is resting in bed and appears to be in no acute distress. HEENT: Head is atraumatic, normocephalic. Pupils equal, round. Sclerae is anicteric. NECK: Supple. No JVD. No lymphadenopathy. No thyromegaly. LUNGS: Clear to auscultation. No wheezes or rhonchi. No intercostal retractions. HEART: First heart sound is depressed, second heart sound is normal irregularly irregular, there is JILL 2/6 located at the left sternal border. ABDOMEN: Soft. Bowel sounds are present. No masses. No abdominal tenderness. EXTREMITIES: No pedal edema. No calf tenderness. Dorsalis pedis +2 left. Right-sided qrgzk-[id number] amputation. NEUROLOGICAL: Patient is awake, alert and oriented x3. Cranial nerves 2 through 12 are grossly intact. ASSESSMENT AND PLAN 1. 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 Status post chemotherapy 07/24. 2. Acute kidney injury due to acute tubular necrosis. Patient is status post 500 mL bolus, continue IV fluids of 0.9 normal saline decreased to 50 mL per hour.we will continue to monitor CMP. 3. Abdominal discomfort with nausea most likely secondary to lymphoma and possibly lymphoma invasion that causing his pancreatitis. we will plan for chemotherapy hoping this we will prevent recurrent Pancreatitis 4. 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 5. Paroxysmal atrial fibrillation. Continue patient on eliquis 5 mg twice daily and Toprol-XL 25 mg daily. 6. Hypertenion and hypertensive cardiovascular disease. Continue patient on losartan 25 mg daily and Toprol XL 25 mg po daily, we will continue to monitor BP very closely 7. Hyperlipidemia. Continue Icosapent 2 g oral twice a day. 8. Diabetes mellitus type 2. Continue patient on metformin 500 mg twice daily, start patient on Farxiga 5 mg daily, continue Levemir 18 units at bedtime, add NovoLog scale before meals and at bedtime. 9. Right krntc-aww-bptu amputation, stable. Patient is having difficulty ambulating with prosthesis. Consult with PT and OT with recommendations for home with home care 10. Benign prostatic hypertrophy. Monitor for urinary retention. 11. Generalized gout. Continue allopurinol 300 mg twice daily. 12. Gastroesophageal reflux disease and GI prophylaxis. Continue Protonix 40 mg twice daily. 13. DVT prophylaxis. Continue eliquis. 14. Insomnia. we will continue with Melatonin 3 mg po at bedtime. 15. Dry eye. continue refresh tears tid 16. Prognosis is guarded. DISCHARGE PLAN TBD. Consult with Dr. Walls. Impression and plan of care have been directed as dictated by the signing physi cian. Christin Mckeon nurse practitioner acting as scribe for signing physician. Objective - Vital Signs Vital signs: Vital Signs Temp 97.4 F L 07/25/22 04:00 Pulse 71 07/25/22 04:00 Resp 16 07/25/22 04:00 BP 118/64 07/25/22 04:00 Pulse Ox 94 L 07/25/22 04:00 FiO2 Intake & Output 07/24/22 07/25/22 07/25/22 18:59 06:59 18:59 Intake Total 600 Balance 600 Weight 100.9 kg Intake: Intake, IV Titration 600 Amount Sodium Chloride 0.9% 1, 600 000 ml @ 50 mls/hr IV . Q20H [facility] Rx#:[id number] Other: Voiding Method Bedside Commode Bedside Commode Urinal Urinal # Voids 1 3 # Bowel Movements 1 - Labs CBC & Chem 7: 07/25/22 06:43 07/25/22 06:43 Labs: Abnormal Lab Results - Last 24 Hours (Table) 07/22/22 07/24/22 07/24/22 Range/Units 12:14 06:25 11:41 RBC (4.30-5.90) m/uL Hgb (13.0-17.5) gm/dL Hct (39.0-53.0) % RDW (11.5-15.5) % Lymphocytes # (1.0-4.8) k/uL Sodium (137-145) mmol/L Carbon Dioxide (22-30) mmol/L Creatinine (0.66-1.25) mg/dL Glucose (74-99) mg/dL POC Glucose (mg/dL) 113 H 111 H (70-110) mg/dL AST (17-59) U/L ALT (4-49) U/L Alkaline Phosphatase (38-126) U/L Total Protein (6.3-8.2) g/dL Albumin (3.5-5.0) g/dL Lipase 6576 H (23-300) U/L 07/24/22 07/24/22 07/25/22 Range/Units 17:10 20:04 06:43 RBC (4.30-5.90) m/uL Hgb (13.0-17.5) gm/dL Hct (39.0-53.0) % RDW (11.5-15.5) % Lymphocytes # (1.0-4.8) k/uL Sodium 134 L (137-145) mmol/L Carbon Dioxide 14 L (22-30) mmol/L Creatinine 0.65 L (0.66-1.25) mg/dL Glucose 131 H (74-99) mg/dL POC Glucose (mg/dL) 129 H 127 H (70-110) mg/dL AST 100 H (17-59) U/L ALT 104 H (4-49) U/L Alkaline Phosphatase 472 H (38-126) U/L Total Protein 5.5 L (6.3-8.2) g/dL Albumin 3.3 L (3.5-5.0) g/dL Lipase 1679 H (23-300) U/L 07/25/22 07/25/22 Range/Units 06:43 07:13 RBC 4.22 L (4.30-5.90) m/uL Hgb 10.8 L (13.0-17.5) gm/dL Hct 34.0 L (39.0-53.0) % RDW 16.8 H (11.5-15.5) % Lymphocytes # 0.3 L (1.0-4.8) k/uL Sodium (137-145) mmol/L Carbon Dioxide (22-30) mmol/L Creatinine (0.66-1.25) mg/dL Glucose (74-99) mg/dL POC Glucose (mg/dL) 132 H (70-110) mg/dL AST (17-59) U/L ALT (4-49) U/L Alkaline Phosphatase (38-126) U/L Total Protein (6.3-8.2) g/dL Albumin (3.5-5.0) g/dL Lipase (23-300) U/L
[2022-07-25] MEDS: predniSONE 50 MG TAB PO SCH (15:35)
--- NOTE | 2022-07-25 17:02 | P.CONS ---
History of Present Illness - Chief Complaint Medical debility - History of Present Illness I had the opportunity to see patient for inpatient rehab consultation with regard to medical debility. Patient admitted to Dr. Segura July 19 and HL. Admitted with myalgia, anemia, hypomagnesemia. Chest x-ray with left lower lobe infiltrates increased from previous x-ray. Seen by oncology for large B celllymphoma. His started therapy. PT reports supervision for bed mobility, minimal assistance for transfers and for gait 40 feet, axillary crutches, one rest break. Balance poor. OT reports independent for feeding, supervision for grooming and upper dressing, minimal assistance for lower dressing, bathing and functional debility/transfers. Moderate assistance for toileting. Previous functional history as elicited from patient: 77-year-old right-handed white male who is single lives in second-floor apartment alone. Describes independent with own cooking, laundry, driving, tub bath and gait with standard cane. Reports that his car is broke. History smoking and drinking in the remote past. Old right AKA. Review of Systems Review of systems: ENT: Denies sneezes or discharge. Eyes: Denies discharge or photophobia. Cardiac: Denies chest pain or palpitation. Pulmonary: Denies cough or shortness of breath. Gastrointestinal: Denies nausea, emesis, constipation, diarrhea. Genitourinary: Denies discharge or frequency. Musculoskeletal: Denies muscle or bone aches. old right AKA. Neurologic: general weakness. Endocrine: Denies shakes or sweats. Oncology: Denies cancers. Dermatologic: Denies rash, itching, pruritus. ALLERGY/immunology: Denies sneezes, rashes. Past Medical History Past Medical History: Atrial Fibrillation, Cancer, Diabetes Mellitus, Hyperlipidemia, Hypertension Additional Past Medical History / Comment(s): Non-Hodgkin's lymphoma, recent chemo port placed. History of Any Multi-Drug Resistant Organisms: None Reported Past Surgical History: Cholecystectomy, Orthopedic Surgery, Pacemaker Additional Past Surgical History / Comment(s): right aka due to accident Past Anesthesia/Blood Transfusion Reactions: No Reported Reaction Additional Past Anesthesia/Blood Transfusion Reaction / Comm: na Type of Cardiac Device: Permanent Pacemaker Device Placement Date:: December 16, 2021 Past Psychological History: No Psychological Hx Reported Smoking Status: Never smoker Past Alcohol Use History: None Reported Past Drug Use History: None Reported - Past Family History Father Family Medical History: Cancer Additional Family Medical History / Comment(s): Pt states father was heavy smoker and developed throat cancer Mother Family Medical History: Hypertension Additional Family Medical History / Comment(s): Pt states mother was healthy and lived to Medications and Allergies Home Medications Medication Instructions Recorded Confirmed Type Multivit-Min/FA/Lycopen/Lutein 1 tab PO DAILY 12/14/21 07/19/22 History [Centrum Silver Tablet] Apixaban [Eliquis] 5 mg PO BID #0 12/16/21 07/19/22 Rx metFORMIN HCL [Glucophage] 500 mg PO BID #0 12/16/21 07/19/22 Rx Docusate [Colace] 100 mg PO BID 06/20/22 07/19/22 History Glucosam/Chond/Hyalu/Cf Borate 2 tab PO DAILY 06/20/22 07/19/22 History [Move Free Joint Health Tablet] Prochlorperazine [Compazine] 10 mg PO Q6H PRN 06/20/22 07/19/22 History allopurinoL [Zyloprim] 300 mg PO BID 06/20/22 07/19/22 History icosapent ethyL [Icosapent Ethyl] 2 gm PO BID-W/MEALS 06/20/22 07/19/22 History Pantoprazole [Protonix] 40 mg PO BID #60 tab 06/21/22 07/19/22 Rx Dapagliflozin Propanediol [Farxiga] 5 mg PO DAILY #30 tab 06/24/22 07/19/22 Rx Insulin Detemir [Levemir Flextouch 18 units SQ HS #2 pen 06/24/22 07/19/22 Rx Pen] Losartan [Cozaar] 25 mg PO DAILY #90 tab 06/24/22 07/19/22 Rx Metoprolol Succinate (ER) [Toprol 25 mg PO DAILY #90 tab 06/24/22 07/19/22 Rx XL] Allergies Allergy/AdvReac Type Severity Reaction Status Date / Time No Known Allergies Allergy Verified 07/19/22 17:07 Physical Exam Vitals: Vital Signs Temp Pulse Resp BP BP Pulse Ox 07/25/22 15:04 97.9 F 76 20 153/72 07/25/22 13:00 97.5 F L 68 18 174/68 98 07/25/22 09:30 97.7 F 72 154/69 07/25/22 08:20 97.6 F 73 18 153/73 98 07/25/22 04:00 97.4 F L 71 16 118/64 94 L 07/24/22 23:48 97 F L 68 16 122/69 97 07/24/22 20:00 97.7 F 72 16 152/73 96 Intake and Output 07/25/22 07/25/22 07/25/22 06:59 14:59 22:59 Intake Total 600 240 Balance 600 240 Intake: Intake, IV Titration 600 Amount Sodium Chloride 0.9% 1, 600 000 ml @ 50 mls/hr IV . Q20H [facility] Rx#:[id number] Oral 240 Other: Voiding Method Bedside Commode Urinal # Voids 3 Weight 100.9 kg Skin: Good color, texture, turgor. General: Medium build and comfortable appearance. Head: Normocephalic, atraumatic. Eyes: Symmetric. Pupils equal round. Ears: Symmetric. Hearing within normal limits. Mouth: Clear. Neck: Supple. Carotid without bruit. Cardiac: Regular rate and rhythm. Lungs: Clear anteriorly and posteriorly. Abdomen: Soft active nontender. Extremities: Normal tone.right hip clean and dressed. Neurological: Mental status: Alert, cooperative, pleasant. Cranial nerves: Symmetric facial tone and trapezius. Motor: Normal strength and isolation both arms and left leg. Giveaway weakness right leg especially at hip. Sensation: Intact throughout. DTRs: Symmetric and equal throughout. Mobility: did not attempt to sit or stand at this time. Results CBC & Chem 7: 07/25/22 06:43 07/25/22 06:43 Labs: Abnormal Lab Results - Last 24 Hours (Table) 07/24/22 07/24/22 07/25/22 Range/Units 17:10 20:04 06:43 RBC (4.30-5.90) m/uL Hgb (13.0-17.5) gm/dL Hct (39.0-53.0) % RDW (11.5-15.5) % Lymphocytes # (1.0-4.8) k/uL Sodium 134 L (137-145) mmol/L Carbon Dioxide 14 L (22-30) mmol/L Creatinine 0.65 L (0.66-1.25) mg/dL Glucose 131 H (74-99) mg/dL POC Glucose (mg/dL) 129 H 127 H (70-110) mg/dL AST 100 H (17-59) U/L ALT 104 H (4-49) U/L Alkaline Phosphatase 472 H (38-126) U/L Total Protein 5.5 L (6.3-8.2) g/dL Albumin 3.3 L (3.5-5.0) g/dL Lipase 1679 H (23-300) U/L 07/25/22 07/25/22 07/25/22 Range/Units 06:43 07:13 12:02 RBC 4.22 L (4.30-5.90) m/uL Hgb 10.8 L (13.0-17.5) gm/dL Hct 34.0 L (39.0-53.0) % RDW 16.8 H (11.5-15.5) % Lymphocytes # 0.3 L (1.0-4.8) k/uL Sodium (137-145) mmol/L Carbon Dioxide (22-30) mmol/L Creatinine (0.66-1.25) mg/dL Glucose (74-99) mg/dL POC Glucose (mg/dL) 132 H 144 H (70-110) mg/dL AST (17-59) U/L ALT (4-49) U/L Alkaline Phosphatase (38-126) U/L Total Protein (6.3-8.2) g/dL Albumin (3.5-5.0) g/dL Lipase (23-300) U/L Assessment and Plan (1) Diffuse large B cell lymphoma Current Visit: Yes Status: Acute Code(s): C83.30 - DIFFUSE LARGE B-CELL LYMPHOMA, UNSPECIFIED SITE SNOMED Code(s): 488819428 (2) Hypomagnesemia Current Visit: Yes Status: Acute Code(s): E83.42 - HYPOMAGNESEMIA SNOMED Code(s): 494166086 (3) Atrial fibrillation with RVR Current Visit: No Status: Acute Code(s): I48.91 - UNSPECIFIED ATRIAL FIBRILLATION SNOMED Code(s): 312441338157069 Plan: comments and plan: At this time safety concerns are noted and patient is demonstrates ability to tolerate and benefit from therapies. Patient currently undergoing chemotherapy unsure rehab unit will be able to handle patient's precautions appropriately. Must investigate. Also noted patient has AKA, right, old.
[2022-07-25 17:15] LABS: Glucose,Whole Blood 153 mg/dL (70-110)
[2022-07-25] MEDS: SODIUM CHLORIDE 0.9% 1,000 ML IV SCH (19:14)
--- NOTE | 2022-07-25 19:54 | P.PN ---
Subjective Progress Note Date: 07/25/22 Principal diagnosis: Weakness, abdominal pain. DLBCL In follow-up today patient is trying to work with PT/OT. He admits he is pretty weak. Denies fever, SOB, nausea, vomiting, abd pain, acute changes in bowel or bladder. He is tolerating clear liquids, lipase is down to 1679. He denies any acute SE from chemo. Objective - Vital Signs Vital signs: Vital Signs Temp 97.7 F 07/25/22 09:30 Pulse 72 07/25/22 09:30 Resp 18 07/25/22 08:20 BP 154/69 07/25/22 09:30 Pulse Ox 98 07/25/22 08:20 FiO2 Intake & Output 07/24/22 07/25/22 07/25/22 18:59 06:59 18:59 Intake Total 600 Balance 600 Weight 100.9 kg Intake: Intake, IV Titration 600 Amount Sodium Chloride 0.9% 1, 600 000 ml @ 50 mls/hr IV . Q20H [facility] Rx#:[id number] Other: Voiding Method Bedside Commode Bedside Commode Bedside Commode Urinal Urinal Urinal # Voids 1 3 # Bowel Movements 1 - Constitutional General appearance: Present: cooperative, no acute distress, obese - EENT EENT Comment(s): dry mouth Eyes: Present: anicteric sclerae, EOMI ENT: Present: hearing grossly normal, normal oropharynx - Respiratory Respiratory: bilateral: CTA - Cardiovascular Rhythm: regular Heart sounds: normal: S1, S2 Abnormal Heart Sounds: Absent: systolic murmur, diastolic murmur, rub, S3 Gallop, S4 Gallop, click, other - Gastrointestinal General gastrointestinal: Present: normal bowel sounds, soft. Absent: absent bowel sounds, decreased bowel sounds, distended, hepatomegaly, hyperactive bowel sounds, organomegaly, rigid, scaphoid, splenomegaly, tenderness, umbilical hernia, ventral hernia - Integumentary Integumentary: Present: normal - Neurologic Neurologic: Present: CNII-XII intact - Musculoskeletal Musculoskeletal: Present: generalized weakness - Psychiatric Psychiatric: Present: A&O x's 3, appropriate affect, intact judgment & insight - Labs CBC & Chem 7: 07/25/22 06:43 07/25/22 06:43 Labs: Abnormal Lab Results - Last 24 Hours (Table) 07/24/22 07/24/22 07/25/22 Range/Units 17:10 20:04 06:43 RBC (4.30-5.90) m/uL Hgb (13.0-17.5) gm/dL Hct (39.0-53.0) % RDW (11.5-15.5) % Lymphocytes # (1.0-4.8) k/uL Sodium 134 L (137-145) mmol/L Carbon Dioxide 14 L (22-30) mmol/L Creatinine 0.65 L (0.66-1.25) mg/dL Glucose 131 H (74-99) mg/dL POC Glucose (mg/dL) 129 H 127 H (70-110) mg/dL AST 100 H (17-59) U/L ALT 104 H (4-49) U/L Alkaline Phosphatase 472 H (38-126) U/L Total Protein 5.5 L (6.3-8.2) g/dL Albumin 3.3 L (3.5-5.0) g/dL Lipase 1679 H (23-300) U/L 07/25/22 07/25/22 07/25/22 Range/Units 06:43 07:13 12:02 RBC 4.22 L (4.30-5.90) m/uL Hgb 10.8 L (13.0-17.5) gm/dL Hct 34.0 L (39.0-53.0) % RDW 16.8 H (11.5-15.5) % Lymphocytes # 0.3 L (1.0-4.8) k/uL Sodium (137-145) mmol/L Carbon Dioxide (22-30) mmol/L Creatinine (0.66-1.25) mg/dL Glucose (74-99) mg/dL POC Glucose (mg/dL) 132 H 144 H (70-110) mg/dL AST (17-59) U/L ALT (4-49) U/L Alkaline Phosphatase (38-126) U/L Total Protein (6.3-8.2) g/dL Albumin (3.5-5.0) g/dL Lipase (23-300) U/L Assessment and Plan (1) Diffuse large B cell lymphoma Current Visit: Yes Status: Acute Code(s): C83.30 - DIFFUSE LARGE B-CELL LYMPHOMA, UNSPECIFIED SITE SNOMED Code(s): 946867248 (2) Hypomagnesemia Current Visit: Yes Status: Acute Code(s): E83.42 - HYPOMAGNESEMIA SNOMED Code(s): 813119344 Plan: Pancreatitis-uncertain if from invasion of lymphoma or obstruction. Lipase today has significantly improved. Pt tolerating clear liquids. It was discussed with him at length, that he needs to maintain the liquid diet for maybe 10-14 days, to give the chemo a chance to work. Hope is that the pancreatitis will resolve. Discussed with RN who will provide pt with written materials as to what he should and should not consume over the next 2 weeks. LFTs are stable today. Supportive medications ordered. Clear liquids only-do not advance diet Cont daily weights. Patient's prosthetic is here, he was encouraged to ambulate QID. Goal is to walk around the bed. Discussed with Case Mgmt meeting with pt to encourage him to hve home care and PO/OT at home if able Anticipate pt will be ready for discharge in the next 1-2 days. F/U daily
[2022-07-25 20:24] LABS: Glucose,Whole Blood 137 mg/dL (70-110)
[2022-07-25] MEDS: INSULIN DETEMIR (LEVEMIR) 100 UNIT/ML SYR SQ SCH (20:43)
[2022-07-25] MEDS: MELATONIN 3 MG TABLET PO PRN (20:43)
[2022-07-26] MEDS: NON FORMULARY DRUG (Icosapent Ethyl [Icosapent Ethyl] 1 GM Capsule) PO SCH ×2 (05:50→15:21)
[2022-07-26 06:02] LABS: Anisocytosis Slight; Basophils % (A) 0 %; Eosinophils % (A) 0 %; HCT 31.7 % (39.0-53.0); HGB 10.2 gm/dL (13.0-17.5); Hypochromasia Marked; Lymphocytes # (A) 0.5 k/uL (1.0-4.8); Lymphocytes % (A) 5 %; MCH 25.4 pg (25.0-35.0); MCHC 32.1 g/dL (31.0-37.0); MCV 79.2 fL (80.0-100.0); Mean Platelet Volume 7.7; Microcytosis Slight; Monocytes # (A) 0.5 k/uL (0-1.0); Monocytes % (A) 5 %; Neutrophils # (A) 8.7 k/uL (1.3-7.7); Neutrophils % (A) 90 %; Platelet Count 373 k/uL (150-450); Poikilocytosis Slight; RBC 4.01 m/uL (4.30-5.90); RDW 17.3 % (11.5-15.5); WBC 9.6 k/uL (3.8-10.6)
[2022-07-26] MEDS: SALT AND SODA MOUTHWASH 1,000 ML PO SCH ×4 (06:04→22:06)
[2022-07-26 07:13] LABS: Glucose,Whole Blood 130 mg/dL (70-110)
[2022-07-26] MEDS: INSULIN ASPART (NovoLOG) 100 UNIT/ML VIAL SQ SCH ×4 (07:26→22:05)
--- NOTE | 2022-07-26 08:41 | P.PN ---
Subjective Progress Note Date: 07/26/22 HISTORY OF PRESENT ILLNESS This is a 77-year-old male patient with past medical history of paroxysmal atrial fibrillation on long-term anticoagulation with eliquis, hypertension, hy perlipidemia, complete heart block status post permanent pacemaker, diabetes mellitus 2, right ohhox-mrl-udij amputation, non-Hodgkin's lymphoma treated at [facility] and recently diagnosed. Patient was hospitalized earlier this month for A. fib with RVR, stabilized and was discharged home. Patient has Mediport in place for chemotherapy and received 1 treatment R CHOP. Patient presented to the hospital with complaints of discomfort in his abdomen but without vomiting or diarrhea. Patient had a fall in his apartment. He was just hospitalized at [facility] and discharged 2 days ago. He has had a repair done on his prosthesis for his right leg but states it is too heavy for him to ambulate with. Patient was found to be afebrile, heart rate 81, blood pressure 144/73, pulse ox 97% on room air. EKG was a paced rhythm without acute ST changes. WBC 5.7, hemoglobin 10, platelet count 277. Sodium 134, potassium 3.5, chloride 100, CO2 23, BUN 7 creatinine 0.57. Blood sugar 189. INR 1.1. Magnesium 1.1. Liver function tests within normal limits. Albumin 3.0. Lactic acid 0.9. Contreras virus PCR not detected. Urinalysis clear, trace ketones no sign of infection. Chest x-ray reveals lateral lower lobe pulmonary interstitial infiltrates are increased compared to last exam. No heart failure. Patient is seen today in the emergency center waiting for a bed on the cardiac stepdown unit. Patient has been started on his home medications, continue IV fluids, consult with oncology. 07/21: Patient has been seen by oncology with recommendations for possible in patient CHOP once lipase is improved. Patient had been on a heart healthy diet we will change him back to clear liquids today. He states that yesterday he had severe abdominal pain started approximately 1 hour after he ate turkey or chicken with gravy. He states he had a total of 10 bowel movements yesterday that were all soft, not watery. He denies any bowel movements today. Repeat blood work reveals WBC 5.3, hemoglobin 9.5, platelet count 290. Electrolytes are normal. BUN 8 and creatinine 0.65. Blood blood glucose running between 103 and 135. Calcium 8.3. Liver function tests are normal. patient has been evaluated by therapy with recommendations for home with home care. 07/22: Patient is lying down in bed he stated that" there is fire in my stomach" he has poor appetite,patient is scheduled to receive chemotherapy on Sunday he denies any chest pain, shortness of breath, mid epigastric abdominal pain, no nausea, vomiting , or diarrhea.we will continue to monitor. 07/23: Patient is laying down in bed in no acute distress, is currently on a clear liquid diet, per oncology recommendation, patient is scheduled to go for chemotherapy tomorrow morning, he has been feeling a bit better today, he did have a good bowel movement today, he has no chest pain or shortness breath at this time, he has no abdominal pain, or any burning sensation, his dry eyes are better today, he did sleep well last night. 07/24: Patient has been afebrile, heart rate 73, blood pressure 164/80, pulse ox 90% on room air. Repeat blood work reveals WBC 5.8, hemoglobin 10.2, platelet count 246. Sodium 135, potassium 3.7, chloride 105, CO2 15, BUN 7, creatinine 0.59. Blood sugars running between 89 and 105. Total bilirubin 1, AST 204, alkaline phosphatase 447, total bilirubin 5.1. Patient is scheduled to start chemotherapy today but surprisingly lipase came back at 6500. Patient's nurse will notify oncology.. He is complaining of a little abdominal discomfort, no diarrhea. We were planning to advance diet to full liquids and to regular as tolerated. 07/25: Patient did she start chemotherapy, CHOP<yesterday and hopes that this will regress the lymphoma and hopefully stop recurrent pancreatitis. Diet back to clear liquids. Patient has been afebrile, heart rate 71, blood pressure 118/64, pulse ox 94% on room air. WBC 4.8, hemoglobin 10.8, platelet count 339. Sodium 134, potassium 3.9, chloride 105, CO2 14, BUN 11 creatinine 0.65. Blood blood glucose running between 127 and 132. Liver function tests continued to rise with total bilirubin 0.6, AST 100, ALT 104, alkaline phosphatase 472. Lipase 1679. Patient is tolerating clear liquid diet. He had denies abdominal pain today, no nausea or vomiting and denies any diarrhea. He states he has not had a bowel movement today. Discussed discharge planning and patient feels that he needs rehab. We will add a consult for Dr. Walls for possible inpatient rehab. 07/26: Oncology is recommending a liquid diet for 10-14 days to give the chemo a chance to work. Plan is for chemo again in 3 weeks. We hope the patient can go to rehab for 3 weeks and then be discharged home in order to get his chemotherapy. We expect the patient will do well in the rehab unit. Patient has been seen by Dr. Walls and patient may benefit from inpatient rehab but concern about handling the patient's precautions appropriately. Patient remains afebrile, heart rate 74, blood pressure 122/63, pulse ox 90% on room air. WBC 9.6, hemoglobin 10.2 and platelet count 373. Blood blood glucose running between 130-153. REVIEW OF SYSTEMS Constitutional: No fever, no chills, no night sweats. No weight change. No weakness, fatigue or lethargy. No daytime sleepiness. HEENT: No headache. No blurred vision or double vision, no loss of vision. No loss of Hearing, no ringing in the ears, no dizziness. No nasal drainage or congestion. No epistaxis. No sore throat. Lungs: No shortness of breath, cough, no sputum production. No wheezing. Cardiovascular: No chest pain, no lower extremity edema. Reports palpitations. No paroxysmal nocturnal dyspnea. No orthopnea. No lightheadedness or dizziness. No syncopal episodes. Abdominal: Reports generalized mild abdominal pain. Reports nausea, no vomiting. No diarrhea. No constipation. No bloody or tarry stools. No loss of appetite. Genitourinary: No dysuria, increased frequency, urgency. No urinary retention. Musculoskeletal: No myalgias. No muscle weakness, no gait dysfunction, no frequent falls. No back pain. No neck pain. Integumentary: No wounds, no lesions. No rash or pruritus. No unusual bruising. No change in hair or nails. Neurologic: No aphasia. No facial droop. No change in mentation. No head injury. No headache. No paralysis. No paresthesia. Psychiatric: No depression. No anxiety. No mood swings. Endocrine: Noted mildly abnormal blood sugars. No weight change. No excessive sweating or thirst. No cold intolerance. PHYSICAL EXAMINATION Gen: This is a 77-year-old male. Patient is resting in bed and appears to be in no acute distress. HEENT: Head is atraumatic, normocephalic. Pupils equal, round. Sclerae is anicteric. NECK: Supple. No JVD. No lymphadenopathy. No thyromegaly. LUNGS: Clear to auscultation. No wheezes or rhonchi. No intercostal retractions. HEART: First heart sound is depressed, second heart sound is normal irregularly irregular, there is JILL 2/6 located at the left sternal border. ABDOMEN: Soft. Bowel sounds are present. No masses. No abdominal tenderness. EXTREMITIES: No pedal edema. No calf tenderness. Dorsalis pedis +2 left. Right-sided ourlu-tne-wnsp amputation. NEUROLOGICAL: Patient is awake, alert and oriented x3. Cranial nerves 2 through 12 are grossly intact. ASSESSMENT AND PLAN 1. 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 Status post chemotherapy 07/24. 2. Acute kidney injury due to acute tubular necrosis. Patient is status post 500 mL bolus, continue IV fluids of 0.9 normal saline decreased to 50 mL per hour.we will continue to monitor CMP. 3. Abdominal discomfort with nausea most likely secondary to lymphoma and possibly lymphoma invasion that causing his pancreatitis. Patient is status post chemotherapy, monitor lipase levels, continue clear liquid diet for 14 days. 4. 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 5. Paroxysmal atrial fibrillation. Continue patient on eliquis 5 mg twice daily and Toprol-XL 25 mg daily. 6. Hypertenion and hypertensive cardiovascular disease. Continue patient on losartan 25 mg daily and Toprol XL 25 mg po daily, we will continue to monitor BP very closely 7. Hyperlipidemia. Continue Icosapent 2 g oral twice a day. 8. Diabetes mellitus type 2. Continue patient on metformin 500 mg twice da sandy, start patient on Farxiga 5 mg daily, continue Levemir 18 units at bedtime, add NovoLog scale before meals and at bedtime. 9. Right shojc-svy-zztk amputation, stable. Patient is having difficulty ambulating with prosthesis. Consult with PT and OT with recommendations for home with home care 10. Benign prostatic hypertrophy. Monitor for urinary retention. 11. Generalized gout. Continue allopurinol 300 mg twice daily. 12. Gastroesophageal reflux disease and GI prophylaxis. Continue Protonix 40 mg twice daily. 13. DVT prophylaxis. Continue eliquis. 14. Insomnia. we will continue with Melatonin 3 mg po at bedtime. 15. Dry eye. continue refresh tears tid 16. Prognosis is guarded. DISCHARGE PLAN TBD. Consult with Dr. Walls. Impression and plan of care have been directed as dictated by the signing physician. Christin Mckeon nurse practitioner acting as scribe for signing physician. Objective - Vital Signs Vital signs: Vital Signs Temp 97.4 F L 07/26/22 05:00 Pulse 74 07/26/22 05:00 Resp 16 07/26/22 05:00 BP 122/63 07/26/22 05:00 Pulse Ox 98 07/26/22 05:00 FiO2 Intake & Output 07/25/22 07/26/22 07/26/22 18:59 06:59 18:59 Intake Total 358 Balance 358 Weight 100.8 kg Intake: Oral 358 Other: Voiding Method Bedside Commode Bedside Commode Urinal Urinal # Voids 3 - Labs CBC & Chem 7: 07/26/22 05:24 07/25/22 06:43 Labs: Abnormal Lab Results - Last 24 Hours (Table) 07/25/22 07/25/22 07/25/22 Range/Units 12:02 17:13 20:22 RBC (4.30-5.90) m/uL Hgb (13.0-17.5) gm/dL Hct (39.0-53.0) % MCV (80.0-100.0) fL RDW (11.5-15.5) % Neutrophils # (1.3-7.7) k/uL Lymphocytes # (1.0-4.8) k/uL POC Glucose (mg/dL) 144 H 153 H 137 H (70-110) mg/dL 07/26/22 07/26/22 Range/Units 05:24 07:12 RBC 4.01 L (4.30-5.90) m/uL Hgb 10.2 L (13.0-17.5) gm/dL Hct 31.7 L (39.0-53.0) % MCV 79.2 L (80.0-100.0) fL RDW 17.3 H (11.5-15.5) % Neutrophils # 8.7 H (1.3-7.7) k/uL Lymphocytes # 0.5 L (1.0-4.8) k/uL POC Glucose (mg/dL) 130 H (70-110) mg/dL
--- NOTE | 2022-07-26 08:54 | P.DS ---
Providers Date of admission: 07/19/22 20:44 Expected date of discharge: 07/27/22 Attending physician: Sophie Segura Consults: 07/19/22 20:43 Consult Physician Routine Consulting Provider: Jaye Almazan Consult Reason/Comments: lymphoma Do you want consulting provider notified?: Yes 07/25/22 13:32 Consult Physician Routine Consulting Provider: Inocencio Walls Consult Reason/Comments: in pt rehab Do you want consulting provider notified?: Yes Primary care physician: Physician Nonstaff Hospital Course: HISTORY OF PRESENT ILLNESS This is a 77-year-old male patient with past medical history of paroxysmal atrial fibrillation on long-term anticoagulation with eliquis, hypertension, hyperlipidemia, complete heart block status post permanent pacemaker, diabetes mellitus 2, right lweiq-vch-lesr amputation, non-Hodgkin's lymphoma treated at [facility] and recently diagnosed. Patient was hospitalized earlier this month for A. fib with RVR, stabilized and was discharged home. Patient has Mediport in place for chemotherapy and received 1 treatment R CHOP. Patient presented to the hospital with complaints of discomfort in his abdomen but wi thout vomiting or diarrhea. Patient had a fall in his apartment. He was just hospitalized at [facility] and discharged 2 days ago. He has had a repair done on his prosthesis for his right leg but states it is too heavy for him to ambulate with. Patient was found to be afebrile, heart rate 81, blood pressure 144/73, pulse ox 97% on room air. EKG was a paced rhythm without acute ST changes. WBC 5.7, hemoglobin 10, platelet count 277. Sodium 134, potassium 3.5, chloride 100, CO2 23, BUN 7 creatinine 0.57. Blood sugar 189. INR 1.1. Magnesium 1.1. Liver function tests within normal limits. Albumin 3.0. Lactic acid 0.9. Contreras virus PCR not detected. Urinalysis clear, trace ketones no sign of infection. Chest x-ray reveals lateral lower lobe pulmonary interstitial infiltrates are increased compared to last exam. No heart failure. Patient is seen today in the emergency center waiting for a bed on the cardiac stepdown unit. Patient has been started on his home medications, continue IV fluids, consult with oncology. 07/21: Patient has been seen by oncology with recommendations for possible inpatient CHOP once lipase is improved. Patient had been on a heart healthy diet we will change him back to clear liquids today. He states that yesterday he had severe abdominal pain started approximately 1 hour after he ate turkey or chicken with gravy. He states he had a total of 10 bowel movements yesterday that were all soft, not watery. He denies any bowel movements today. Repeat blood work reveals WBC 5.3, hemoglobin 9.5, platelet count 290. Electrolytes are normal. BUN 8 and creatinine 0.65. Blood blood glucose running between 103 and 135. Calcium 8.3. Liver function tests are normal. patient has been evaluated by therapy with recommendations for home with home care. 07/22: Patient is lying down in bed he stated that" there is fire in my stomach" he has poor appetite,patient is scheduled to receive chemotherapy on Sunday he denies any chest pain, shortness of breath, mid epigastric abdominal pain, no nausea, vomiting , or diarrhea.we will continue to monitor. 07/23: Patient is laying down in bed in no acute distress, is currently on a clear liquid diet, per oncology recommendation, patient is scheduled to go for chemotherapy tomorrow morning, he has been feeling a bit better today, he did have a good bowel movement today, he has no chest pain or shortness breath at this time, he has no abdominal pain, or any burning sensation, his dry eyes are better today, he did sleep well last night. 07/24: Patient has been afebrile, heart rate 73, blood pressure 164/80, pulse ox 90% on room air. Repeat blood work reveals WBC 5.8, hemoglobin 10.2, platelet count 246. Sodium 135, potassium 3.7, chloride 105, CO2 15, BUN 7, creatinine 0.59. Blood sugars running between 89 and 105. Total bilirubin 1, AST 204, alkaline phosphatase 447, total bilirubin 5.1. Patient is scheduled to start chemotherapy today but surprisingly lipase came back at 6500. Patient's nurse will notify oncology.. He is complaining of a little abdominal discomfort, no diarrhea. We were planning to advance diet to full liquids and to regular as tolerated. 07/25: Patient did she start chemotherapy, CHOP<yesterday and hopes that this will regress the lymphoma and hopefully stop recurrent pancreatitis. Diet back to clear liquids. Patient has been afebrile, heart rate 71, blood pressure 118/64, pulse ox 94% on room air. WBC 4.8, hemoglobin 10.8, platelet count 339. Sodium 134, potassium 3.9, chloride 105, CO2 14, BUN 11 creatinine 0.65. Blood blood glucose running between 127 and 132. Liver function tests continued to rise with total bilirubin 0.6, AST 100, ALT 104, alkaline phosphatase 472. Lipase 1679. Patient is tolerating clear liquid diet. He had denies abdominal pain today, no nausea or vomiting and denies any diarrhea. He states he has not had a bowel movement today. Discussed discharge planning and patient feels that he needs rehab. We will add a consult for Dr. Walls for possible inpatient rehab. 07/26: Oncology is recommending a liquid diet for 10-14 days to give the chemo a chance to work. Plan is for chemo again in 3 weeks. We hope the patient can go to rehab for 3 weeks and then be discharged home in order to get his chemotherapy. We expect the patient will do well in the rehab unit. Patient has been seen by Dr. Walls and patient may benefit from inpatient rehab but concern about handling the patient's precautions appropriately. Patient remains afebrile, heart rate 74, blood pressure 122/63, pulse ox 90% on room air. WBC 9.6, hemoglobin 10.2 and platelet count 373. Blood blood glucose running between 130-153. Insurance denied authorization for IP rehab. Patient agreeable for rehab at [facility] but insurance authorization will need to be obtained. 07/27: Patient denies any new concerns today. He denies abdominal pain, nausea or vomiting. Patient is tolerating clear liquid diet. Patient's had no diarrhea, normal bowel movement without blood or tarriness. Patient is afebrile, heart rate 73, blood pressure 134/71, pulse ox 97% on room air. Repeat blood work reveals WBC 5.6, hemoglobin 9.4, platelet count 324. Sodium 132 otherwise electrolytes and renal function normal. Capillary blood glucose between 108 and 187. Liver function tests reveal total bilirubin 0.6, AST 53, ALT 84, alkaline phosphatase 305. Lipase 223. Patient will be discharged to [facility] today once arrangements are completed. DISCHARGE DIAGNOSES 1. 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 2. Acute kidney injury due to acute tubular necrosis. 3. Abdominal discomfort with nausea most likely secondary to lymphoma and possibly lymphoma invasion that causing his pancreatitis. 4. 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 His next chemotherapy will be in 3 weeks. 5. Paroxysmal atrial fibrillation. 6. Hypertenion and hypertensive cardiovascular disease. 7. Hyperlipidemia. 8. Diabetes mellitus type 2. 9. Right nzcqr-sbl-qpoq amputation, stable. 10. Benign prostatic hypertrophy. 11. Generalized gout. 12. Gastroesophageal reflux disease. 13. DVT prophylaxis. 14. Insomnia. 15. Dry eye. DISCHARGE PLAN Subacute rehab at [facility] Greater than 35 minutes was utilized and coordinating patient's discharge. Impression and plan of care have been directed as dictated by the signing physician. Christin Mckeon nurse practitioner acting as scribe for signing physician. Patient Condition at Discharge: Stable Plan - Discharge Summary Discharge Rx Participant: Yes New Discharge Prescriptions: New Artificial Tears Ointment [Lubrifresh Pm Ointment] 1 applic BOTH EYES TID PRN each PRN Reason: Dry Eye(S) Nystatin 100,000 Unit/ml Susp [Mycostatin Oral Susp] 3,000,000 unit PO TID #0 ml Lidocaine Viscous 2% [Xylocaine Viscous] 30 ml PO TID ml Mag Hydrox/Al Hydrox/Simeth [Maalox] 30 ml PO TID ml Melatonin 3 mg PO HS PRN tab PRN Reason: Insomnia INSULIN ASPART (NovoLOG) [NovoLOG (formulary)] 0 unit SQ ACHS each predniSONE 100 mg PO DAILY@1500 #6 tab Acetaminophen Tab [Tylenol] 650 mg PO Q6HR PRN tab PRN Reason: Mild Pain Or Fever > 100.5 Continue metFORMIN HCL [Glucophage] 500 mg PO BID #0 Apixaban [Eliquis] 5 mg PO BID #0 allopurinoL [Zyloprim] 300 mg PO BID Docusate [Colace] 100 mg PO BID Glucosam/Chond/Hyalu/Cf Borate [Move Free Joint Health Tablet] 2 tab PO DAILY Prochlorperazine [Compazine] 10 mg PO Q6H PRN PRN Reason: Nausea And Vomiting Dapagliflozin Propanediol [Farxiga] 5 mg PO DAILY #30 tab Metoprolol Succinate (ER) [Toprol XL] 25 mg PO DAILY #90 tab Insulin Detemir [Levemir Flextouch Pen] 18 units SQ HS #2 pen Multivit-Min/FA/Lycopen/Lutein [Centrum Silver Tablet] 1 tab PO DAILY icosapent ethyL [Icosapent Ethyl] 2 gm PO BID-W/MEALS Pantoprazole [Protonix] 40 mg PO BID #60 tab Losartan [Cozaar] 25 mg PO DAILY #90 tab Discharge Medication List Multivit-Min/FA/Lycopen/Lutein [Centrum Silver Tablet] 1 tab PO DAILY 12/14/21 [History] Apixaban [Eliquis] 5 mg PO BID #0 12/16/21 [Rx] metFORMIN HCL [Glucophage] 500 mg PO BID #0 12/16/21 [Rx] Docusate [Colace] 100 mg PO BID 06/20/22 [History] Glucosam/Chond/Hyalu/Cf Borate [Move Free Joint Health Tablet] 2 tab PO DAILY 06/20/22 [History] Prochlorperazine [Compazine] 10 mg PO Q6H PRN 06/20/22 [History] allopurinoL [Zyloprim] 300 mg PO BID 06/20/22 [History] icosapent ethyL [Icosapent Ethyl] 2 gm PO BID-W/MEALS 06/20/22 [History] Pantoprazole [Protonix] 40 mg PO BID #60 tab 06/21/22 [Rx] Dapagliflozin Propanediol [Farxiga] 5 mg PO DAILY #30 tab 06/24/22 [Rx] Insulin Detemir [Levemir Flextouch Pen] 18 units SQ HS #2 pen 06/24/22 [Rx] Losartan [Cozaar] 25 mg PO DAILY #90 tab 06/24/22 [Rx] Metoprolol Succinate (ER) [Toprol XL] 25 mg PO DAILY #90 tab 06/24/22 [Rx] Acetaminophen Tab [Tylenol] 650 mg PO Q6HR PRN tab 07/26/22 [Rx] Artificial Tears Ointment [Lubrifresh Pm Ointment] 1 applic BOTH EYES TID PRN each 07/26/22 [Rx] INSULIN ASPART (NovoLOG) [NovoLOG (formulary)] 0 unit SQ ACHS each 07/26/22 [Rx] Lidocaine Viscous 2% [Xylocaine Viscous] 30 ml PO TID ml 07/26/22 [Rx] Mag Hydrox/Al Hydrox/Simeth [Maalox] 30 ml PO TID ml 07/26/22 [Rx] Melatonin 3 mg PO HS PRN tab 07/26/22 [Rx] Nystatin 100,000 Unit/ml Susp [Mycostatin Oral Susp] 3,000,000 unit PO TID #0 ml 07/26/22 [Rx] predniSONE 100 mg PO DAILY@1500 #6 tab 07/26/22 [Rx] Follow up Appointment(s)/Referral(s): Jaye Almazan MD [STAFF PHYSICIAN] - 1 Week Sophie Segura MD [STAFF PHYSICIAN] - 1 Week (AT REHAB) Activity/Diet/Wound Care/Special Instructions: Clarification: Maalox 30 mL, lidocaine viscous 2% 30 mL, Benadryl elixir 75 mg, nystatin 100,000 units per mL 3 million units. Administer 5 ML, patient can swish and spit or swallow based on symptoms 3 times daily. Salt and soda mouthwash 5 ML's 5 times daily, swish and spit, use before cools solution if being given at the same time. Discharge Disposition: TRANSFER TO SNF/ECF
[2022-07-26 09:49] LABS: African American GFR (CKD) 110.8 (60.0-200.0); Albumin 3.4 g/dL (3.8-4.9); Albumin/Globulin Ratio 1.79 (1.60-3.17); Anion Gap 15.6 mmol/L (10.00-18.00); BUN/Creat Ratio 26.33 Ratio (12.00-20.00); Blood Urea Nitrogen 15.8 mg/dL (9.0-27.0); Calcium 9.2 mg/dL (8.7-10.3); Carbon Dioxide 16.4 mmol/L (20.0-27.5); Globulin 1.9 g/dL (1.6-3.3); Non-African American GFR(CKD) 95.6 (60.0-200.0); Potassium 4.1 mmol/L (3.5-5.5); Total Bilirubin 0.4 mg/dL (0.30-1.20); Total Protein 5.3 g/dL (6.2-8.2)
[2022-07-26] MEDS: allopurinoL 300 MG TAB PO SCH ×2 (10:06→22:04)
[2022-07-26] MEDS ORDERED: GLYCERIN ADULT SUPPOSITORY 1 EACH RECTAL PRN (10:06)
[2022-07-26] MEDS ORDERED: bisacodyL 5 MG TABLET.DR PO STA (10:06)
[2022-07-26] MEDS: APIXABAN 5 MG TAB PO SCH ×2 (10:06→22:04)
[2022-07-26] MEDS: METOPROLOL SUCCINATE (ER) 25 MG TAB.ER.24H PO SCH (10:07)
[2022-07-26] MEDS: LOSARTAN 25 MG TAB PO SCH (10:07)
[2022-07-26] MEDS: PANTOPRAZOLE 40 MG TABLET PO SCH ×2 (10:07→22:05)
[2022-07-26] MEDS: metFORMIN 500 MG TAB PO SCH ×2 (10:07→22:05)
[2022-07-26] MEDS: MULTIVITAMINS, THERA 1 EACH TAB PO SCH (10:07)
[2022-07-26] MEDS: DAPAGLIFLOZIN PROPANEDIOL 5 MG TABLET PO SCH (10:07)
[2022-07-26] MEDS: DOCUSATE 100 MG CAP PO SCH ×2 (10:07→22:04)
[2022-07-26] MEDS: MAG HYDROX/AL HYDROX/SIMETH 30 ML, LIDOCAINE VISCOUS 2% 30 ML, diphenhydrAMINE ELIXIR 7... PO SCH ×12 (10:08→22:07)
--- NOTE | 2022-07-26 10:17 | P.PN ---
Subjective Progress Note Date: 07/26/22 Principal diagnosis: Weakness, abdominal pain. DLBCL In follow-up today patient is overall doing well. He's been encouraged to work with staff for strength. Did discuss the case with internal medicine, patient does qualify for inpatient rehab and is agreeable to the same. He denies fevers, nausea, chest pain, shortness of breath, cough, bleeding or rash. He does have some mild oral irritation, is weak and tires very easily with activity. Currently no significant side effects or hematological toxicities related to chemotherapy. He is complaining of constipation, feels as though he needs to have a bowel movement. Objective - Vital Signs Vital signs: Vital Signs Temp 97.4 F L 07/26/22 05:00 Pulse 67 07/26/22 10:05 Resp 16 07/26/22 05:00 BP 152/67 07/26/22 10:05 Pulse Ox 98 07/26/22 10:05 FiO2 Intake & Output 07/25/22 07/26/22 07/26/22 18:59 06:59 18:59 Intake Total 358 Balance 358 Weight 100.8 kg Intake: Oral 358 Other: Voiding Method Bedside Commode Bedside Commode Urinal Urinal # Voids 3 - Constitutional General appearance: Present: cooperative, no acute distress, obese - EENT Eyes: Present: anicteric sclerae, EOMI, poor dentition ENT: Present: hearing grossly normal, normal oropharynx - Respiratory Respiratory: right: rales (Upper lobe), left: CTA - Cardiovascular Rhythm: regular Heart sounds: normal: S1, S2 Abnormal Heart Sounds: Absent: systolic murmur, diastolic murmur, rub, S3 Gallop, S4 Gallop, click, other - Peripheral edema leg Peripheral Edema: right: Other (Above-knee amputation), left: Trace - Gastrointestinal General gastrointestinal: Present: normal bowel sounds, soft. Absent: absent bowel sounds, decreased bowel sounds, distended, hepatomegaly, hyperactive bowel sounds, organomegaly, rigid, scaphoid, splenomegaly, tenderness, umbilical hernia, ventral hernia - Integumentary Integumentary: Present: pale - Neurologic Neurologic: Present: CNII-XII intact - Musculoskeletal Musculoskeletal: Present: generalized weakness - Psychiatric Psychiatric: Present: A&O x's 3, appropriate affect, intact judgment & insight - Labs CBC & Chem 7: 07/26/22 05:24 11/02/22 05:24 Labs: Abnormal Lab Results - Last 24 Hours (Table) 07/25/22 07/25/22 07/25/22 Range/Units 12:02 17:13 20:22 RBC (4.30-5.90) m/uL Hgb (13.0-17.5) gm/dL Hct (39.0-53.0) % MCV (80.0-100.0) fL RDW (11.5-15.5) % Neutrophils # (1.3-7.7) k/uL Lymphocytes # (1.0-4.8) k/uL Carbon Dioxide (20.0-27.5) mmol/L BUN/Creatinine Ratio (12.00-20.00) Ratio Glucose (70-110) mg/dL POC Glucose (mg/dL) 144 H 153 H 137 H (70-110) mg/dL AST (14-35) U/L ALT (10-49) U/L Alkaline Phosphatase (41-126) U/L Total Protein (6.2-8.2) g/dL Albumin (3.8-4.9) g/dL 07/26/22 07/26/22 07/26/22 Range/Units 05:24 05:24 07:12 RBC 4.01 L (4.30-5.90) m/uL Hgb 10.2 L (13.0-17.5) gm/dL Hct 31.7 L (39.0-53.0) % MCV 79.2 L (80.0-100.0) fL RDW 17.3 H (11.5-15.5) % Neutrophils # 8.7 H (1.3-7.7) k/uL Lymphocytes # 0.5 L (1.0-4.8) k/uL Carbon Dioxide 16.4 L (20.0-27.5) mmol/L BUN/Creatinine Ratio 26.33 H (12.00-20.00) Ratio Glucose 136 H (70-110) mg/dL POC Glucose (mg/dL) 130 H (70-110) mg/dL AST 66 H (14-35) U/L ALT 92 H (10-49) U/L Alkaline Phosphatase 429 H (41-126) U/L Total Protein 5.3 L (6.2-8.2) g/dL Albumin 3.4 L (3.8-4.9) g/dL Assessment and Plan (1) Pancreatitis Current Visit: Yes Status: Acute Priority: High Code(s): K85.90 - ACUTE PANCREATITIS WITHOUT NECROSIS OR INFECTION, UNSP SNOMED Code(s): 59247401 (2) Diffuse large B cell lymphoma Current Visit: Yes Status: Acute Code(s): C83.30 - DIFFUSE LARGE B-CELL LYMPHOMA, UNSPECIFIED SITE SNOMED Code(s): 921650293 Plan: Pancreatitis, transaminitis-uncertain if from invasion of lymphoma or obstruction because of lymphoma-as patient's clinical course progresses, this is a most likely scenario. Lipase today is normal. Reinforced with patient he needs to maintain the liquid diet for maybe 10-14 days, to give the chemo a chance to work. Hope is that the pancreatitis will resolve. Patient has been provided with written instructions for clear liquid diet. LFTs are improved today as well. Continue supportive medications. Clear liquids only-do not advance diet Cont daily weights. Discussed with Internal Medicine, plan is for inpatient rehab. Agree with thier plan. Patient is not due for next cycle of chemotherapy for 3 weeks. He will not resume chemotherapy until he is discharged from rehabilitation. Patient is complaining of constipation. Dulcolax 1 stat, suppository if necessary.
[2022-07-26 11:46] LABS: Glucose,Whole Blood 153 mg/dL (70-110)
[2022-07-26] MEDS: predniSONE 50 MG TAB PO SCH (15:24)
[2022-07-26] MEDS: ARTIFICIAL TEARS OINTMENT 3.5 GM TUBE BOTH EYES SCH ×2 (15:33→22:07)
[2022-07-26 17:45] LABS: Glucose,Whole Blood 108 mg/dL (70-110)
[2022-07-26] MEDS: SODIUM CHLORIDE 0.9% 1,000 ML IV SCH (18:13)
[2022-07-26 20:13] LABS: Glucose,Whole Blood 187 mg/dL (70-110)
[2022-07-26 20:27] VITALS: RESP 16
[2022-07-26] MEDS: INSULIN DETEMIR (LEVEMIR) 100 UNIT/ML SYR SQ SCH (22:05)
[2022-07-26] MEDS: MELATONIN 3 MG TABLET PO PRN (22:05)
[2022-07-27] MEDS: SALT AND SODA MOUTHWASH 1,000 ML PO SCH ×3 (00:21→12:28)
[2022-07-27 07:03] LABS: ALT 84 U/L (4-49); AST 53 U/L (17-59); African American GFR (CKD) >90 (>60 ml/min/1.73 sqM); Albumin 2.9 g/dL (3.5-5.0); Albumin/Globulin Ratio 1.4; Alkaline Phosphatase 305 U/L (38-126); Anion Gap 8 mmol/L; Blood Urea Nitrogen 15 mg/dL (9-20); Calcium 8.6 mg/dL (8.4-10.2); Carbon Dioxide 22 mmol/L (22-30); Chloride 102 mmol/L (98-107); Globulin 2.1 g/dL; Glucose 169 mg/dL (74-99); Lipase 223 U/L (23-300); Non-African American GFR(CKD) >90 (>60 ml/min/1.73 sqM); Sodium 132 mmol/L (137-145); Total Bilirubin 0.6 mg/dL (0.2-1.3)
[2022-07-27 07:12] LABS: Glucose,Whole Blood 156 mg/dL (70-110)
[2022-07-27] MEDS: NON FORMULARY DRUG (Icosapent Ethyl [Icosapent Ethyl] 1 GM Capsule) PO SCH (07:13)
[2022-07-27] MEDS: metFORMIN 500 MG TAB PO SCH (08:04)
[2022-07-27] MEDS: INSULIN ASPART (NovoLOG) 100 UNIT/ML VIAL SQ SCH ×2 (08:04→13:01)
[2022-07-27] MEDS: LOSARTAN 25 MG TAB PO SCH (08:04)
[2022-07-27] MEDS: DAPAGLIFLOZIN PROPANEDIOL 5 MG TABLET PO SCH (08:04)
[2022-07-27] MEDS: APIXABAN 5 MG TAB PO SCH (08:04)
[2022-07-27] MEDS: PANTOPRAZOLE 40 MG TABLET PO SCH (08:05)
[2022-07-27] MEDS: METOPROLOL SUCCINATE (ER) 25 MG TAB.ER.24H PO SCH (08:05)
[2022-07-27] MEDS: allopurinoL 300 MG TAB PO SCH (08:05)
[2022-07-27] MEDS: MULTIVITAMINS, THERA 1 EACH TAB PO SCH (08:05)
[2022-07-27] MEDS: ARTIFICIAL TEARS OINTMENT 3.5 GM TUBE BOTH EYES SCH (08:05)
[2022-07-27] MEDS: MAG HYDROX/AL HYDROX/SIMETH 30 ML, LIDOCAINE VISCOUS 2% 30 ML, diphenhydrAMINE ELIXIR 7... PO SCH ×4 (08:05)
[2022-07-27] MEDS: DOCUSATE 100 MG CAP PO SCH (08:05)
[2022-07-27] MEDS: SODIUM CHLORIDE 0.9% 1,000 ML IV SCH (08:06)
[2022-07-27 09:11] LABS: HCT 28.8 % (39.6-50.0); HGB 9.4 g/dL (13.0-17.0); MCH 26.3 pg (27.0-32.0); MCHC 32.6 g/dL (32.0-37.0); MCV 80.4 fL (80.0-97.0); Mean Platelet Volume 10.1 fL (9.5-12.2); NRBC Per 100 WBC 0 /100 WBCS (0.0-0.0); Platelet Count 324 X 10*3/uL (140-440); RBC 3.58 X 10*6/uL (4.40-5.60); RDW 17.8 % (11.5-14.5)
[2022-07-27 12:20] LABS: Glucose,Whole Blood 155 mg/dL (70-110)
[2022-07-27 12:59] VITALS: BP 159/73; PULSE 65; TEMP 97.5
--- NOTE | 2022-07-27 17:57 | P.PN ---
Subjective Progress Note Date: 07/27/22 Principal diagnosis: Weakness, abdominal pain. DLBCL In follow-up today patient is overall doing well. No significant side effects or hematological toxicities related to chemotherapy. Plan for rehabilitation Objective - Vital Signs Vital signs: Vital Signs Temp 97.5 F L 07/27/22 12:20 Pulse 65 07/27/22 12:20 Resp 16 07/27/22 12:20 BP 159/73 07/27/22 12:20 Pulse Ox 98 07/27/22 12:20 FiO2 Intake & Output 07/26/22 07/27/22 07/27/22 18:59 06:59 18:59 Intake Total 600 550 Balance 600 550 Weight 100.9 kg Intake: Intake, IV Titration 600 550 Amount Sodium Chloride 0.9% 1, 600 550 000 ml @ 50 mls/hr IV . [facility] Rx#:[id number] Other: Voiding Method Bedside Commode Bedside Commode Bedside Commode Urinal Urinal Urinal # Voids 2 1 - Constitutional General appearance: Present: cooperative, no acute distress, obese - EENT Eyes: Present: anicteric sclerae, EOMI ENT: Present: hearing grossly normal, normal oropharynx - Respiratory Respiratory: bilateral: CTA - Cardiovascular Rhythm: regular Heart sounds: normal: S1, S2 Abnormal Heart Sounds: Absent: systolic murmur, diastolic murmur, rub, S3 Gallop, S4 Gallop, click, other - Peripheral edema leg Peripheral Edema: left: None - Gastrointestinal General gastrointestinal: Present: normal bowel sounds, soft - Neurologic Neurologic: Present: CNII-XII intact - Musculoskeletal Musculoskeletal: Present: generalized weakness - Psychiatric Psychiatric: Present: A&O x's 3, appropriate affect, intact judgment & insight - Labs CBC & Chem 7: 07/27/22 06:02 07/27/22 06:02 Labs: Abnormal Lab Results - Last 24 Hours (Table) 07/26/22 07/27/22 07/27/22 Range/Units 20:11 06:02 06:02 RBC 3.58 L (4.40-5.60) X 10*6/uL Hgb 9.4 L (13.0-17.0) g/dL Hct 28.8 L (39.6-50.0) % MCH 26.3 L (27.0-32.0) pg RDW 17.8 H (11.5-14.5) % Sodium 132 L (137-145) mmol/L Creatinine 0.59 L (0.66-1.25) mg/dL Glucose 169 H (74-99) mg/dL POC Glucose (mg/dL) 187 H (70-110) mg/dL ALT 84 H (4-49) U/L Alkaline Phosphatase 305 H (38-126) U/L Total Protein 5.0 L (6.3-8.2) g/dL Albumin 2.9 L (3.5-5.0) g/dL 07/27/22 07/27/22 Range/Units 07:03 12:18 RBC (4.40-5.60) X 10*6/uL Hgb (13.0-17.0) g/dL Hct (39.6-50.0) % MCH (27.0-32.0) pg RDW (11.5-14.5) % Sodium (137-145) mmol/L Creatinine (0.66-1.25) mg/dL Glucose (74-99) mg/dL POC Glucose (mg/dL) 156 H 155 H (70-110) mg/dL ALT (4-49) U/L Alkaline Phosphatase (38-126) U/L Total Protein (6.3-8.2) g/dL Albumin (3.5-5.0) g/dL Assessment and Plan (1) Pancreatitis Status: Acute Priority: High Code(s): K85.90 - ACUTE PANCREATITIS WITHOUT NECROSIS OR INFECTION, UNSP SNOMED Code(s): 22523478 (2) Diffuse large B cell lymphoma Status: Acute Code(s): C83.30 - DIFFUSE LARGE B-CELL LYMPHOMA, UNSPECIFIED SITE SNOMED Code(s): 808021692 Plan: Pancreatitis, transaminitis-uncertain if from invasion of lymphoma or obstruction because of lymphoma-as patient's clinical course progresses, this is a most likely scenario. Lipase today is normal. Reinforced with patient he needs to maintain the liquid diet for maybe 10-14 days, to give the chemo a chance to work. Hope is that the pancreatitis will resolve. Continue supportive medications as needed for side effects from chemotherapy. Clear liquids only-do not advance diet Plan is for inpatient rehab. Agree with plan. Patient is not due for next cycle of chemotherapy for 3 weeks. He will not resume chemotherapy until he is discharged from rehabilitation. attests: I have seen and examined patient, preformed H&P, developed impression and plan of care. Discussed with dictator. Agree with documentation, dictated as a scribe
== END 2022-07-27 14:26 | DRG 840 ==
LOC: EC 16:55 → 3SCARD 20:44 → 5NMEDONC 07-20 07:47
PROVIDERS: ADMIT Internal Medicine; ATTEND Internal Medicine
DX: C83.38 Diffuse large B-cell lymphoma, lymph nodes of multiple sites (principal); K85.90 Acute pancreatitis without necrosis or infection, unspecified; N17.0 Acute kidney failure with tubular necrosis; I44.2 Atrioventricular block, complete; K86.1 Other chronic pancreatitis; E11.9 Type 2 diabetes mellitus without complications; I11.9 Hypertensive heart disease without heart failure; D63.0 Anemia in neoplastic disease; E78.5 Hyperlipidemia, unspecified; E83.42 Hypomagnesemia; I48.0 Paroxysmal atrial fibrillation; E86.0 Dehydration; R53.81 Other malaise; R26.2 Difficulty in walking, not elsewhere classified; K21.9 Gastro-esophageal reflux disease without esophagitis; N40.0 Benign prostatic hyperplasia without lower urinary tract symptoms; M10.9 Gout, unspecified; R53.83 Other fatigue; R74.01 Elevation of levels of liver transaminase levels; K59.00 Constipation, unspecified; G47.00 Insomnia, unspecified; W19.XXXA Unspecified fall, initial encounter; H04.129 Dry eye syndrome of unspecified lacrimal gland; Z20.822 Contact with and (suspected) exposure to COVID-19; Z89.611 Acquired absence of right leg above knee; Z87.891 Personal history of nicotine dependence; Z79.899 Other long term (current) drug therapy; Z79.01 Long term (current) use of anticoagulants; Z79.84 Long term (current) use of oral hypoglycemic drugs; Z79.4 Long term (current) use of insulin; Z97.13 Presence of artificial right leg (complete) (partial); Z95.0 Presence of cardiac pacemaker; Z92.21 Personal history of antineoplastic chemotherapy
CPT/HCPCS: 36415; 71045; 80053; 80061; 81003; 83036; 83605; 83690; 83735; 85025; 85027; 85610; 85730; 87635; 93005; 96361; 96365; 96366; 99285

== ENCOUNTER 2022-08-14 15:07 | Emergency (ER) | payer MEDICARE, OTHER ==
--- NOTE | 2022-08-14 15:35 | ED ---
Weakness HPI <Sb Campoverde - Last Filed: 08/14/22 19:05> - General Source: patient, EMS Mode of arrival: EMS Limitations: altered mental status <Elyssa Fisher - Last Filed: 08/17/22 01:40> - General Chief complaint: Weakness Stated complaint: weakness Time Seen by Provider: 08/14/22 15:10 - History of Present Illness Initial comments: 77-year-old male presents to the emergency department from [facility]. Currently under treatment for non-Hodgkin's lymphoma. He is sent from the [facility] for the report to increasing weakness, altered mental status. He was found to be Covid +10 days ago. Patient a and O 2 at baseline however poor at answering questions. He denies any chest pain or shortness of breath. No headaches or visual changes. HPI is limited because of this (Elyssa Fisher) - Related Data Home Medications Medication Instructions Recorded Confirmed Multivit-Min/FA/Lycopen/Lutein 1 tab PO DAILY@1200 12/14/21 08/14/22 [Centrum Silver Tablet] Docusate [Colace] 100 mg PO BID@0800,1700 06/20/22 08/14/22 Glucosam/Chond/Hyalu/Cf Borate 2 tab PO DAILY@1200 06/20/22 08/14/22 [Move Free Joint Health Tablet] Prochlorperazine [Compazine] 10 mg PO Q6H PRN 06/20/22 08/14/22 icosapent ethyL [Icosapent Ethyl] 2 gm PO BID@0800,1700 06/20/22 08/14/22 Apixaban [Eliquis] 5 mg PO BID@0800,1700 08/14/22 08/14/22 Ascorbic Acid [Vitamin C] 1,000 mg PO DAILY@0800 08/14/22 08/14/22 Cholecalciferol [Vitamin D3 (25 50 mcg PO DAILY@0800 08/14/22 08/14/22 Mcg = 1000 Iu)] Dapagliflozin Propanediol [Farxiga] 5 mg PO DAILY@0800 08/14/22 08/14/22 Ensure Clear 1 can PO BID@1200,2100 08/14/22 08/14/22 Glucerna Shake 1 can PO BID@0800,1700 08/14/22 08/14/22 INSULIN ASPART (NovoLOG) [NovoLOG See Protocol SQ ACHS 08/14/22 08/14/22 (formulary)] Insulin Detemir [Levemir Flextouch 18 units SQ HS@209908/14/22 08/14/22 Pen] Ipratropium-Albuterol Nebulize 3 ml INHALATION RT-Q6H 08/14/22 08/14/22 [Duoneb 0.5 mg-3 mg/3 ml Soln] Lidocaine Viscous 2% [Xylocaine 30 ml PO TID@0700,1400,209908/14/22 08/14/22 Viscous] Liquacel 30 ml PO BID@1200,209908/14/22 08/14/22 Losartan [Cozaar] 25 mg PO DAILY@0800 08/14/22 08/14/22 Mag Hydrox/Al Hydrox/Simeth 30 ml PO TID@0700,1400,209908/14/22 08/14/22 [Maalox] Magnesium Hydroxide [Milk of 7,200 mg PO Q48H PRN 08/14/22 08/14/22 Magnesia Concentrate] Metoprolol Succinate (ER) [Toprol 25 mg PO DAILY@0800 08/14/22 08/14/22 XL] Na Phos,M-B/Na Phos,Di-Ba [Fleet 133 ml RECTAL DAILY PRN 08/14/22 08/14/22 Adult] Nystatin 100,000 Unit/ml Susp 500,000 unit PO TID@0700,1400,209908/14/22 08/14/22 [Mycostatin Oral Susp] Pantoprazole [Protonix] 40 mg PO BID@0800,1700 08/14/22 08/14/22 Zinc Sulfate [Orazinc] 220 mg PO DAILY@0800 08/14/22 08/14/22 allopurinoL [Zyloprim] 300 mg PO BID@0800,1700 08/14/22 08/14/22 guaiFENesin SYRUP 100MG/5ML 100 mg PO Q4H PRN 08/14/22 08/14/22 [Robitussin] metFORMIN HCL [Glucophage] 500 mg PO BID@0800,1700 08/14/22 08/14/22 Previous Rx's Medication Instructions Recorded Acetaminophen Tab [Tylenol] 650 mg PO Q6HR PRN tab 07/26/22 Artificial Tears Ointment 1 applic BOTH EYES TID PRN each 07/26/22 [Lubrifresh Pm Ointment] Melatonin 3 mg PO HS PRN tab 07/26/22 Allergies Allergy/AdvReac Type Severity Reaction Status Date / Time No Known Allergies Allergy Verified 08/14/22 17:34 Review of Systems ROS Other: All systems not noted in ROS Statement are negative. <Sb Campoverde - Last Filed: 08/14/22 19:05> ROS Other: All systems not noted in ROS Statement are negative. <Elyssa Fisher - Last Filed: 08/17/22 01:40> ROS Statement: Those systems with pertinent positive or pertinent negative responses have been documented in the HPI. Past Medical History Past Medical History: Atrial Fibrillation, Cancer, Diabetes Mellitus, H yperlipidemia, Hypertension Additional Past Medical History / Comment(s): Non-Hodgkin's lymphoma, recent chemo port placed. History of Any Multi-Drug Resistant Organisms: None Reported Past Surgical History: Cholecystectomy, Orthopedic Surgery, Pacemaker Additional Past Surgical History / Comment(s): right aka due to accident Past Anesthesia/Blood Transfusion Reactions: No Reported Reaction Additional Past Anesthesia/Blood Transfusion Reaction / Comment(s): na Type of Cardiac Device: Permanent Pacemaker Device Placement Date:: December 16, 2021 Past Psychological History: No Psychological Hx Reported Smoking Status: Never smoker Past Alcohol Use History: None Reported Past Drug Use History: None Reported - Past Family History Father Family Medical History: Cancer Additional Family Medical History / Comment(s): Pt states father was heavy smoker and developed throat cancer Mother Family Medical History: Hypertension Additional Family Medical History / Comment(s): Pt states mother was healthy and lived to <Elyssa Fisher - Last Filed: 08/17/22 01:40> General Exam Limitations: altered mental status General appearance: alert, in no apparent distress Head exam: Present: atraumatic, normocephalic, normal inspection Eye exam: Present: normal appearance, PERRL, EOMI. Absent: scleral icterus, conjunctival injection, periorbital swelling ENT exam: Present: normal exam, mucous membranes moist Neck exam: Present: normal inspection. Absent: tenderness, meningismus, lymphadenopathy Respiratory exam: Present: normal lung sounds bilaterally. Absent: respiratory distress, wheezes, rales, rhonchi, stridor Cardiovascular Exam: Present: regular rate, normal rhythm, normal heart sounds. Absent: systolic murmur, diastolic murmur, rubs, gallop, clicks GI/Abdominal exam: Present: soft, normal bowel sounds. Absent: distended, tenderness, guarding, rebound, rigid Extremities exam: Present: pedal edema, other (Right BKA) Back exam: Present: normal inspection Neurological exam: Present: altered, CN II-XII intact Psychiatric exam: Present: normal affect, normal mood Skin exam: Present: warm, dry, intact, normal color. Absent: rash <Elyssa Fisher - Last Filed: 08/17/22 01:40> Course Vital Signs 08/14/22 08/14/22 08/14/22 15:08 16:13 17:31 Temperature 98.5 F Pulse Rate 72 82 84 Respiratory 20 20 18 Rate Blood Pressure 155/89 133/66 113/78 O2 Sat by Pulse 96 96 96 Oximetry 08/14/22 08/14/22 18:02 19:00 Temperature 98.2 F Pulse Rate 85 79 Respiratory 18 16 Rate Blood Pressure 101/80 128/88 O2 Sat by Pulse 95 95 Oximetry EKG Findings - EKG Comments: EKG Findings:: EKG demonstrates sinus rhythm with rate of 84. Pr interval 173. QRS 157. QTC of 459. No acute ST segment elevations or depressions. Left bundle branch block. EKG interpreted by myself <Elyssa Fisher - Last Filed: 08/17/22 01:40> Medical Decision Making - Lab Data Result diagrams: 08/14/22 15:27 08/14/22 15:27 <Sb Campoverde - Last Filed: 08/14/22 19:05> - Lab Data Result diagrams: 08/14/22 15:27 08/14/22 15:27 <Elyssa Fisher - Last Filed: 08/17/22 01:40> - Medical Decision Making Patient By Previous Shift Physician, Dr. Elyssa Daniels. Briefly, Patient 77-year-old Male Who Is DO NOT RESUSCITATE. Presents to the Emergency Department Today for Altered Mental Status, Generalized Weakness. Patient Had Tested Positive for COVID-19 10 Days Ago. Labs Reviewed. CBC Unremarkable. Coag Panel Is Negative. Metabolic Panel That Acceptable Limits. Patient Has Transaminitis. Covid Test Is Positive. Computed Tomography Scan of Brain Is Unremarkable. Chest X-Ray Suggests CHF Versus Superimposed Infectious Process. Plan at Sign out Was for Computed Tomography Scan Abdomen and Pelvis Based on patient's blood work there is suspicion of biliary obstruction likely secondary to this mass despite no obvious radial graphic evidence. Case discussed with son physician group who did not feel patient's candidate to be admitted to our facility given we do not have GI coverage. Case discussed with Dr. Amado at [facility]. They're willing to accept patient. ER tra nsfer. Computed tomography scan of abdomen and pelvis shows large infiltrate of mass in the retroperitoneum which is infiltrating the right hilum duodenum. Appears to be increased in size compared to old exam. Patient reevaluated bedside at 7 5 PM found with stable medical condition. His abdomen is soft and does not appear in acute distress.. (Sb Campoverde) Vital patient's placed into room 7. Thorough history and physical exam was performed. IV access established laboratory studies were conducted. Patient still is positive for Covid. AST and ALT markedly elevated. CT of the brain demonstrates chronic small vessel ischemia. Chest x-ray demonstrates bilateral pleural effusions with possible superimposed infection. CT of the abdomen is performed at this time. Patient will be signed out to Dr. Campoverde. (Elyssa Fisher) - Lab Data Lab Results 08/14/22 08/14/22 08/14/22 Range/Units 15:27 15:27 15:27 WBC 10.5 (3.8-10.6) k/uL RBC 4.53 (4.30-5.90) m/uL Hgb 11.3 L (13.0-17.5) gm/dL Hct 35.4 L (39.0-53.0) % MCV 78.1 L (80.0-100.0) fL MCH 25.0 (25.0-35.0) pg MCHC 32.1 (31.0-37.0) g/dL RDW 18.8 H (11.5-15.5) % Plt Count 266 (150-450) k/uL MPV 8.1 Neutrophils % 93 % Lymphocytes % 2 % Monocytes % 4 % Eosinophils % 0 % Basophils % 0 % Neutrophils # 9.7 H (1.3-7.7) k/uL Lymphocytes # 0.3 L (1.0-4.8) k/uL Monocytes # 0.4 (0-1.0) k/uL Eosinophils # 0.0 (0-0.7) k/uL Basophils # 0.0 (0-0.2) k/uL Hypochromasia Moderate Poikilocytosis Slight Anisocytosis Slight Microcytosis Slight PT 11.5 (9.0-12.0) sec INR 1.1 (<1.2) APTT 22.6 (22.0-30.0) sec Sodium 132 L (137-145) mmol/L Potassium 4.3 (3.5-5.1) mmol/L Chloride 103 (98-107) mmol/L Carbon Dioxide 23 (22-30) mmol/L Anion Gap 6 mmol/L BUN 17 (9-20) mg/dL Creatinine 0.41 L (0.66-1.25) mg/dL Est GFR (CKD-EPI)AfAm >90 (>60 ml/min/1.73 sqM) Est GFR (CKD-EPI)NonAf >90 (>60 ml/min/1.73 sqM) Glucose 224 H (74-99) mg/dL POC Glucose (mg/dL) (70-110) mg/dL POC Glu [employer] Front Desk Clerk ID Calcium 8.3 L (8.4-10.2) mg/dL Magnesium 2.0 (1.6-2.3) mg/dL Total Bilirubin 4.3 H (0.2-1.3) mg/dL AST 561 H (17-59) U/L ALT 829 H (4-49) U/L Alkaline Phosphatase 758 H (38-126) U/L Ammonia (<30) umol/L Troponin I (0.000-0.034) ng/mL NT-Pro-B Natriuret Pep pg/mL Total Protein 5.4 L (6.3-8.2) g/dL Albumin 3.1 L (3.5-5.0) g/dL Urine Color Urine Appearance (Clear) Urine pH (5.0-8.0) Ur Specific [place] (1.001-1.035) Urine Protein (Negative) Urine Glucose (UA) (Negative) Urine Ketones (Negative) Urine Blood (Negative) Urine Nitrite (Negative) Urine Bilirubin (Negative) Urine Urobilinogen (<2.0) mg/dL Ur Leukocyte Esterase (Negative) Urine RBC (0-5) /hpf Urine WBC (0-5) /hpf Ur Squamous Epith Cells (0-4) /hpf Urine Bacteria (None) /hpf Serum Alcohol <10 mg/dL Coronavirus (PCR) (Not Detectd) 08/14/22 08/14/22 08/14/22 Range/Units 15:27 15:27 15:27 WBC (3.8-10.6) k/uL RBC (4.30-5.90) m/uL Hgb (13.0-17.5) gm/dL Hct (39.0-53.0) % MCV (80.0-100.0) fL MCH (25.0-35.0) pg MCHC (31.0-37.0) g/dL RDW (11.5-15.5) % Plt Count (150-450) k/uL MPV Neutrophils % % Lymphocytes % % Monocytes % % Eosinophils % % Basophils % % Neutrophils # (1.3-7.7) k/uL Lymphocytes # (1.0-4.8) k/uL Monocytes # (0-1.0) k/uL Eosinophils # (0-0.7) k/uL Basophils # (0-0.2) k/uL Hypochromasia Poikilocytosis Anisocytosis Microcytosis PT (9.0-12.0) sec INR (<1.2) APTT (22.0-30.0) sec Sodium (137-145) mmol/L Potassium (3.5-5.1) mmol/L Chloride (98-107) mmol/L Carbon Dioxide (22-30) mmol/L Anion Gap mmol/L BUN (9-20) mg/dL Creatinine (0.66-1.25) mg/dL Est GFR (CKD-EPI)AfAm (>60 ml/min/1.73 sqM) Est GFR (CKD-EPI)NonAf (>60 ml/min/1.73 sqM) Glucose (74-99) mg/dL POC Glucose (mg/dL) (70-110) mg/dL POC Glu Hotel Front Desk Clerk ID Calcium (8.4-10.2) mg/dL Magnesium (1.6-2.3) mg/dL Total Bilirubin (0.2-1.3) mg/dL AST (17-59) U/L ALT (4-49) U/L Alkaline Phosphatase (38-126) U/L Ammonia 10 (<30) umol/L Troponin I 0.028 (0.000-0.034) ng/mL NT-Pro-B Natriuret Pep pg/mL Total Protein (6.3-8.2) g/dL Albumin (3.5-5.0) g/dL Urine Color Yellow Urine Appearance Clear (Clear) Urine pH 6.5 (5.0-8.0) Ur Specific [place] 1.032 (1.001-1.035) Urine Protein Trace H (Negative) Urine Glucose (UA) 4+ H (Negative) Urine Ketones Negative (Negative) Urine Blood Negative (Negative) Urine Nitrite Negative (Negative) Urine Bilirubin 2+ H (Negative) Urine Urobilinogen <2.0 (<2.0) mg/dL Ur Leukocyte Esterase Moderate H (Negative) Urine RBC 3 (0-5) /hpf Urine WBC 24 H (0-5) /hpf Ur Squamous Epith Cells 2 (0-4) /hpf Urine Bacteria Rare H (None) /hpf Serum Alcohol mg/dL Coronavirus (PCR) (Not Detectd) 08/14/22 08/14/22 08/14/22 Range/Units 15:27 15:27 16:13 WBC (3.8-10.6) k/uL RBC (4.30-5.90) m/uL Hgb (13.0-17.5) gm/dL Hct (39.0-53.0) % MCV (80.0-100.0) fL MCH (25.0-35.0) pg MCHC (31.0-37.0) g/dL RDW (11.5-15.5) % Plt Count (150-450) k/uL MPV Neutrophils % % Lymphocytes % % Monocytes % % Eosinophils % % Basophils % % Neutrophils # (1.3-7.7) k/uL Lymphocytes # (1.0-4.8) k/uL Monocytes # (0-1.0) k/uL Eosinophils # (0-0.7) k/uL Basophils # (0-0.2) k/uL Hypochromasia Poikilocytosis Anisocytosis Microcytosis PT (9.0-12.0) sec INR (<1.2) APTT (22.0-30.0) sec Sodium (137-145) mmol/L Potassium (3.5-5.1) mmol/L Chloride (98-107) mmol/L Carbon Dioxide (22-30) mmol/L Anion Gap mmol/L BUN (9-20) mg/dL Creatinine (0.66-1.25) mg/dL Est GFR (CKD-EPI)AfAm (>60 ml/min/1.73 sqM) Est GFR (CKD-EPI)NonAf (>60 ml/min/1.73 sqM) Glucose (74-99) mg/dL POC Glucose (mg/dL) 225 H (70-110) mg/dL POC Glu Hotel Front Desk Clerk ID Gemma Scott Calcium (8.4-10.2) mg/dL Magnesium (1.6-2.3) mg/dL Total Bilirubin (0.2-1.3) mg/dL AST (17-59) U/L ALT (4-49) U/L Alkaline Phosphatase (38-126) U/L Ammonia (<30) umol/L Troponin I (0.000-0.034) ng/mL NT-Pro-B Natriuret Pep 686 pg/mL Total Protein (6.3-8.2) g/dL Albumin (3.5-5.0) g/dL Urine Color Urine Appearance (Clear) Urine pH (5.0-8.0) Ur Specific [place] (1.001-1.035) Urine Protein (Negative) Urine Glucose (UA) (Negative) Urine Ketones (Negative) Urine Blood (Negative) Urine Nitrite (Negative) Urine Bilirubin (Negative) Urine Urobilinogen (<2.0) mg/dL Ur Leukocyte Esterase (Negative) Urine RBC (0-5) /hpf Urine WBC (0-5) /hpf Ur Squamous Epith Cells (0-4) /hpf Urine Bacteria (None) /hpf Serum Alcohol mg/dL Coronavirus (PCR) Detected A (Not Detectd) Disposition Time of Disposition: 19:06 - Out of Hospital Transfer - Req. Specs Out of Hospital Transfer - Requested Specifics: Other Emergency Center ([facility]) <Sb Campoverde - Last Filed: 08/14/22 19:05> <Elyssa Fisher - Last Filed: 08/17/22 01:40> Clinical Impression: Transaminitis Disposition: OTHER INSTITUTION NOT DEFINED Condition: Serious Referrals: Nonstaff,Physician [Primary Care Provider] - 1-2 days
[2022-08-14 15:48] LABS: Anisocytosis Slight; Basophils % (A) 0 %; Eosinophils % (A) 0 %; HCT 35.4 % (39.0-53.0); HGB 11.3 gm/dL (13.0-17.5); Hypochromasia Moderate; Lymphocytes # (A) 0.3 k/uL (1.0-4.8); Lymphocytes % (A) 2 %; MCHC 32.1 g/dL (31.0-37.0); MCV 78.1 fL (80.0-100.0); Mean Platelet Volume 8.1; Microcytosis Slight; Monocytes # (A) 0.4 k/uL (0-1.0); Monocytes % (A) 4 %; Neutrophils # (A) 9.7 k/uL (1.3-7.7); Neutrophils % (A) 93 %; Platelet Count 266 k/uL (150-450); Poikilocytosis Slight; RBC 4.53 m/uL (4.30-5.90); RDW 18.8 % (11.5-15.5); WBC 10.5 k/uL (3.8-10.6)
[2022-08-14 15:57] LABS: AST 561 U/L (17-59); African American GFR (CKD) >90 (>60 ml/min/1.73 sqM); Albumin 3.1 g/dL (3.5-5.0); Alcohol <10 mg/dL; Alkaline Phosphatase 758 U/L (38-126); Anion Gap 6 mmol/L; Blood Urea Nitrogen 17 mg/dL (9-20); Calcium 8.3 mg/dL (8.4-10.2); Carbon Dioxide 23 mmol/L (22-30); Chloride 103 mmol/L (98-107); Glucose 224 mg/dL (74-99); Non-African American GFR(CKD) >90 (>60 ml/min/1.73 sqM); Sodium 132 mmol/L (137-145); Total Bilirubin 4.3 mg/dL (0.2-1.3); Total Protein 5.4 g/dL (6.3-8.2)
--- NOTE | 2022-08-14 16:07 | CT ---
EXAMINATION TYPE: CT brain wo con CT DLP: 1157.4 mGycm, Automated exposure control for dose reduction was used. DATE OF EXAM: 08/14/2022 3:59 PM COMPARISON: None. CLINICAL INDICATION:Male, 77 years old with history of Altered mental status, weakness TECHNIQUE: Brain: Axial CT images of the brain were obtained with coronal and sagittal reformats created and rev iewed. Contrast used: None. Oral contrast used: None. FINDINGS: Brain: Extra-axial spaces: No abnormal extra-axial fluid collections. Ventricular system: Dilatation in proportion to cerebral atrophy. Cerebral parenchyma: No acute intraparenchymal hemorrhage or mass effect. The shine-white junction is well differentiated. Scattered hypoattenuating areas are seen within the white matter. Cerebellum: Unremarkable. Mass effect: No evidence of midline shift. Intracranial vasculature: Atherosclerotic calcifications of the intracranial vessels. Soft tissues: Normal. Calvarium/osseous structures: No depressed skull fracture. Paranasal sinuses and mastoid air cells: Mild scattered paranasal sinus disease. Visualized orbits: Orbital contents are intact. IMPRESSION: 1. No acute intracranial process. 2. Nonspecific white matter changes, likely secondary to chronic small vessel ischemic disease.
--- NOTE | 2022-08-14 16:09 | XR ---
EXAMINATION TYPE: XR chest 2V DATE OF EXAM: 08/14/2022 3:51 PM COMPARISON: Chest radiographs from 07/19/2022 TECHNIQUE: XR chest 2V Frontal and lateral views of the chest. CLINICAL INDICATION:Male, 77 years old with history of altered mental status; FINDINGS: Lungs/Pleura: There is no evidence of pleural effusion or pneumothorax. Trace patchy airspace disease within both lower lobes. Pulmonary vascularity: Pulmonary vascular congestion. Heart/mediastinum: Cardiomediastinal silhouette is enlarged and stable. Atherosclerotic calcificatio ns are seen in the aorta. Two lead cardiac conduction device overlying the left hemithorax with lead tips projecting over the right ventricle and right atrium. Musculoskeletal: No acute osseous pathology. IMPRESSION: Pulmonary vascular congestion with stable cardiomegaly. Trace patchy airspace disease within both low er lobes. Findings suggest CHF exacerbation with possibility of superimposed infectious process.
[2022-08-14 16:11] LABS: ALT 829 U/L (4-49); Potassium 4.3 mmol/L (3.5-5.1)
[2022-08-14 16:19] LABS: Glucose,Whole Blood 225 mg/dL (70-110)
[2022-08-14 16:20] LABS: INR 1.1 (<1.2); Partial Thromboplastin Time 22.6 sec (22.0-30.0); Prothrombin Time 11.5 sec (9.0-12.0)
[2022-08-14 16:32] LABS: Appearance,Urine Clear (Clear); Bacteria,Urine Rare /hpf; Bilirubin,Urine 2+ (Negative); Blood,Urine Negative (Negative); Color,Urine Yellow; Glucose,Urine (UA) 4+ (Negative); Ketones,Urine Negative (Negative); Leukocyte Esterase,Urine Moderate (Negative); Nitrite,Urine Negative (Negative); PH, Urine 6.5 (5.0-8.0); Protein,Urine Trace (Negative); RBC,Urine 3 /hpf (0-5); Specific Gravity,Urine 1.032 (1.001-1.035); Squamous Epithelial Cell,Urine 2 /hpf (0-4); Urobilinogen,Urine <2.0 mg/dL (<2.0); WBC,Urine 24 /hpf (0-5)
--- NOTE | 2022-08-14 17:24 | CT ---
EXAMINATION TYPE: CT abdomen pelvis w con DATE OF EXAM: 08/14/2022 COMPARISON: 05/09/2022 HISTORY: abnormal LFT CT DLP: 1928.9 mGycm Automated exposure control for dose reduction was used. CONTRAST: Performed with IV Contrast, patient injected with 100 mL of Isovue 300. Images obtained from the diaphragm to the floor the pelvis with the IV contrast. Lung bases show some patchy atelectasis in the left lower lobe. No pleural effusion. Heart size is fa irly normal. No pericardial effusion. Liver is intact. There are clips from cholecystectomy. Stomach is intact. Spleen appears normal. No d efinite pancreatic mass. There is an irregular mixed density mass in the right upper quadrant which i s anterior to the right kidney and adjacent to the duodenum and the pancreatic head that measures 11 cm in maximum dimension. The mass is encasing the second and third part of the duodenum. Mass appears to be infiltrating the right renal hilum. Mass has soft tissue and fluid density components. There i s enlarged 2.5 cm lymph node anterior to the abdominal aorta at the level of the renal arteries. The kidneys have normal size. No hydronephrosis. There are bilateral renal cortical cysts measuring u p to 3.2 cm. No dilated ureters. Bladder distends smoothly. No inguinal hernia. No free fluid in the pelvis. The lumbar vertebrae have normal spacing and alignment. Posterior elements are intact. No compression fracture. Bony pelvis is intact. The hip joints are intact. There is no ascites or free air. No sign of a bowel obstruction. There are few sigmoid diverticula. N o diverticulitis. Appendix not seen. No sign of thickened appendix. 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 Follow-up is recommended. The mass had features of adrenal hemorrhage on previous CT sca n and I do not think has any significant hemorrhagic component and is mostly infiltrative tumor. Prim frank duodenal tumor also possible.
[2022-08-14 19:03] VITALS: BP 128/88; PULSE 79; RESP 16; TEMP 98.2
== END 2022-08-14 20:10 | disposition other institution (70) ==
LOC: EC 15:07
DX: R74.01 Elevation of levels of liver transaminase levels (principal); E11.9 Type 2 diabetes mellitus without complications; I10 Essential (primary) hypertension; E78.5 Hyperlipidemia, unspecified; Z85.72 Personal history of non-Hodgkin lymphomas; Z95.0 Presence of cardiac pacemaker; Z79.4 Long term (current) use of insulin; Z79.01 Long term (current) use of anticoagulants; Z79.899 Other long term (current) drug therapy; Z20.822 Contact with and (suspected) exposure to COVID-19; Z86.16 Personal history of COVID-19
CPT/HCPCS: 36415; 93005; 83880; 80053; 82140; 83735; 84484; 85025; 85610; 85730; 81001; 87040; 87086; 87635; 71046; 70450; 74177; 99285; G0480; Q9967; 80320